=== PATIENT | female | born 1955 | race Caucasian/White ===

== ENCOUNTER → 2019-01-23 | Outpatient (CLI) | payer MEDICARE ==
--- NOTE | 2019-01-24 07:09 | US ---
EXAMINATION TYPE: US venous doppler duplex LE LT DATE OF EXAM: 01/23/2019 6:09 PM COMPARISON: NONE CLINICAL HISTORY: R60.0 Left leg edema. Localized edema x 1 week. No hx of DVT. Patient does not victor m e blood thinners. SIDE PERFORMED: Left TECHNIQUE: The lower extremity deep venous system is examined utilizing real time linear array sonog nyla with graded compression, doppler sonography and color-flow sonography. VESSELS IMAGED: Common Femoral Vein Deep Femoral Vein Greater Saphenous Vein * Femoral Vein Popliteal Vein Small Saphenous Vein * Proximal Calf Veins (* superficial vessels) Left Leg: Cannot visualize EIV due to body habitus. No evidence of DVT in veins imaged from prox tra f veins to CFV. Limited evaluation of distal femoral vein due to limited visibility and patient's leeanna bility to tolerate compression. IMPRESSION: No sonographic evidence of deep venous thrombosis from the common femoral vein to proxim al calf veins. Nonvisualization of the external iliac vein due to patient body habitus. Limited evalu ation of the distal femoral vein.
== END | disposition home or self-care (01) ==
LOC: RADUSMAIN 17:37
PROVIDERS: ATTEND Family Medicine
DX: R60.0 Localized edema (principal)

== ENCOUNTER 2019-12-11 18:35 | Emergency (ER) | payer OTHER, MEDICARE ==
[2019-12-11 18:50] VITALS: RESP 18; TEMP 98.2
[2019-12-11] MEDS ORDERED: ACETAMINOPHEN TAB 500 MG TAB PO STA (19:39)
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
--- NOTE | 2019-12-11 20:21 | XR ---
EXAMINATION TYPE: XR ankle complete RT DATE OF EXAM: 12/11/2019 COMPARISON: NONE HISTORY: Pain TECHNIQUE: 3 views FINDINGS: There is soft tissue swelling around the ankle joint. Ankle mortise is anatomic. There is n ondisplaced transverse fracture across the base of the fifth metatarsal. I see no focal bone destruct ion. IMPRESSION: Soft tissue swelling. Nondisplaced fifth metatarsal fracture.
--- NOTE | 2019-12-11 20:22 | XR ---
EXAMINATION TYPE: XR foot complete RT DATE OF EXAM: 12/11/2019 COMPARISON: NONE HISTORY: Pain TECHNIQUE: 3 views FINDINGS: There is soft tissue swelling around the foot. There is a comminuted nondisplaced fracture of the base of the fifth metatarsal. There is no dislocation. The toes appear intact. IMPRESSION: Acute fifth metatarsal fracture. Soft tissue swelling.
--- NOTE | 2019-12-11 20:23 | XR ---
EXAMINATION TYPE: XR chest 2V DATE OF EXAM: 12/11/2019 COMPARISON: NONE HISTORY: Pain TECHNIQUE: 2 views FINDINGS: Heart appears enlarged. There is no heart failure. Costophrenic angles are clear. Lungs are clear of infiltrate. IMPRESSION: Cardiomegaly. No active cardiopulmonary disease.
[2019-12-11] MEDS ORDERED: MORPHINE SULFATE 4 MG/ML SYRINGE IM STA (21:24)
[2019-12-11 22:18] VITALS: PULSE 78
[2019-12-11] MEDS ORDERED: lisinopriL 20 MG TAB PO STA (22:46)
[2019-12-12 01:58] VITALS: BP 201/84
== END 2019-12-11 23:59 | disposition home or self-care (01) ==
LOC: EC 18:35
DX: S92.354A Nondisplaced fracture of fifth metatarsal bone, right foot, initial encounter for closed fracture (principal); R07.89 Other chest pain; V44.5XXA Car driver injured in collision with heavy transport vehicle or bus in traffic accident, initial encounter; Y92.410 Unspecified street and highway as the place of occurrence of the external cause; Z87.891 Personal history of nicotine dependence
CPT/HCPCS: 73610; 73630; 71046; 99284; 29515; 96372; J2270

== ENCOUNTER 2022-08-11 08:33 | Day surgery (SDC) | payer MEDICARE ==
[2022-08-09 11:04] VITALS: BMI 55.5
[~2022-08-11 08:33] MED LIST: DEXAMETHASONE SOD PHOSPHATE 4 MG/ML 1 ML VIAL IV ONE; HYDROmorphone 0.5 MG/0.5 ML SYRINGE IVP PRN; LACTATED RINGERS 1,000 ML IV SCH; MIDAZOLAM 2 MG/2 ML VIAL IV PRN; ONDANSETRON 4 MG/2 ML VIAL IVP ONE; ceFAZolin 3 GM in SODIUM CHLORIDE 0.9% 100 ML IVPB PRN
[2022-08-11] MEDS ORDERED: SODIUM CHLORIDE 0.9% 500 ML 500 ML IV ONE (09:31)
[2022-08-11] MEDS ORDERED: MIDAZOLAM 2 MG/2 ML VIAL IVP ONE ×2 (09:32)
--- NOTE | 2022-08-11 09:35 | P.GSHP ---
History of Present Illness H&P Date: 08/11/22 Chief Complaint: chronic kidney disease 67 year old female with history of chronic kidney disease in need of access for possible future dialysis presents to the hospital for elective left radial cephalic fistula creation. She underwent ultrasound which demonstrated good siz e cephalic vein at the wrist up to the elbow. She denies any fevers, chills, chest pain or shortness of breath. - Review of Systems All systems: negative (what is mentioned in the PMH or HPI) Past Medical History Past Medical History: Diabetes Mellitus, Eye Disorder, Hyperlipidemia, Hypertension, Renal Disease, Skin Disorder, Thyroid Disorder Additional Past Medical History / Comment(s): Left shoulder and right hip pain. Kidney Disease - Stage 4. Unknown name of skin disorder. Cataract in one eye. History of Any Multi-Drug Resistant Organisms: None Reported Past Surgical History: Section, Tonsillectomy Additional Past Surgical History / Comment(s): "Female surgery, can't remember name of surgery." Past Anesthesia/Blood Transfusion Reactions: Previous Problems w/ Anesthesia Additional Past Anesthesia/Blood Transfusion Reaction / Comment(s): Difficulty urinating after one surgery. Past Psychological History: No Psychological Hx Reported Smoking Status: Former smoker Past Alcohol Use History: None Reported Additional Past Alcohol Use History / Comment(s): Quit smoking 3 yrs ago, smoked for 20 yrs. Past Drug Use History: None Reported - Past Family History Mother Family Medical History: No Reported History Medications and Allergies Home Medications Medication Instructions Recorded Confirmed Type Benazepril HCl 20 mg PO QAM 08/09/22 08/11/22 History Cephalexin [Keflex] 250 mg PO 08/09/22 08/11/22 History Dialyvite 1 tab PO DAILY 08/09/22 08/11/22 History Ergocalciferol [Vitamin D2 (1250 1,250 mcg PO TUFR 08/09/22 08/11/22 History Mcg = 30783 Iu)] Ferrous Sulfate [Iron] 650 mg PO DAILY 08/09/22 08/11/22 History Glimepiride [Amaryl] 1 mg PO DAILY 08/09/22 08/11/22 History Levothyroxine Sodium [Synthroid] 150 mcg PO QAM 08/09/22 08/11/22 History Rosuvastatin Calcium 5 mg PO 05/17/23 05/19/23 History calcitrioL [Calcitriol] 0.5 mcg PO DAILY 08/09/22 08/11/22 History Allergies Allergy/AdvReac Type Severity Reaction Status Date / Time No Known Allergies Allergy Verified 08/11/22 09:03 Surgical - Exam Vital Signs Temp Pulse Resp BP Pulse Ox 98.6 F 65 14 171/74 94 L 08/11/22 09:20 08/11/22 09:20 08/11/22 09:20 08/11/22 09:20 08/11/22 09:20 - General well developed, well nourished, no distress - Eyes PERRL, normal ocular movement - ENT normal pinna, normal nares - Neck no masses - Respiratory normal expansion, normal respiratory effort - Cardiovascular Rhythm: regular - Abdomen Abdomen: soft, non tender - Neurologic normal sensation - Musculoskeletal normal gait - Psychiatric oriented to time, oriented to person, oriented to place, speech is normal palpable radial arteries bilateral Assessment and Plan Assessment: Chronic kidney disease stage 5 Plan: To OR for left arteriovenous fistula creation. Consent signed. Questions answered.
[2022-08-11 09:37] LABS: Glucose,Whole Blood 113 mg/dL (70-110)
[2022-08-11 09:42] LABS: Calcium 8.6 mg/dL (8.4-10.2)
[2022-08-11 09:44] LABS: Potassium 5.6 mmol/L (3.5-5.1)
[2022-08-11] MEDS ORDERED: LIDOCAINE 2% INJ 20 MG/ML (2 ML VIAL) ONE (09:48)
[2022-08-11] MEDS ORDERED: fentaNYL (PF) 50 MCG/ML 2 ML AMP ONE (09:48)
[2022-08-11] MEDS ORDERED: LIDOCAINE 2%-EPI 1:100,000 20 ML VIAL ONE (09:48)
[2022-08-11] MEDS ORDERED: MIDAZOLAM 2 MG/2 ML VIAL ONE (09:48)
[2022-08-11] MEDS ORDERED: ROPIVACAINE 5 MG/ML 30 ML VIAL ONE (09:48)
[2022-08-11] MEDS ORDERED: BUPIVACAINE (PF) 0.25% 30 ML VIAL SQ ONE ×2 (10:18→11:05)
[2022-08-11] MEDS ORDERED: LIDOCAINE 1% INJ 10MG/ML (20 ML MDV) SQ ONE ×2 (10:21→11:05)
--- NOTE | 2022-08-11 10:21 | P.ANPRN ---
Procedure Note - Anesthesia - Nerve Block Performed Left Supraclavicular Single Time Out Performed: Yes (0936) Date of Procedure: 08/11/22 Procedure Start Time: :37 Procedure Stop Time: :44 Location of Patient: PreOp Indication: Acute Post-Operative Pain, Requested by Surgeon Specifically requested for management of pain by DrFred: Juan Bryant Sedation Type: Sedate with meaningful contact maintained Preparation: Sterile Prep Position: Supine Catheter: None Needle Types: Pajunk Needle Gauge: 21 Ultrasound used to visualize needle placement: Yes Ultrasound used to observe medication spread: Yes Injectate: Other (see comment) (Ropi 0.5% 20cc and Lido 2% with epi 20cc) Blood Aspirated: No Pain Paresthesia on Injection Noted: No Resistance on Injection: Normal Image Stored and Saved: Yes Events: Uneventful and Well Tolerated
[2022-08-11 11:35] VITALS: TEMP 97.4
[2022-08-11 11:40] LABS: Glucose,Whole Blood 164 mg/dL (70-110)
--- NOTE | 2022-08-11 12:03 | P.OP ---
Date of Procedure: 08/11/22 Preoperative Diagnosis: Chronic renal failure Postoperative Diagnosis: Same Procedure(s) Performed: Left upper extremity radial-cephalic fistula creation Anesthesia: MAC Surgeon: Tapan Marin Estimated Blood Loss (ml): 30 Pathology: none sent Condition: stable Disposition: PACU Indications for Procedure: 67 year old female with history of chronic renal failure presents to the hospital for elective left upper extremity fistula creation. Ultrasound was completed prior and was found to have appropriate size cephalic vein on the left and presents today for radial-cephalic fistula creation. Operative Findings: Diminutive cephalic vein at the wrist. Description of Procedure: After written and informed consent was obtained from the patient the patient was brought to the operative suite and laid in a supine position. The left arm was prepped and draped in the usual sterile fashion after appropriate anesthesia was performed per the anesthesiologist. Utilizing ultrasound the cephalic vein was visualized and marked and shown to be good size. A small vertical incision was then created with a 15 blade scalpel just proximal to the wrist and dissection was carried down to the radial artery which was dissected free in a circumferential manner. Proximal distal control was then obtained with vessel loops. Attention was then placed back to the cephalic vein which was located and dissected free in a circumferential manner distally to the wrist. At the wrist it was ligated with silk suture. Further dissection was carried around the vein and the vein was brought over to the radial artery. Serial dilation was then performed on the vein and good backbleeding was noted. Vein was diminutive roughly measuring 2.5 mm. Patient was administered 3000 units of heparin and the radial artery was clamped at the proximal and distal aspect. Utilizing 11 blade scalpel and arteriotomy was created and extended with Pott Tobias scissors. There was good brisk backbleeding noted from the radial artery and pulsatile blood flow visualized from the proximal aspect. The vein was then spatulated and an end-to-side anastomosis was created with a 7-0 Prolene suture. Prior to last sutures being placed the control was released from the vein revealing good backbleeding and distal control on the radial artery was released revealing good back flow. The proximal control was then released and good pulsatile blood flow was visualized in the fistula and final sutures were secured. The area was copiously irrigated with antibiotic solution. Hemostasis was assured. The vessels were then interrogated with Doppler which demonstrated good multiphasic signal distal to the anastomosis as well as positive pulse within the vein consistent with good fistula creation. Under ultrasound there was pulsatile flow noted in the cephalic vein. The incision was then closed in a multilayer fashion. The skin was cleansed and dressings were placed. Patient does procedure well and was sent to PACU for recovery.
[2022-08-11 14:17] VITALS: BP 155/67; PULSE 64; RESP 18
== END 2022-08-11 14:42 | disposition home or self-care (01) ==
LOC: OR 08:33
PROVIDERS: ATTEND Surgery
DX: I12.9 Hypertensive chronic kidney disease with stage 1 through stage 4 chronic kidney disease, or unspecified chronic kidney disease (principal); N18.4 Chronic kidney disease, stage 4 (severe); E11.22 Type 2 diabetes mellitus with diabetic chronic kidney disease; E78.5 Hyperlipidemia, unspecified; E03.9 Hypothyroidism, unspecified; Z87.891 Personal history of nicotine dependence; Z79.890 Hormone replacement therapy; Z79.899 Other long term (current) drug therapy; Z79.84 Long term (current) use of oral hypoglycemic drugs; G89.18 Other acute postprocedural pain
CPT/HCPCS: 64415; 80048; 36821; J2250; J1100; J0690; J2405; J2001 ×2; J3010; J2795

== ENCOUNTER → 2022-10-09 | Day surgery (SDC) | payer MEDICARE ==
[2022-10-04 10:39] VITALS: BMI 56.0
[~2022-10-09] MED LIST changes: +DEXAMETHASONE SOD PHOSPHATE 4 MG/ML 1 ML VIAL ONE; +HEPARIN SODIUM,PORCINE 2,000 UNIT in SODIUM CHLORIDE 0.9% 500 ML 500 ML IRRIGATION ONE; +HEPARIN SODIUM,PORCINE 5,000 UNIT/ML 1 ML VIAL ONE; +IV FLUID CONTINUATION 200 ML IV ONE; +KETAMINE 10 MG/ML 20 ML VIAL ONE; +LIDOCAINE 1% (10MG/ML) FOR IV START INTRADERMA PRN; -MIDAZOLAM 2 MG/2 ML VIAL IV PRN; +MIDAZOLAM 2 MG/2 ML VIAL IVP ONE; +MIDAZOLAM 2 MG/2 ML VIAL ONE; +PROPOFOL 10 MG/ML 20 ML VIAL IV ONE; +Pre Op ABX Message 1 EACH MISC MISCELLANE ONE; +ROPIVACAINE 5 MG/ML 30 ML VIAL ONE; +SODIUM CHLORIDE 0.9% (PF) 10 ML VIAL ONE; +SODIUM CHLORIDE 0.9% 100 ML with ceFAZolin 2,000 MG IV ONE; +ceFAZolin 2 GM in SODIUM CHLORIDE 0.9% 500 ML 500 ML IRRIGATION ONE; -ceFAZolin 3 GM in SODIUM CHLORIDE 0.9% 100 ML IVPB PRN; +droPERidol 5 MG/2 ML VIAL IVP PRN; +fentaNYL (PF) 50 MCG/ML 2 ML AMP IVP ONE; +fentaNYL (PF) 50 MCG/ML 2 ML AMP ONE
[2022-10-09 12:29] LABS: HCT 33.8 % (34.0-46.0); HGB 10.5 gm/dL (11.4-16.0); Hypochromasia Slight; MCH 30.8 pg (25.0-35.0); MCHC 31.1 g/dL (31.0-37.0); MCV 98.9 fL (80.0-100.0); Mean Platelet Volume 7.6; Platelet Count 278 k/uL (150-450); RBC 3.41 m/uL (3.80-5.40)
[2022-10-09 12:48] LABS: Glucose 128 mg/dL (74-99); Sodium 138 mmol/L (137-145)
[2022-10-09 12:49] LABS: African American GFR (CKD) 22 (>60 ml/min/1.73 sqM); Anion Gap 8 mmol/L; Blood Urea Nitrogen 52 mg/dL (7-17); Calcium 8.5 mg/dL (8.4-10.2); Carbon Dioxide 24 mmol/L (22-30); Chloride 106 mmol/L (98-107); Non-African American GFR(CKD) 19 (>60 ml/min/1.73 sqM)
[2022-10-09 13:00] LABS: Potassium 5.1 mmol/L (3.5-5.1)
--- NOTE | 2022-10-09 13:32 | P.ANPRN ---
Procedure Note - Anesthesia - Nerve Block Performed Left Supraclavicular Single Time Out Performed: Yes Date of Procedure: 10/09/22 Procedure Start Time: 13:10 Procedure Stop Time: 13:16 Location of Patient: PreOp Indication: Acute Post-Operative Pain, Requested by Surgeon Specifically requested for management of pain by DrFred: Tapan Marin Sedation Type: Sedate with meaningful contact maintained Preparation: Sterile Prep Position: Supine Needle Types: Pajunk Needle Gauge: 21 Ultrasound used to visualize needle placement: Yes Ultrasound used to observe medication spread: Yes Injectate: 0.5% Ropivacaine (see comment for volume) (20 ml + 10 ml NS + 4 mg dexamethason) Blood Aspirated: No Pain Paresthesia on Injection Noted: No Resistance on Injection: Normal Image Stored and Saved: Yes Events: Uneventful and Well Tolerated
[2022-10-09 15:57] VITALS: TEMP 96.9
--- NOTE | 2022-10-09 16:01 | P.OP ---
Date of Procedure: 10/09/22 Preoperative Diagnosis: Chronic kidney disease Postoperative Diagnosis: Same Procedure(s) Performed: Left upper extremity radiocephalic fistula creation Anesthesia: regional Surgeon: Tapan Marin Estimated Blood Loss (ml): 10 Pathology: none sent Condition: stable Disposition: PACU Indications for Procedure: 67-year-old female with history of chronic kidney disease and previous radiocephalic fistula that failed presented to the office and discussion was had due to her large cephalic vein that split and traveled across the dorsal aspect of her forearm to her hand the large aspect of the vein was not utilized but a branch and therefore we discussed revision with possible utilization of this larger cephalic vein. She presents today for redo radiocephalic fistula. Description of Procedure: After written and informed consent was obtained from the patient the patient was brought to the operative suite and laid in a supine position. The left arm was prepped and draped in the usual sterile fashion after appropriate anesthesia was performed per the anesthesiologist. Utilizing ultrasound the cephalic vein was visualized and marked and shown to be good size. A small vertical incision was then created with a 15 blade scalpel just proximal to the wrist and dissection was carried down to the radial artery which was dissected free in a circumferential manner. Proximal distal control was then obtained with vessel loops. Attention was then placed back to the cephalic vein which was located and shown to be overlying the middle portion of her forearm therefore a small incision was created at the dorsal aspect of the lower arm and the cephalic vein was dissected free in a circumferential manner distally to the wrist. At the wrist it was ligated with silk suture. Further dissection was carried around the vein and the vein was brought over to the radial artery by tunneling from the venous incision to the arterial incision. Serial dilation was then performed on the vein and good backbleeding was noted. Patient was administered 3000 units of heparin and the radial artery was clamped at the proximal and distal aspect. Utilizing 11 blade scalpel and arteriotomy was created and extended with Pott Tobias scissors. There was good brisk backbleeding noted from the radial artery and pulsatile blood flow visualized from the proximal aspect. The vein was then spatulated and an end-to-side anastomosis was created with a 7-0 Prolene suture. Prior to last sutures being placed the control was released from the vein revealing good backbleeding and distal control on the radial artery was released revealing good back flow. The proximal control was then released and good pulsatile blood flow was visualized in the fistula and final sutures were secured. The area was copiously irrigated with antibiotic solution. Hemostasis was assured. The vessels were then interrogated with Doppler which demonstrated good multiphasic signal distal to the anastomosis as well as positive bruit within the vein consistent with good fistula creation. Under ultrasound there was pulsatile flow noted in the cephalic vein. The incision was then closed in a multilayer fashion. The skin was cleansed and dressings were placed. Patient does procedure well and was sent to PACU for recovery. Plan - Discharge Summary Discharge Rx Participant: No New Discharge Prescriptions: No Action Ergocalciferol [Vitamin D2 (1250 Mcg = 05142 Iu)] 1,250 mcg PO TUFR calcitrioL [Calcitriol] 0.5 mcg PO DAILY Levothyroxine Sodium [Synthroid] 150 mcg PO QAM Ferrous Sulfate [Iron] 650 mg PO DAILY Dialyvite 1 tab PO DAILY Cephalexin [Keflex] 250 mg PO HS Glimepiride [Amaryl] 1 mg PO DAILY Rosuvastatin Calcium 5 mg PO HS Benazepril HCl 20 mg PO QAM Discharge Medication List Benazepril HCl 20 mg PO QAM 08/09/22 [History] Cephalexin [Keflex] 250 mg PO HS 08/09/22 [History] Dialyvite 1 tab PO DAILY 08/09/22 [History] Ergocalciferol [Vitamin D2 (1250 Mcg = 42181 Iu)] 1,250 mcg PO TUFR 08/09/22 [History] Ferrous Sulfate [Iron] 650 mg PO DAILY 08/09/22 [History] Glimepiride [Amaryl] 1 mg PO DAILY 08/09/22 [History] Levothyroxine Sodium [Synthroid] 150 mcg PO QAM 08/09/22 [History] Rosuvastatin Calcium 5 mg PO HS 08/09/22 [History] calcitrioL [Calcitriol] 0.5 mcg PO DAILY 08/09/22 [History] Follow up Appointment(s)/Referral(s): Tapan Marin DO [STAFF PHYSICIAN] - 2 Weeks Activity/Diet/Wound Care/Special Instructions: ok to shower in 48 hours no heavy lifting greater than 15 lbs x 2 weeks Discharge Disposition: HOME SELF-CARE
[2022-10-09 16:04] LABS: Glucose,Whole Blood 136 mg/dL (70-110)
[2022-10-09 16:49] VITALS: PULSE 66; RESP 18
[2022-10-09 17:33] VITALS: BP 152/67
== END | disposition home or self-care (01) ==
LOC: OR 11:07
PROVIDERS: ATTEND Surgery
DX: N18.9 Chronic kidney disease, unspecified (principal); I12.9 Hypertensive chronic kidney disease with stage 1 through stage 4 chronic kidney disease, or unspecified chronic kidney disease; E78.5 Hyperlipidemia, unspecified; E03.9 Hypothyroidism, unspecified; G89.18 Other acute postprocedural pain; Z79.899 Other long term (current) drug therapy; Z90.710 Acquired absence of both cervix and uterus; Z90.89 Acquired absence of other organs; Z98.891 History of uterine scar from previous surgery
CPT/HCPCS: 64415; 80048; 85027; 36821; J2250; J1644; J1100; J0690 ×2; J2405; J3010; J2795; J2704

== ENCOUNTER 2023-09-09 22:16 | Emergency (ER) | payer MEDICARE ==
[2023-09-09 22:30] VITALS: TEMP 97.6
--- NOTE | 2023-09-09 22:51 | ED ---
Fall HPI - General Chief Complaint: Fall Stated Complaint: Fall-on thinners Time Seen by Provider: 09/09/23 22:22 Source: patient Mode of arrival: EMS Limitations: no limitations - History of Present Illness Initial Comments: Patient is a 68-year-old woman who is sent here from [facility] to have evaluation for head injury. Patient reportedly had stood up from commode, lost balance fell backwards striking head. Patient unsure whether there was loss of consciousness. The fall was not witnessed. The patient complains of right posterior headache and swelling. She did not note any bleeding. Patient denies neck pain. Denies other injury. Complaint: fall Onset/Timin -: hour(s) Fall From: standing Fall Witnessed: no Place Fall Occurred: [facility] Loss of Consciousness: unsure Prolonged Down Time?: no Symptoms Prior to Fall: dizziness Location: head Severity: moderate Quality: dull Context: tripped/slipped Associated Symptoms: headache - Related Data Home Medications Medication Instructions Recorded Confirmed Benazepril HCl 20 mg PO QAM 08/09/22 10/09/22 Cephalexin [Keflex] 250 mg PO 08/09/22 10/09/22 Dialyvite 1 tab PO DAILY 08/09/22 10/09/22 Ergocalciferol [Vitamin D2 (1250 1,250 mcg PO TUFR 08/09/22 10/09/22 Mcg = 05979 Iu)] Ferrous Sulfate [Iron] 650 mg PO DAILY 08/09/22 10/09/22 Glimepiride [Amaryl] 1 mg PO DAILY 08/09/22 10/09/22 Levothyroxine Sodium [Synthroid] 150 mcg PO QAM 08/09/22 10/09/22 Rosuvastatin Calcium 5 mg PO 08/09/22 10/09/22 calcitrioL 0.5 mcg PO DAILY 08/09/22 10/09/22 Allergies Allergy/AdvReac Type Severity Reaction Status Date / Time No Known Allergies Allergy Verified 10/09/22 12:08 Review of Systems ROS Statement: Those systems with pertinent positive or pertinent negative responses have been documented in the HPI. ROS Other: All systems not noted in ROS Statement are negative. Constitutional: Denies: fever Eyes: Denies: vision change ENT: Denies: hearing loss, epistaxis Respiratory: Denies: cough, dyspnea Cardiovascular: Denies: chest pain, palpitations Gastrointestinal: Denies: abdominal pain, nausea, vomiting Genitourinary: Denies: dysuria, hematuria Musculoskeletal: Denies: back pain Skin: Denies: rash Neurological: Reports: headache. Denies: weakness, numbness, confusion Hematological/Lymphatic: Denies: easy bleeding Past Medical History Past Medical History: Diabetes Mellitus, Eye Disorder, Hyperlipidemia, Hypertension, Renal Disease, Skin Disorder, Thyroid Disorder Additional Past Medical History / Comment(s): Left shoulder and right hip pain. Kidney Disease - Stage 4-no dialysis,has good urine production.scattered raised lumps-Unknown name of skin disorder. left eye cataract, possible Covid infection Resp 2020-was in respiratory distress in ICU for 1 week History of Any Multi-Drug Resistant Organisms: None Reported Past Surgical History: Section, Tonsillectomy Additional Past Surgical History / Comment(s): "Female surgery, can't remember name of surgery.",left cataract removed,rt eye procedure,failed fistula creation left upper arm procedure 08-11-22 Past Anesthesia/Blood Transfusion Reactions: Previous Problems w/ Anesthesia Additional Past Anesthesia/Blood Transfusion Reaction / Comment(s): Difficulty urinating after one surgery. no hx blood transfusion Past Psychological History: Depression Smoking Status: Former smoker - Past Family History Mother Family Medical History: No Reported History Sister(s) Family Medical History: Cancer Additional Family Medical History / Comment(s): uterine CA General Exam Limitations: no limitations General appearance: alert, in no apparent distress Head exam: Present: normocephalic, other (Patient posterior scalp contusion. There is moderate local tenderness, no definite deformity.) Eye exam: Present: normal appearance, PERRL, EOMI. Absent: scleral icterus, conjunctival injection, nystagmus ENT exam: Present: normal oropharynx Neck exam: Present: normal inspection, full ROM. Absent: tenderness, meningismus Respiratory exam: Present: normal lung sounds bilaterally. Absent: respiratory distress, wheezes, rales, rhonchi, stridor, chest wall tenderness, accessory muscle use Cardiovascular Exam: Present: regular rate, normal rhythm, normal heart sounds. Absent: systolic murmur, diastolic murmur, rubs, gallop GI/Abdominal exam: Present: soft. Absent: distended, tenderness, guarding, rebound, rigid Extremities exam: Present: normal inspection, normal capillary refill. Absent: pedal edema, calf tenderness Back exam: Present: normal inspection. Absent: vertebral tenderness Neurological exam: Present: alert, oriented X3, CN II-XII intact. Absent: motor sensory deficit Skin exam: Present: warm, dry, intact, normal color. Absent: rash Course Vital Signs 09/09/23 09/10/23 22:20 00:36 Temperature 97.6 F Pulse Rate 73 72 Respiratory 16 18 Rate Blood Pressure 122/95 129/76 O2 Sat by Pulse 96 98 Oximetry Medical Decision Making - Medical Decision Making Patient had CT of the brain which I interpreted as negative for acute intracranial hemorrhage or acute bony injury. Was pt. sent in by a medical professional or institution (, PA, WALL STEAMER, urgent care, hospital, or [facility] [facility]...) When possible be specific @ -[No] Did you speak to anyone other than the patient for history (EMS, parent, family, police, friend...)? What history was obtained from this source @ -[No] Did you review nursing and triage notes (agree or disagree)? Why? @ -[I reviewed and agree with nursing and triage notes] Were old charts reviewed (outside hosp., previous admission, EMS record, old EKG, old radiological studies, urgent care reports/EKG's, [facility] [facility] records)? Report findings @ -[No old charts were reviewed] Differential Diagnosis (chest pain, altered mental status, abdominal pain women, abdominal pain men, vaginal bleeding, weakness, fever, dyspnea, syncope, headache, dizziness, GI bleed, back pain, seizure, CVA, palpatations, mental health, musculoskeletal)? @ -[Differential Musculoskeletal Muscular strain, contusion, ligament sprain, fracture, muscle spasm, nerve compression, intracranial hemorrhage. This is not meant to be in all inclusive list EKG interpreted by me (3pts min.). @ -[As above] X-rays interpreted by me (1pt min.). @ -[None done] CT interpreted by me (1pt min.). @ -[I interpreted as above U/S interpreted by me (1pt. min.). @ -[None done] What testing was considered but not performed or refused? (CT, X-rays, U/S, labs)? Why? @ -[None] What meds were considered but not given or refused? Why? @ -[None] Did you discuss the management of the patient with other professionals (professionals i.e. , PA, WALL STEAMER, lab, RT, psych nurse, social service technician, intellectual property lawyer, teacher, weapons electrical engineering officer, rn case manager)? Give summary @ -[No] Was smoking cessation discussed for >3mins.? @ -[No] Was critical care preformed (if so, how long)? @ -[No] Were there social determinants of health that impacted care today? How? (Homelessness, low income, unemployed, alcoholism, drug addiction, transportation, low edu. Level, literacy, decrease access to med. care, fdc, rehab)? @ -[No] Was there de-escalation of care discussed even if they declined (Discuss DNR or withdrawal of care, Hospice)? DNR status @ -[No] What co-morbidities impacted this encounter? (DM, HTN, Smoking, COPD, CAD, Cancer, CVA, ARF, Chemo, Hep., AIDS, mental health diagnosis, sleep apnea, morbid obesity)? @ -[None] Was patient admitted / discharged? Hospital course, mention meds given and route, prescriptions, significant lab abnormalities, going to OR and other pertinent info. @ -[Patient is a 68-year-old woman here to have evaluation after fall. CT is ordered as the patient does have larger than expected scalp hematoma, to rule out cranial fracture. Undiagnosed new problem with uncertain prognosis? @ -[No] Drug Therapy requiring intensive monitoring for toxicity (Heparin, Nitro, Insulin, Cardizem)? @ -[No] Were any procedures done? @ -[No] Diagnosis/symptom? @ -[Closed head injury Scalp hematoma Acute, or Chronic, or Acute on Chronic? @ -[Acute Uncomplicated (without systemic symptoms) or Complicated (systemic symptoms)? @ -[Uncomplicated Side effects of treatment? @ -[No] Exacerbation, Progression, or Severe Exacerbation? @ -[No] Poses a threat to life or bodily function? How? (Chest pain, [place], [place], pneumonia, PE, COPD, DKA, ARF, appy, cholecystitis, CVA, Diverticulitis, Homicidal, Suicidal, threat to staff... and all critical care pts) @ -[No] Disposition Clinical Impression: Fall, Head injury Disposition: HOME SELF-CARE Condition: Good Instructions (If sedation given, give patient instructions): Fall Prevention for Older Adults (ED), Head Injury (ED) Is patient prescribed a controlled substance at d/c from ED?: No Referrals: Marcy Adams MD [Primary Care Provider] - 1-2 days
--- NOTE | 2023-09-09 23:50 | CT ---
EXAM: CT Head Without Intravenous Contrast CLINICAL HISTORY: ITS.REASON CT Reason: fall injury TECHNIQUE: Axial computed tomography images of the head/brain without intravenous contrast. CTDI is 49.1 mGy and DLP is 1227.4 mGy-cm. This CT exam was performed using one or more of the following dose reduction techniques: automated exposure control, adjustment of the mA and/or kV according to patient size, and/or use of iterative reconstruction technique. COMPARISON: No relevant prior studies available. FINDINGS: No acute intracranial hemorrhage. No midline shift or mass effect. The territorial friend-white matter differentiation is maintained throughout. RIGHT parietal scalp soft tissue swelling. Age-related cerebral volume loss. Periventricular and subcortical white matter hypoattenuation, consistent with chronic microangiopathy. The visualized orbits appear grossly unremarkable. The calvarium is intact. The visualized paranasal sinuses and mastoid air cells are grossly clear. IMPRESSION: No acute intracranial hemorrhage, midline shift, or mass effect. RIGHT parietal scalp soft tissue swelling.
[2023-09-10 00:38] VITALS: BP 129/76; PULSE 72; RESP 18
== END 2023-09-10 01:20 | disposition home or self-care (01) ==
LOC: EC 22:16
DX: S00.03XA Contusion of scalp, initial encounter (principal); Z87.891 Personal history of nicotine dependence; W17.89XA Other fall from one level to another, initial encounter
CPT/HCPCS: 70450; 99284

== ENCOUNTER 2023-10-27 13:15 | Inpatient (IN) | payer MEDICARE ==
--- NOTE | 2023-10-27 13:34 | ED ---
General Adult HPI - General Chief complaint: Altered Mental Status Stated complaint: hypotension, syncope Time Seen by Provider: 10/27/23 13:18 Source: patient, EMS, RN notes reviewed, old records reviewed Mode of arrival: EMS Limitations: no limitations - History of Present Illness Initial comments: Patient is a 68-year-old female presenting to the emergency department with syncopal episodes. Episode started within the last hour. Patient comes from [facility]term and had a syncopal episode there. There is questionable hypotension. Patient did have 1 syncopal episode by EMS and was drowsy several times however blood pressure they obtained was not hypotensive. Patient admits to feeling drowsy and fatigued at this time however has no other complaints. No chest pain. No dyspnea. Patient denies confusion. - Related Data Home Medications Medication Instructions Recorded Confirmed Dialyvite 1 tab PO DAILY 08/09/22 10/27/23 Ergocalciferol [Vitamin D2 (1250 1,250 mcg PO WE 08/09/22 10/27/23 Mcg = 47443 Iu)] Ferrous Sulfate [Iron] 325 mg PO BID 08/09/22 10/27/23 Acetaminophen Tab [Tylenol] 650 mg PO Q6H PRN 10/27/23 10/27/23 Apixaban [Eliquis] 5 mg PO BID 10/27/23 10/27/23 Atorvastatin [Lipitor] 10 mg PO DAILY 10/27/23 10/27/23 Atorvastatin [Lipitor] 20 mg PO HS 10/27/23 10/27/23 Budesonide [Pulmicort] 0.5 mg INHALATION RT-BID 10/27/23 10/27/23 Bumetanide [Bumex] 1 mg PO DAILY 10/27/23 10/27/23 Bumetanide [Bumex] 1 mg PO Q48H 10/27/23 10/27/23 Dulaglutide [Trulicity] 0.75 mg SQ FR 10/27/23 10/27/23 Famotidine [Pepcid] 10 mg PO DAILY 10/27/23 10/27/23 Insulin Glargine [Lantus Vial] 10 unit SQ DAILY 10/27/23 10/27/23 Insulin Lispro [Admelog Solostar] 2 units SQ DAILY@1100 10/27/23 10/27/23 Insulin Lispro [Admelog Solostar] See Protocol SQ ACHS 10/27/23 10/27/23 Ipratropium-Albuterol Nebulize 3 ml INHALATION RT-BID 10/27/23 10/27/23 [Duoneb 0.5 mg-3 mg/3 ml Soln] L.acidoph,Paracasei, B.lactis 1 cap PO DAILY 10/27/23 10/27/23 [Probiotic] Levothyroxine Sodium [Synthroid] 175 mcg PO DAILY 10/27/23 10/27/23 Metoprolol Tartrate [Lopressor] 25 mg PO DAILY 10/27/23 10/27/23 Potassium Chloride ER [K-Dur 20] 20 meq PO Q48H 10/27/23 10/27/23 Thiamine [Vitamin B-1] 100 mg PO DAILY 10/27/23 10/27/23 amLODIPine [Norvasc] 10 mg PO DAILY 10/27/23 10/27/23 sitaGLIPtin [Januvia] 50 mg PO DAILY 10/27/23 10/27/23 Allergies Allergy/AdvReac Type Severity Reaction Status Date / Time No Known Allergies Allergy Verified 10/27/23 13:37 Review of Systems ROS Statement: Those systems with pertinent positive or pertinent negative responses have been documented in the HPI. ROS Other: All systems not noted in ROS Statement are negative. Constitutional: Denies: fever Eyes: Denies: eye pain ENT: Denies: ear pain Respiratory: Denies: dyspnea Cardiovascular: Denies: chest pain Gastrointestinal: Denies: abdominal pain Musculoskeletal: Denies: back pain Past Medical History Past Medical History: Diabetes Mellitus, Eye Disorder, Hyperlipidemia, Hypertension, Renal Disease, Skin Disorder, Thyroid Disorder Additional Past Medical History / Comment(s): Left shoulder and right hip pain. Kidney Disease - Stage 4-no dialysis,has good urine production.scattered raised lumps-Unknown name of skin disorder. left eye cataract, possible Covid infection Resp 2020-was in respiratory distress in ICU for 1 week History of Any Multi-Drug Resistant Organisms: None Reported Past Surgical History: Section, Tonsillectomy Additional Past Surgical History / Comment(s): "Female surgery, can't remember name of surgery.",left cataract removed,rt eye procedure,failed fistula creation left upper arm procedure 08-11-22 Past Anesthesia/Blood Transfusion Reactions: Previous Problems w/ Anesthesia Additional Past Anesthesia/Blood Transfusion Reaction / Comment(s): Difficulty urinating after one surgery. no hx blood transfusion Past Psychological History: Depression Smoking Status: Former smoker Past Alcohol Use History: Unable to Obtain Past Drug Use History: Unable to Obtain - Past Family History Mother Family Medical History: No Reported History Sister(s) Family Medical History: Cancer Additional Family Medical History / Comment(s): uterine CA General Exam Limitations: no limitations General appearance: alert Head exam: Present: atraumatic Eye exam: Present: normal appearance, PERRL, EOMI Respiratory exam: Present: normal lung sounds bilaterally Cardiovascular Exam: Present: bradycardia Expanded Peripheral pulses: 1+: Carotid (R), Carotid (L), Radial (R), Radial (L) GI/Abdominal exam: Present: soft. Absent: tenderness Extremities exam: Present: pedal edema Neurological exam: Present: alert, altered. Absent: motor sensory deficit Psychiatric exam: Present: flat affect Skin exam: Present: other (Ulcer right lower leg) Course Vital Signs 10/27/23 10/27/23 10/27/23 13:18 13:45 14:31 Pulse Rate 53 L 20 L 71 Respiratory 16 20 22 Rate Blood Pressure 116/95 88/51 O2 Sat by Pulse 99 96 Oximetry 10/27/23 10/27/23 14:58 15:30 Pulse Rate 63 64 Respiratory 20 20 Rate Blood Pressure 78/39 79/39 O2 Sat by Pulse 94 L 92 L Oximetry EKG Findings - EKG Results: EKG: interpreted by ERMD ([place] left. First-degree AV block with a ND of 216. Nonspecific intraventricular conduction delay.), sinus rhythm, normal ST/T EKG shows: bradycardia Procedures - Central Line Placement Right Femoral Consent Obtained: verbal consent, emergent situation Patient Placed on Monitor/Pulse Ox: Yes MD Prep: mask, gown, gloves Central Line Prep: Chlorhexidine scrub Local Anesthesia Used: Lidocaine 1% Amount of Anesthesia Used (mls): 1 Ultrasound Used for Placement: Yes Patient Tolerated Procedure: no complications Additional Comments: Unable to pass guidewire. Unable to place central line. No complications otherwise. Right IJ Consent Obtained: verbal consent, emergent situation Patient Placed on Monitor/Pulse Ox: Yes MD Prep: mask, gown, gloves Central Line Prep: Chlorhexidine scrub, sterile drapes applied Local Anesthesia Used: Lidocaine 1% Amount of Anesthesia Used (mls): 2 Ultrasound Used for Placement: Yes Central Line Lumen Inserted: triple Central Line Position: good blood return, all ports aspirated, flushed, capped, sutured in place with 3-0 nylon Dressing Applied: Tegaderm Post Procedure X-Ray: tip of catheter in good position Patient Tolerated Procedure: well, no complications Medical Decision Making - Medical Decision Making Patient presents with syncopal episodes. Patient becomes drowsy and near syn copal several times in the emergency department. Patient appears to had some episodes of asystole. Was pt. sent in by a medical professional or institution (, PA, SIZING MACHINE TENDER, urgent care, hospital, or longterm...) When possible be specific @ -Patient sent in by longterm Did you speak to anyone other than the patient for history (EMS, parent, family, police, friend...)? What history was obtained from this source @ -EMS provides history as patient is a poor historian as well as history of syncopal events and blood pressure monitor Did you review nursing and triage notes (agree or disagree)? Why? @ -I reviewed and agree with nursing and triage notes Were old charts reviewed (outside hosp., previous admission, EMS record, old EKG, old radiological studies, urgent care reports/EKG's, longterm records)? Report findings @ -No old charts were reviewed Differential Diagnosis (chest pain, altered mental status, abdominal pain women, abdominal pain men, vaginal bleeding, weakness, fever, dyspnea, syncope, headache, dizziness, GI bleed, back pain, seizure, CVA, palpatations, mental health, musculoskeletal)? @ -Differential Syncope: Valvular disease, hypertrophic cardiomyopathy, pulmonary embolism, tamponade, tachycardia, bradycardia, [place], hypovolemia, hemorrhage, dissection, anemia, intracranial hemorrhage, seizure, hypoglycemia, carbon monoxide poisoning, this is not meant to be an all-inclusive list. EKG interpreted by me (3pts min.). @ -As above X-rays interpreted by me (1pt min.). @ -Chest x-ray shows cardiomegaly and CHF CT interpreted by me (1pt min.). @ -None done U/S interpreted by me (1pt. min.). @ -None done What testing was considered but not performed or refused? (CT, X-rays, U/S, labs)? Why? @ -None What meds were considered but not given or refused? Why? @ -None Did you discuss the management of the patient with other professionals ([place] i.e. , PA, SIZING MACHINE TENDER, lab, RT, psych nurse, social sciences instructor, promotor group ticket sales, teacher, chief scientific officer, therapeutic case manager)? Give summary @ -Case discussed twice with Dr. Steward who did evaluate patient in the emergency department and did request central line and will take patient for pacemaker. Case also discussed with Dr. Simmons who will consult for critical care. Case also discussed with Dr. Amber irvin who will admit covering Marcy Paul Was smoking cessation discussed for >3mins.? @ -No Was critical care preformed (if so, how long)? @ -70 minutes critical care Were there social determinants of health that impacted care today? How? (Homelessness, low income, unemployed, alcoholism, drug addiction, tra nsportation, low edu. Level, literacy, decrease access to med. care, care home, rehab)? @ -No Was there de-escalation of care discussed even if they declined (Discuss DNR or withdrawal of care, Hospice)? DNR status @ -No What co-morbidities impacted this encounter? (DM, HTN, Smoking, COPD, CAD, Cancer, CVA, ARF, Chemo, Hep., AIDS, mental health diagnosis, sleep apnea, morbid obesity)? @ -Multiple comorbidities including body habitus making central line placement more difficult Was patient admitted / discharged? Hospital course, mention meds given and route, prescriptions, significant lab abnormalities, going to OR and other pertinent info. @ -Patient presents with syncopal episodes. Patient has cardiac pauses, asystole on the monitor. Patient given atropine followed by pacemaker and dopam ine. Dopamine was increased. Patient remains hypotensive. Central line placed and Levophed started. Cardiology to take for pacemaker. Admission orders written. Patient to go to ICU following. Undiagnosed new problem with uncertain prognosis? @ -No Drug Therapy requiring intensive monitoring for toxicity (Heparin, Nitro, Insulin, Cardizem)? @ -No Were any procedures done? @ -Underlying, see above Diagnosis/symptom? @ -React pauses, asystole, syncope Acute, or Chronic, or Acute on Chronic? @ -Acute, acute Uncomplicated (without systemic symptoms) or Complicated (systemic symptoms)? @ -Complicated with hypotension Side effects of treatment? @ -No Exacerbation, Progression, or Severe Exacerbation? @ -No Poses a threat to life or bodily function? How? (Chest pain, [place], [place], pneumonia, PE, COPD, DKA, ARF, appy, cholecystitis, CVA, Diverticulitis, Homicidal, Suicidal, threat to staff... and all critical care pts) @ -High risk of threat to cardiac - Lab Data Result diagrams: 10/27/23 13:59 10/27/23 13:59 Lab Results 10/27/23 10/27/23 10/27/23 Range/Units 13:59 13:59 13:59 WBC 5.4 (3.8-10.6) k/uL RBC 3.78 L (3.80-5.40) m/uL Hgb 11.2 L (11.4-16.0) gm/dL Hct 34.3 (34.0-46.0) % MCV 90.5 (80.0-100.0) fL MCH 29.5 (25.0-35.0) pg MCHC 32.6 (31.0-37.0) g/dL RDW 16.8 H (11.5-15.5) % Plt Count 167 (150-450) k/uL MPV 7.5 Neutrophils % 79 % Lymphocytes % 11 % Monocytes % 5 % Eosinophils % 3 % Basophils % 0 % Neutrophils # 4.2 (1.3-7.7) k/uL Lymphocytes # 0.6 L (1.0-4.8) k/uL Monocytes # 0.3 (0-1.0) k/uL Eosinophils # 0.2 (0-0.7) k/uL Basophils # 0.0 (0-0.2) k/uL Hypochromasia Moderate Anisocytosis Slight PT 11.0 (10.0-12.5) sec INR 1.0 (<1.2) APTT 35.2 H (22.0-30.0) sec Sodium 132 L (137-145) mmol/L Potassium 5.4 H (3.5-5.1) mmol/L Chloride 105 (98-107) mmol/L Carbon Dioxide 20 L (22-30) mmol/L Anion Gap 7 mmol/L BUN 46 H (7-17) mg/dL Creatinine 2.40 H (0.52-1.04) mg/dL Est GFR (CKD-EPI)AfAm 24 (>60 ml/min/1.73 sqM) Est GFR (CKD-EPI)NonAf 20 (>60 ml/min/1.73 sqM) Glucose 88 (74-99) mg/dL Calcium 9.4 (8.4-10.2) mg/dL Magnesium 2.4 H (1.6-2.3) mg/dL Total Bilirubin 0.6 (0.2-1.3) mg/dL AST 30 (14-36) U/L ALT 22 (4-34) U/L Alkaline Phosphatase 128 H (38-126) U/L Troponin I (0.000-0.034) ng/mL NT-Pro-B Natriuret Pep pg/mL Total Protein 6.6 (6.3-8.2) g/dL Albumin 3.3 L (3.5-5.0) g/dL TSH 0.585 (0.465-4.680) mIU/L Free T4 2.76 H (0.78-2.19) ng/dL 10/27/23 10/27/23 Range/Units 13:59 13:59 WBC (3.8-10.6) k/uL RBC (3.80-5.40) m/uL Hgb (11.4-16.0) gm/dL Hct (34.0-46.0) % MCV (80.0-100.0) fL MCH (25.0-35.0) pg MCHC (31.0-37.0) g/dL RDW (11.5-15.5) % Plt Count (150-450) k/uL MPV Neutrophils % % Lymphocytes % % Monocytes % % Eosinophils % % Basophils % % Neutrophils # (1.3-7.7) k/uL Lymphocytes # (1.0-4.8) k/uL Monocytes # (0-1.0) k/uL Eosinophils # (0-0.7) k/uL Basophils # (0-0.2) k/uL Hypochromasia Anisocytosis PT (10.0-12.5) sec INR (<1.2) APTT (22.0-30.0) sec Sodium (137-145) mmol/L Potassium (3.5-5.1) mmol/L Chloride (98-107) mmol/L Carbon Dioxide (22-30) mmol/L Anion Gap mmol/L BUN (7-17) mg/dL Creatinine (0.52-1.04) mg/dL Est GFR (CKD-EPI)AfAm (>60 ml/min/1.73 sqM) Est GFR (CKD-EPI)NonAf (>60 ml/min/1.73 sqM) Glucose (74-99) mg/dL Calcium (8.4-10.2) mg/dL Magnesium (1.6-2.3) mg/dL Total Bilirubin (0.2-1.3) mg/dL AST (14-36) U/L ALT (4-34) U/L Alkaline Phosphatase (38-126) U/L Troponin I <0.012 (0.000-0.034) ng/mL NT-Pro-B Natriuret Pep 2830 pg/mL Total Protein (6.3-8.2) g/dL Albumin (3.5-5.0) g/dL TSH (0.465-4.680) mIU/L Free T4 (0.78-2.19) ng/dL Critical Care Time Critical Care Time: Yes Disposition Clinical Impression: Cardiac asystole, Syncope Disposition: ADMITTED IP TO THIS [facility] Condition: Critical Is patient prescribed a controlled substance at d/c from ED?: No Referrals: Marcy Adams MD [Primary Care Provider] - 1-2 days Time of Disposition: 16:05
[2023-10-27 14:02] LABS: Anisocytosis Slight; Basophils % (A) 0 %; Eosinophils # (A) 0.2 k/uL (0-0.7); Eosinophils % (A) 3 %; HCT 34.3 % (34.0-46.0); HGB 11.2 gm/dL (11.4-16.0); Hypochromasia Moderate; Lymphocytes # (A) 0.6 k/uL (1.0-4.8); Lymphocytes % (A) 11 %; MCH 29.5 pg (25.0-35.0); MCHC 32.6 g/dL (31.0-37.0); MCV 90.5 fL (80.0-100.0); Mean Platelet Volume 7.5; Monocytes # (A) 0.3 k/uL (0-1.0); Monocytes % (A) 5 %; Neutrophils # (A) 4.2 k/uL (1.3-7.7); Neutrophils % (A) 79 %; Platelet Count 167 k/uL (150-450); RBC 3.78 m/uL (3.80-5.40); RDW 16.8 % (11.5-15.5); WBC 5.4 k/uL (3.8-10.6)
[2023-10-27] MEDS: DOPamine DRIP 800 MG in DEXTROSE/WATER 1 250ML.BAG IV SCH (14:06)
[2023-10-27 14:13] LABS: Partial Thromboplastin Time 35.2 sec (22.0-30.0)
[2023-10-27 14:25] LABS: ALT 22 U/L (4-34); AST 30 U/L (14-36); African American GFR (CKD) 24 (>60 ml/min/1.73 sqM); Albumin 3.3 g/dL (3.5-5.0); Alkaline Phosphatase 128 U/L (38-126); Anion Gap 7 mmol/L; Blood Urea Nitrogen 46 mg/dL (7-17); Calcium 9.4 mg/dL (8.4-10.2); Carbon Dioxide 20 mmol/L (22-30); Chloride 105 mmol/L (98-107); Glucose 88 mg/dL (74-99); Magnesium 2.4 mg/dL (1.6-2.3); Non-African American GFR(CKD) 20 (>60 ml/min/1.73 sqM); Potassium 5.4 mmol/L (3.5-5.1); Sodium 132 mmol/L (137-145); Total Bilirubin 0.6 mg/dL (0.2-1.3); Total Protein 6.6 g/dL (6.3-8.2)
[2023-10-27 14:42] LABS: T4, Free (Free Thyroxine) 2.76 ng/dL (0.78-2.19)
--- NOTE | 2023-10-27 14:46 | XR ---
EXAMINATION TYPE: XR chest 1V portable DATE OF EXAM: 10/27/2023 Comparison: 12/11/2019 Clinical History: 68-year-old female syncope Findings: Heart moderately enlarged. Diffuse interstitial density and patchy lower lung densities. No sizable p leural effusion. Impression: Moderate cardiomegaly and diffuse interstitial opacity. Consider CHF with early interstitial edema.
[2023-10-27] MEDS: NOREPINEPHRINE 32 MG in SODIUM CHLORIDE 0.9% 218 ML IV ONE (15:56)
[2023-10-27] MEDS ORDERED: NALOXONE 0.4 MG/ML 1 ML VIAL IV PRN (16:10)
[2023-10-27] MEDS ORDERED: ACETAMINOPHEN TAB 325 MG TAB PO PRN (16:12)
[2023-10-27] MEDS ORDERED: LIDOCAINE 1% INJ 10MG/ML (20 ML MDV) ONE ×2 (16:16→17:40)
[2023-10-27] MEDS: IV FLUID CONTINUATION 1,000 ML IV ONE (16:23)
--- NOTE | 2023-10-27 16:36 | XR ---
EXAMINATION TYPE: XR chest 1V confirm line [facility] DATE OF EXAM: 10/27/2023 COMPARISON: 10/27/2023 HISTORY: 68-year-old female central line placement TECHNIQUE: Single frontal view of the chest is obtained. FINDINGS: Right IJ CVC tip within the right atrium. Moderate cardiomegaly. Diffuse interstitial and patchy opacities are increasing. IMPRESSION: Right IJ CVC tip within the right atrium. There is moderate cardiomegaly and worsening p ulmonary edema.
[2023-10-27] MEDS: PHENYLEPHRINE-0.9% NACL SYG 1,000 MCG/10 ML SYRINGE IVP ONE (16:59)
--- NOTE | 2023-10-27 18:05 | P.CARDCATH ---
Date of Procedure: 10/27/23 Description of Procedure: 1. Attempted left IJ transvenous pacemaker and left IJ right heart catheterization but failed. 2. Temporary transvenous pacemaker, femoral approach Indication: Sick sinus syndrome with severe bradycardia with heart rate in 20s to 30s with 5 to 6 second pauses. Gardner Protocol: Time-out was performed and the correct patient and site were verified. Patient was prepped and draped in sterile fashion. Consent: Risk factors of the procedure including vascular complications, p ericardial effusion and possible were explained to the patient and family. Patient's family was explained an overall poor prognosis of the patient considering multiple comorbidities. Patient's family understands a very poor prognosis and multiple comorbidities of the patient's. They still want patient to be full code and would like me to proceed with temporary pacemaker placement. Moderate conscious sedation: Patient was not given any sedation because of borderline low blood pressure requiring pressors with norepinephrine and dopamine maxed out. She is also mildly delirious. Procedure: Due to morbid obesity and large pannus it was decided to first attempt the internal jugular route further transvenous pacemaker placement. Ultrasound was utilized to identify the internal jugular vein. 10 mL 2% lidocaine was infiltrated over the common femoral vein. Under ultrasound guidance and using a micropuncture needle, right common femoral access was obtained. Once the access was obtained, the needle was exchanged for a micro sheath over the wire using modified Seldinger technique. The micro sheath was exchanged for a 6 Filipino slender glide sheath. A 5 Filipino balloontipped tra nsvenous pacemaker catheter was advanced to the venous sheath under fluoroscopy guidance. The catheter was advancing smoothly to reach the heart. It was not clear if the transvenous pacemaker was entering in the right atrium as it was not capturing. Due to this we remove this catheter and attempted to perform a right heart catheterization. Used a 6 Filipino Lansing-Aditi catheter and advanced with a 6 Filipino sheath and nephroscopy guidance to release the right atrium. right atrial pressures were obtained. After obtaining right atrial pressures the catheter was advanced and it appeared to have looped to enter into wedge position. Wedge pressures were obtained but it was noted that it was similar as right atrial pressures. Therefore the conclusion was made that the catheter was looping in the right atrium. At this time we terminated the procedure and removed the Lansing-Aditi catheter. Using ultrasound right common femoral vein was identified. 10 mL 2% lidocaine was infiltrated over the common femoral vein. Under ultrasound guidance and using a micropuncture needle, right common femoral access was obtained. Once the access was obtained, the needle was exchanged for a micro sheath over the wire using modified Seldinger technique. The micro sheath was exchanged for a 6 Filipino slender glide sheath. A 5 Filipino balloontipped transvenous pacemaker catheter was advanced through the venous sheath under fluoroscopy guidance. Once the catheter tip was in IVC, the tip balloon was inflated. The catheter was advanced under fluoroscopy guidance to cross the tricuspid valve and was positioned at the right ventricular apex. Once securing the catheter tip in the apex, the repeat catheter was connected to the external pacemaker and we confirmed the RV pacer capturing. The pacemaker was set at 50 bpm and pacing amplitude 8 mA The venous sheath was secured via suture. The length of the pacemaker wire was marked with a Steri-Strip. Patient did not encounter any complications. Estimated blood loss: Less than 10 mL Assessment Sick sinus syndrome with severe bradycardia with leading to hemodynamic compromise Sinus pauses of 5 to 6 seconds. Slow junctional escape rhythm Altered mental status Plan I feel that patient is a poor candidate for a permanent pacemaker eventually because of her multiple comorbidities, frequent hospitalizations, sepsis and pneumonia. At this time we will continue the hemodynamic support with temporary pacemaker set at 10 mAmp, pacing rate of 40 bpm Recommend ICU support Patient was hypotensive throughout the procedure requiring maxed norepinephrine and dopamine drip. MAP of 60 mmHg was maintained. Patient received 300 mcg of Ronnell-Synephrine. Patient has also been hypoxic with SpO2 of 80s. Patient is encephalopathy. Dr. Nix was updated about the patient. Transferred to ICU, plan for intubation once the patient is reached ICU. Obtain ABGs Dr Pedrito Steward MD, [facility], [place] Thank you for allowing [facility] team to participate in this patient's care. Please feel free to contact me in case of any follow-up questions.
--- NOTE | 2023-10-27 18:22 | P.CRDCN ---
History of Present Illness Consult date: 10/27/23 History of present illness: HISTORY OF PRESENTING ILLNESS Patient is a 68-year-old female with multiple comorbidities. She has history of CKD stage IV, type 2 diabetes, morbid obesity, paroxysmal atrial fibrillation. She is known to Dr. Milligan. in July 2023 patient was at [facility] where she had a complicated and long hospital stay. She had acute hypoxic respiratory failure with pneumonia requiring intubation and mechanical ventilatory support. During her hospital stay she also had an episode of atrial flutter. This time she was presented to the hospital from the [facility] because she was found to be confused, had mottled bilateral lower extremity, difficulty in breathing. On admission she was noticed to be in significant b radycardia. Admission ECG showed sinus bradycardia with prolonged AK interval. Rhythm strips showed 6-second pauses which were repetitive. REVIEW OF SYSTEMS 14 point review of system is negative except what is mentioned above in HPI. PHYSICAL EXAMINATION Morbidly obese Lungs: Poor inspiratory effort, diminished breath sounds, diffuse crackles and rhonchi audible Heart: Regular pulses, bradycardia, no significant murmurs appreciated Abdomen: Morbidly obese, abdomen is distended, hyperactive bowel sounds Extremities: 1-2+ pitting edema bilateral lower extremity, mottled extremities. Neuro: Patient is awake but confused. Oriented x 0 ASSESSMENT Severe bradycardia with sick sinus syndrome and 6-second pauses, with slow junctional escape beats Acute metabolic encephalopathy Acute hypoxic respiratory failure Shock state requiring pressor support. Rule out sepsis. Paroxysmal atrial fibrillation Morbid obesity Type 2 diabetes Hypertension Dyslipidemia Cardiac testing Echo shows EF 55%, no obvious wall motion abnormality, moderate RV dilatation, TSH is 2.7, troponin negative, BNP 2800 PLAN Patient does have prior AV nuris disease because of longer interval. But I feel patient's sick sinus syndrome and sinus bradycardia could be related to uncontrolled and untreated sleep apnea. She was having bradycardic episodes when she was sleeping but would get out of bradycardia when awake. Patient was encephalopathic and drowsy during evaluation which kind of worsened her bradycardia. Her potassium was borderline low. Plan for TVP Transfer to ICU Continue supportive care Continue norepinephrine. Use vasopressin if needed. Plan for intubation of the patient due to metabolic encephalopathy, acute hypoxia Consider ruling out possibility of CVA Obtain limited echocardiogram Keep potassium at 4, magnesium at 2. Monitor renal function, monitor urine output. Order lactate, blood cultures, Holding anticoagulation until rule out any concerns of stroke. Reason for anticoagulation is atrial fibrillation. Continue VTE prophylaxis Overall patient has poor prognosis. I explained this in detail to the patient's sister who was present at the bedside. She would like to continue with maximum care at this time until patient's daughter is back to visit her from [place]. I explained to her that she will be a poor candidate for a permanent pacemaker eventually because of her multiple comorbidities at least at this time. Pedrito Steward MD, FACC, RPVI Thank you for allowing [facility] to participate in this patient's care. Feel free to reach out in case of any followup questions. Past Medical History Past Medical History: Diabetes Mellitus, Eye Disorder, Hyperlipidemia, Hypertension, Renal Disease, Skin Disorder, Thyroid Disorder Additional Past Medical History / Comment(s): Left shoulder and right hip pain. Kidney Disease - Stage 4-no dialysis,has good urine production.scattered raised lumps-Unknown name of skin disorder. left eye cataract, possible Covid infection Resp 2020-was in respiratory distress in ICU for 1 week History of Any Multi-Drug Resistant Organisms: None Reported Past Surgical History: Section, Tonsillectomy Additional Past Surgical History / Comment(s): "Female surgery, can't remember name of surgery.",left cataract removed,rt eye procedure,failed fistula creation left upper arm procedure 08-11-22 Past Anesthesia/Blood Transfusion Reactions: Previous Problems w/ Anesthesia Additional Past Anesthesia/Blood Transfusion Reaction / Comment(s): Difficulty urinating after one surgery. no hx blood transfusion Past Psychological History: Depression Smoking Status: Former smoker Past Alcohol Use History: Unable to Obtain Past Drug Use History: Unable to Obtain - Past Family History Mother Family Medical History: No Reported History Sister(s) Family Medical History: Cancer Additional Family Medical History / Comment(s): uterine CA Medications and Allergies Home Medications Medication Instructions Recorded Confirmed Type Dialyvite 1 tab PO DAILY 08/09/22 10/27/23 History Ergocalciferol [Vitamin D2 (1250 1,250 mcg PO WE 08/09/22 10/27/23 History Mcg = 84645 Iu)] Ferrous Sulfate [Iron] 325 mg PO BID 08/09/22 10/27/23 History Acetaminophen Tab [Tylenol] 650 mg PO Q6H PRN 10/27/23 10/27/23 History Apixaban [Eliquis] 5 mg PO BID 10/27/23 10/27/23 History Atorvastatin [Lipitor] 10 mg PO DAILY 10/27/23 10/27/23 History Atorvastatin [Lipitor] 20 mg PO HS 10/27/23 10/27/23 History Budesonide [Pulmicort] 0.5 mg INHALATION RT-BID 10/27/23 10/27/23 History Bumetanide [Bumex] 1 mg PO DAILY 10/27/23 10/27/23 History Bumetanide [Bumex] 1 mg PO Q48H 10/27/23 10/27/23 History Dulaglutide [Trulicity] 0.75 mg SQ FR 10/27/23 10/27/23 History Famotidine [Pepcid] 10 mg PO DAILY 10/27/23 10/27/23 History Insulin Glargine [Lantus Vial] 10 unit SQ DAILY 10/27/23 10/27/23 History Insulin Lispro [Admelog Solostar] 2 units SQ DAILY@1100 10/27/23 10/27/23 History Insulin Lispro [Admelog Solostar] See Protocol SQ ACHS 10/27/23 10/27/23 History Ipratropium-Albuterol Nebulize 3 ml INHALATION RT-BID 10/27/23 10/27/23 History [Duoneb 0.5 mg-3 mg/3 ml Soln] L.acidoph,Paracasei, B.lactis 1 cap PO DAILY 10/27/23 10/27/23 History [Probiotic] Levothyroxine Sodium [Synthroid] 175 mcg PO DAILY 10/27/23 10/27/23 History Metoprolol Tartrate [Lopressor] 25 mg PO DAILY 10/27/23 10/27/23 History Potassium Chloride ER [K-Dur 20] 20 meq PO Q48H 10/27/23 10/27/23 History Thiamine [Vitamin B-1] 100 mg PO DAILY 10/27/23 10/27/23 History amLODIPine [Norvasc] 10 mg PO DAILY 10/27/23 10/27/23 History sitaGLIPtin [Januvia] 50 mg PO DAILY 10/27/23 10/27/23 History Allergies Allergy/AdvReac Type Severity Reaction Status Date / Time No Known Allergies Allergy Verified 10/27/23 13:37 Physical Exam Vitals: Vital Signs Temp Pulse Resp BP Pulse Ox FiO2 10/27/23 18:02 100 10/27/23 16:35 61 20 94/54 92 L 10/27/23 16:00 67 20 74/33 91 L 10/27/23 15:30 64 20 79/39 92 L 10/27/23 14:58 63 20 78/39 94 L 10/27/23 14:31 71 22 88/51 96 10/27/23 13:45 20 L 20 10/27/23 13:18 53 L 16 116/95 99 10/27/23 13:15 97.1 F L Intake and Output 10/27/23 10/27/23 10/27/23 06:59 14:59 22:59 Intake Total 14.033 0.660 Balance 14.033 0.660 Intake: Intake, IV Titration 14.033 0.660 Amount DOPamine DRIP 800 mg In 14.033 Dextrose/Water 1 250ml. bag @ 5 MCG/KG/MIN 12.757 mls/hr IV .[id number] [facility] Rx#:[id number] Norepinephrine 32 mg In 0.660 Sodium Chloride 0.9% 218 ml @ 0.03 MCG/KG/MIN 1. 914 mls/hr IV .Q24H ONE Rx#:[id number] Other: Weight 136.078 kg Results 10/27/23 13:59 10/27/23 13:59 Cardiac Enzymes 10/27/23 10/27/23 Range/Units 13:59 13:59 AST 30 (14-36) U/L Troponin I <0.012 (0.000-0.034) ng/mL Coagulation 10/27/23 Range/Units 13:59 PT 11.0 (10.0-12.5) sec APTT 35.2 H (22.0-30.0) sec CBC 10/27/23 Range/Units 13:59 WBC 5.4 (3.8-10.6) k/uL RBC 3.78 L (3.80-5.40) m/uL Hgb 11.2 L (11.4-16.0) gm/dL Hct 34.3 (34.0-46.0) % Plt Count 167 (150-450) k/uL Comprehensive Metabolic Panel 10/27/23 Range/Units 13:59 Sodium 132 L (137-145) mmol/L Potassium 5.4 H (3.5-5.1) mmol/L Chloride 105 (98-107) mmol/L Carbon Dioxide 20 L (22-30) mmol/L BUN 46 H (7-17) mg/dL Creatinine 2.40 H (0.52-1.04) mg/dL Glucose 88 (74-99) mg/dL Calcium 9.4 (8.4-10.2) mg/dL AST 30 (14-36) U/L ALT 22 (4-34) U/L Alkaline Phosphatase 128 H (38-126) U/L Total Protein 6.6 (6.3-8.2) g/dL Albumin 3.3 L (3.5-5.0) g/dL Current Medications Generic Name Dose Route Start Last Admin Trade Name Freq PRN Reason Stop Dose Admin Acetaminophen 650 mg 10/27/23 16:12 Acetaminophen Tab 325 Mg Tab PO Q6H PRN Pain Albuterol/Ipratropium 3 ml 10/27/23 20:00 Ipratropium-Albuterol 3 Ml Neb INHALATION RT-BID [facility] Atorvastatin Calcium 10 mg 10/28/23 09:00 Atorvastatin 10 Mg Tab PO DAILY MERRY Atorvastatin Calcium 20 mg 10/27/23 21:00 Atorvastatin 20 Mg Tab PO HS [facility] Budesonide 0.5 mg 10/27/23 20:00 Budesonide 0.5 Mg/2 Ml Nebu INHALATION RT-BID [facility] Chlorhexidine Gluconate 15 ml 10/27/23 21:00 Chlorhexidine Gluconate 15 Ml Cup MUCOUS MEM BID MERRY Ergocalciferol 1,250 mcg 10/31/23 16:12 Ergocalciferol 1,250 Mcg (50,000 Iu) Capsule PO WE MERRY Ferrous Sulfate 325 mg 10/27/23 21:00 Ferrous Sulfate 325 Mg Tab PO BID MERRY Dopamine HCl/Dextrose 800 mg/ 250 mls @ 12.757 mls/hr 10/27/23 14:00 10/27/23 14:35 IV Solution IV 20 mcg/kg/min .[id number] MERRY 51.029 mls/hr Infusion 5 MCG/KG/MIN Norepinephrine Bitartrate 32 250 mls @ 1.914 mls/hr 10/27/23 15:19 10/27/23 16:05 mg/ Sodium Chloride IV 10/28/23 15:18 0.2 mcg/kg/min .Q24H ONE 12.757 mls/hr Titration Protocol 0.03 MCG/KG/MIN Sodium Chloride 1,000 mls @ 20 mls/hr 10/27/23 16:15 Saline 0.9% IV .Q24H MERRY Vasopressin 60 unit/ Sodium 153 mls @ 4.59 mls/hr 10/27/23 18:00 Chloride IV .Q24H [facility]Y Protocol 0.03 UNITS/MIN Propofol 1,000 mg/ IV Solution 100 mls @ 12.247 mls/hr 10/27/23 18:15 IV .[id number] MERRY Protocol 15 MCG/KG/MIN Levothyroxine Sodium 176 mcg 10/28/23 09:00 Levothyroxine 88 Mcg Tab PO DAILY M[facility]Y Naloxone HCl 0.2 mg 10/27/23 16:10 Naloxone 0.4 Mg/Ml 1 Ml Vial IV Q2M PRN Opioid Reversal Pantoprazole Sodium 40 mg 10/28/23 09:00 Pantoprazole 40 Mg/10 Ml Vial IV DAILY MERRY Thiamine HCl 100 mg 10/28/23 09:00 Thiamine 100 Mg Tab PO DAILY MERRY Intake and Output 10/27/23 10/27/23 10/27/23 06:59 14:59 22:59 Intake Total 14.033 0.660 Balance 14.033 0.660 Intake: Intake, IV Titration 14.033 0.660 Amount DOPamine DRIP 800 mg In 14.033 Dextrose/Water 1 250ml. bag @ 5 MCG/KG/MIN 12.757 mls/hr IV .[id number] [facility] Rx#:[id number] Norepinephrine 32 mg In 0.660 Sodium Chloride 0.9% 218 ml @ 0.03 MCG/KG/MIN 1. 914 mls/hr IV .Q24H [facility] Rx#:[id number] Other: Weight 136.078 kg Patient Weight 10/28/23 06:59 Weight 136.078 kg 10/27/23 13:59 10/27/23 13:59
[2023-10-27 18:25] LABS: Glucose,Whole Blood 168 mg/dL (70-110)
[2023-10-27] MEDS: VASOPRESSIN 60 UNIT in SODIUM CHLORIDE 0.9% 150 ML IV SCH (18:25)
[2023-10-27] MEDS: propofoL 100 ML IV ONE (18:27)
[2023-10-27] MEDS: SODIUM CHLORIDE 0.9% 1,000 ML IV SCH (18:29)
[2023-10-27 19:15] LABS: Anisocytosis Slight; Basophils % (A) 0 %; Eosinophils # (A) 0.1 k/uL (0-0.7); Eosinophils % (A) 0 %; HCT 38.6 % (34.0-46.0); HGB 12.1 gm/dL (11.4-16.0); Hypochromasia Marked; Lymphocytes # (A) 0.5 k/uL (1.0-4.8); Lymphocytes % (A) 4 %; MCH 29.1 pg (25.0-35.0); MCHC 31.4 g/dL (31.0-37.0); MCV 92.8 fL (80.0-100.0); Mean Platelet Volume 7.9; Monocytes # (A) 0.5 k/uL (0-1.0); Monocytes % (A) 4 %; Neutrophils # (A) 12.8 k/uL (1.3-7.7); Neutrophils % (A) 92 %; Platelet Count 166 k/uL (150-450); RBC 4.16 m/uL (3.80-5.40); RDW 16.7 % (11.5-15.5)
--- NOTE | 2023-10-27 19:17 | XR ---
EXAMINATION TYPE: XR chest 1V portable DATE OF EXAM: 10/27/2023 Comparison: 10/27/2023 Clinical History: 68-year-old female Tube placement Findings: ET tube tip 3.2 cm from the milad. NG tube courses below the diaphragm. There may be a right ventric ular pacer lead coming up from the IVC. Right IJ CVC tip at the lower SVC. There is patchy right basi lar opacity. Overall interstitial is improving from prior. Heart remains moderately enlarged. Impression: Persistent but improving pulmonary edema. Satisfactory ET and NG tubes.
[2023-10-27 19:25] LABS: ABG Base Excess -7.3 mmol/L; ABG HCO3 20 mmol/L (21-25); ABG Oxygen Saturation 100.1 % (94-97); ABG PCO2 48 mmHg (35-45); ABG PH 7.23 (7.35-7.45); ABG PO2 262 mmHg (83-108); ABG TCO2 22 mmol/L (19-24); Allen Test Performed? Yes
[2023-10-27] MEDS: BUDESONIDE 0.5 MG/2 ML NEBU INHALATION SCH (19:37)
[2023-10-27] MEDS: IPRATROPIUM-ALBUTEROL 3 ML NEB INHALATION SCH (19:37)
[2023-10-27 19:38] LABS: ALT 27 U/L (4-34); AST 36 U/L (14-36); African American GFR (CKD) 24 (>60 ml/min/1.73 sqM); Albumin 3.7 g/dL (3.5-5.0); Alkaline Phosphatase 159 U/L (38-126); Anion Gap 10 mmol/L; Blood Urea Nitrogen 45 mg/dL (7-17); Calcium 9.1 mg/dL (8.4-10.2); Carbon Dioxide 18 mmol/L (22-30); Chloride 102 mmol/L (98-107); Glucose 276 mg/dL (74-99); Magnesium 2.4 mg/dL (1.6-2.3); Non-African American GFR(CKD) 21 (>60 ml/min/1.73 sqM); Potassium 4.9 mmol/L (3.5-5.1); Sodium 130 mmol/L (137-145); Total Protein 7.4 g/dL (6.3-8.2)
[2023-10-27] MEDS: FERROUS SULFATE 325 MG TAB PO SCH (21:14)
[2023-10-27] MEDS: ATORVASTATIN 20 MG TAB PO SCH (21:16)
[2023-10-27] MEDS: CHLORHEXIDINE GLUCONATE 15 ML CUP MUCOUS MEM SCH (21:16)
[2023-10-27] MEDS ORDERED: VANCOMYCIN IV PER PHARMACY 1 EACH MISC MISCELLANE PRN (23:11)
[2023-10-27] MEDS: PIPERACILLIN-TAZOBACTAM 3.375 GM in SODIUM CHLORIDE 0.9% 100 ML IVPB SCH (23:51)
[2023-10-28 00:40] LABS: Glucose,Whole Blood 361 mg/dL (70-110)
[2023-10-28 00:40] LABS: Glucose,Whole Blood 331 mg/dL (70-110)
[2023-10-28 01:01] LABS: Magnesium 2.2 mg/dL (1.6-2.3); Potassium 4.7 mmol/L (3.5-5.1)
[2023-10-28] MEDS: VANCOMYCIN 2,000 MG in SODIUM CHLORIDE 0.9% 500 ML 500 ML IVPB ONE ×2 (01:45→21:22)
[2023-10-28 05:09] LABS: Glucose,Whole Blood 254 mg/dL (70-110)
[2023-10-28 05:42] LABS: ALT 20 U/L (4-34); AST 29 U/L (14-36); African American GFR (CKD) 22 (>60 ml/min/1.73 sqM); Alkaline Phosphatase 131 U/L (38-126); Anion Gap 10 mmol/L; Blood Urea Nitrogen 47 mg/dL (7-17); Calcium 8.5 mg/dL (8.4-10.2); Carbon Dioxide 15 mmol/L (22-30); Chloride 105 mmol/L (98-107); Glucose 246 mg/dL (74-99); Non-African American GFR(CKD) 19 (>60 ml/min/1.73 sqM); Potassium 4.9 mmol/L (3.5-5.1); Sodium 130 mmol/L (137-145); Total Bilirubin 0.6 mg/dL (0.2-1.3)
[2023-10-28 05:44] LABS: ABG Base Excess -8.8 mmol/L; ABG HCO3 18 mmol/L (21-25); ABG Oxygen Saturation 89.8 % (94-97); ABG PCO2 41 mmHg (35-45); ABG PH 7.25 (7.35-7.45); ABG TCO2 19 mmol/L (19-24); Allen Test Performed? Yes
[2023-10-28 05:47] LABS: ABG PO2 59 mmHg (83-108)
[2023-10-28 05:57] LABS: Anisocytosis Slight; Basophils % (A) 0 %; Eosinophils % (A) 0 %; HCT 35.1 % (34.0-46.0); Hypochromasia Marked; Lymphocytes # (A) 0.2 k/uL (1.0-4.8); Lymphocytes % (A) 1 %; MCH 29.4 pg (25.0-35.0); MCHC 31.5 g/dL (31.0-37.0); MCV 93.5 fL (80.0-100.0); Mean Platelet Volume 7.7; Monocytes # (A) 0.8 k/uL (0-1.0); Monocytes % (A) 5 %; Neutrophils # (A) 15.1 k/uL (1.3-7.7); Neutrophils % (A) 93 %; Platelet Count 162 k/uL (150-450); RBC 3.75 m/uL (3.80-5.40); RDW 16.5 % (11.5-15.5); WBC 16.2 k/uL (3.8-10.6)
[2023-10-28] MEDS ORDERED: DEXTROSE 50% SYRINGE 50 ML IVP PRN ×2 (07:07)
[2023-10-28] MEDS: SODIUM BICARB 8.4% 50 ML SYR (1 MEQ/ML) IV STA (08:14)
[2023-10-28] MEDS: ATORVASTATIN 10 MG TAB PO SCH (08:15)
[2023-10-28] MEDS: THIAMINE 100 MG TAB PO SCH (08:15)
[2023-10-28] MEDS: PANTOPRAZOLE 40 MG/10 ML VIAL IV SCH (08:15)
[2023-10-28] MEDS: LEVOTHYROXINE 88 MCG TAB PO SCH (08:26)
[2023-10-28] MEDS: FERROUS SULFATE ORAL ELIXIR 300 MG/5 ML CUP OG-TUBE SCH (08:26)
[2023-10-28 08:35] LABS: Glucose,Whole Blood 168 mg/dL (70-110)
[2023-10-28] MEDS: INSULIN ASPART (NovoLOG) 100 UNIT/ML VIAL SQ SCH (08:36)
--- NOTE | 2023-10-28 09:47 | P.CNPUL ---
History of Present Illness Consult date: 10/28/23 Requesting physician: Danny Green Reason for consult: other (ICU management) Chief complaint: Altered mental status and shortness of breath History of present illness: This is a 68-year-old female with history of chronic kidney disease stage IV, morbid obesity, paroxysmal atrial fibrillation, type 2 diabetes, patient was admitted last to [facility] in July of 2023 with acute hypoxic respiratory failure secondary to pneumonia requiring intubation mechanical ventilation. [facility], and today the patient was noted to be confused by nursing staff. Also noted to have mottled bilateral lower extremities and was noted to be short of breath. Patient was brought into the ER, and she was noted to have bradycardia with prolonged RI interval she was also noted to have 6-second pauses intermittently. Seen by cardiology for what seems to be a sick sinus syndrome according to the note from the early childhood coordinator, patient had severe bradycardia with heart rate in the 20s and 30s and intermittent episodes of pauses. The patient was taken to the cardiac Electrical High Tension Tester, underwent temporary transvenous pacemaker placement using left femoral approach. Apparently she had attempted to have left IJ transvenous pacemaker, and that failed. In the cardiac catheterization lab having a pacemaker implantation, patient was noted to have significant hypotension requiring maximal therapy with norepinephrine and dopamine at 25 mcg/kg/min. Patient also received Ronnell-Synephrine, continues to have significant episodes of hypotension and worsening mental status/encephalopathy type picture. I was made aware of this patient while in the cardiac catheterization lab, discussed her condition with Dr. Steward, and recommended immediate intubation. Patient was sent to the ICU, and she was intubated in the intensive care unit. Patient has been intubated since yesterday, and she is presently on assist-control mode of mechanical ventilation, rate of 20, tidal volume was 400, FiO2 was 80% and PEEP of 5 ABG was reviewed, patient received bicarb IV push, I changed her tidal volume to 500 rate down to 16 increased her PEEP to 10 and decreased FiO2 to 70% ABG ending. Chest x-ray showed evidence of pulmonary edema and left lower lobe consolidation/atelectasis. Patient is on multiple drips including propofol at 45 mcg/kg/min she is on dopamine at 5 mcg/kg/min vasopressin at 0.03 units/min she is also on norepinephrine at 0.6 mcg/kg/min. Patient had no urine output since last night, nephrology has been consulted. Labs today showed bicarb 15 normal electrolytes BUN up to 47 creatinine 2.54 WBC count is 16.2 hemoglobin is 11 ABG showed a pO2 of 59 pCO2 [address] of the brain is pending, apparently the patient was not stable enough last night to go down for CT of the brain although was ordered and recommended Review of Systems ROS unobtainable: due to endotracheal tube Past Medical History Past Medical History: Diabetes Mellitus, Eye Disorder, Hyperlipidemia, Hypertension, Renal Disease, Skin Disorder, Thyroid Disorder Additional Past Medical History / Comment(s): Left shoulder and right hip pain. Kidney Disease - Stage 4-no dialysis,has good urine production.scattered raised lumps-Unknown name of skin disorder. bilateral eye cataract, possible Covid infection Resp 2020-was in respiratory distress in ICU for 1 week History of Any Multi-Drug Resistant Organisms: None Reported Past Surgical History: Section, Hysterectomy, Tonsillectomy Additional Past Surgical History / Comment(s): "Female surgery, can't remember name of surgery.",left cataract removed,rt eye procedure,failed fistula creation left upper arm procedure 08-11-22 Past Anesthesia/Blood Transfusion Reactions: Previous Problems w/ Anesthesia Additional Past Anesthesia/Blood Transfusion Reaction / Comment(s): Difficulty urinating after one surgery. no hx blood transfusion Past Psychological History: Depression Additional Psychological History / Comment(s): Per sister Shweta pt. stopped taking care of her self, started isolating herself, and stated "she is going to soon". Smoking Status: Former smoker Past Alcohol Use History: Unable to Obtain Additional Past Alcohol Use History / Comment(s): Quit smoking 2019 smoked for 50 yrs. Past Drug Use History: Unable to Obtain - Past Family History Mother Family Medical History: Cancer Additional Family Medical History / Comment(s): Breast CA Sister(s) Family Medical History: Asthma, Cancer Additional Family Medical History / Comment(s): uterine CA, from asthma attack. Father Family Medical History: Liver Disease Additional Family Medical History / Comment(s): Alcoholism Medications and Allergies Home Medications Medication Instructions Recorded Confirmed Type Dialyvite 1 tab PO DAILY 08/09/22 10/27/23 History Ergocalciferol [Vitamin D2 (1250 1,250 mcg PO WE 08/09/22 10/27/23 History Mcg = 23180 Iu)] Ferrous Sulfate [Iron] 325 mg PO BID 08/09/22 10/27/23 History Acetaminophen Tab [Tylenol] 650 mg PO Q6H PRN 10/27/23 10/27/23 History Apixaban [Eliquis] 5 mg PO BID 10/27/23 10/27/23 History Atorvastatin [Lipitor] 10 mg PO DAILY 10/27/23 10/27/23 History Atorvastatin [Lipitor] 20 mg PO HS 10/27/23 10/27/23 History Budesonide [Pulmicort] 0.5 mg INHALATION RT-BID 10/27/23 10/27/23 History Bumetanide [Bumex] 1 mg PO DAILY 10/27/23 10/27/23 History Bumetanide [Bumex] 1 mg PO Q48H 10/27/23 10/27/23 History Dulaglutide [Trulicity] 0.75 mg SQ FR 10/27/23 10/27/23 History Famotidine [Pepcid] 10 mg PO DAILY 10/27/23 10/27/23 History Insulin Glargine [Lantus Vial] 10 unit SQ DAILY 10/27/23 10/27/23 History Insulin Lispro [Admelog Solostar] 2 units SQ DAILY@1100 10/27/23 10/27/23 History Insulin Lispro [Admelog Solostar] See Protocol SQ ACHS 10/27/23 10/27/23 History Ipratropium-Albuterol Nebulize 3 ml INHALATION RT-BID 10/27/23 10/27/23 History [Duoneb 0.5 mg-3 mg/3 ml Soln] L.acidoph,Paracasei, B.lactis 1 cap PO DAILY 10/27/23 10/27/23 History [Probiotic] Levothyroxine Sodium [Synthroid] 175 mcg PO DAILY 10/27/23 10/27/23 History Metoprolol Tartrate [Lopressor] 25 mg PO DAILY 10/27/23 10/27/23 History Potassium Chloride ER [K-Dur 20] 20 meq PO Q48H 10/27/23 10/27/23 History Thiamine [Vitamin B-1] 100 mg PO DAILY 10/27/23 10/27/23 History amLODIPine [Norvasc] 10 mg PO DAILY 10/27/23 10/27/23 History sitaGLIPtin [Januvia] 50 mg PO DAILY 10/27/23 10/27/23 History Allergies Allergy/AdvReac Type Severity Reaction Status Date / Time No Known Allergies Allergy Verified 10/27/23 13:37 Physical Exam Vitals: Vital Signs Temp Pulse Resp BP Pulse Ox FiO2 10/28/23 09:00 80 23 98 10/28/23 08:45 80 18 98 10/28/23 08:30 81 22 98 10/28/23 08:15 80 22 96 10/28/23 08:00 98.4 F 65 18 96 70 10/28/23 07:52 95 70 10/28/23 07:51 65 10/28/23 07:47 70 10/28/23 07:46 70 10/28/23 07:45 64 33 H 95 10/28/23 07:39 64 10/28/23 07:30 64 17 95 10/28/23 07:15 65 16 95 10/28/23 07:00 66 21 95 10/28/23 06:45 67 18 94 L 10/28/23 06:30 70 24 94 L 10/28/23 06:15 65 18 94 L 10/28/23 06:07 80 10/28/23 06:00 98.6 F 76 20 95 80 10/28/23 05:45 80 20 91 L 10/28/23 05:30 85 20 92 L 10/28/23 05:15 87 20 98 10/28/23 05:00 87 20 94 L 10/28/23 04:45 88 21 95 10/28/23 04:30 96 23 95 10/28/23 04:15 89 24 95 10/28/23 04:01 50 10/28/23 04:00 97.5 F L 88 20 94 L 50 10/28/23 03:45 87 21 94 L 10/28/23 03:30 92 20 95 10/28/23 03:15 89 21 95 10/28/23 03:00 90 20 95 10/28/23 02:45 86 21 95 10/28/23 02:30 86 23 96 10/28/23 02:15 86 24 96 10/28/23 02:00 93 20 96 08/04/24 01:45 92 20 97 10/28/23 01:30 91 24 97 10/28/23 01:15 90 21 97 10/28/23 01:00 93 21 97 10/28/23 00:45 85 21 96 10/28/23 00:30 84 20 96 10/28/23 00:15 84 20 96 10/28/23 00:00 93.2 F L 85 20 97 50 10/27/23 23:45 84 20 97 10/27/23 23:41 82 20 97 10/27/23 23:30 81 20 98 10/27/23 23:15 85 21 98 10/27/23 23:00 90.4 F L 80 24 118/44 98 10/27/23 22:45 82 20 98 10/27/23 22:30 88 24 97 10/27/23 22:15 84 16 99 10/27/23 22:00 85 16 99 10/27/23 21:45 83 16 99 10/27/23 21:30 81 16 99 10/27/23 21:15 84 18 99 10/27/23 21:00 82 21 99 50 10/27/23 20:45 81 16 10/27/23 20:30 82 16 118/44 10/27/23 20:15 80 17 50 10/27/23 20:00 80 16 100 10/27/23 19:47 80 16 10/27/23 19:45 81 16 10/27/23 19:43 50 10/27/23 19:38 81 16 10/27/23 19:30 82 17 95/59 10/27/23 19:15 6 L 95/59 10/27/23 19:05 83 16 10/27/23 19:00 84 16 95/59 10/27/23 18:55 84 16 10/27/23 18:50 84 16 10/27/23 18:45 84 16 10/27/23 18:40 82 16 102/43 100 10/27/23 18:35 81 16 76/47 10/27/23 18:34 100 10/27/23 18:31 100 10/27/23 18:30 91.0 F L 79 13 72/46 10/27/23 16:35 61 20 94/54 92 L 10/27/23 16:00 67 20 74/33 91 L 10/27/23 15:30 64 20 79/39 92 L 10/27/23 14:58 63 20 78/39 94 L 10/27/23 14:31 71 22 88/51 96 10/27/23 13:45 20 L 20 10/27/23 13:18 53 L 16 116/95 99 10/27/23 13:15 97.1 F L Intake and Output 10/27/23 10/28/23 10/28/23 22:59 06:59 14:59 Intake Total 943.964 6287.404 384.929 Output Total 215 62 35 Balance 801.978 2890.404 349.929 Intake: IV 179 944 129 0.9 ART Line 9 24 9 0.9 Sheath 60 160 60 Piperacillin-Tazobactam 3 100 .375 gm In Sodium Chloride 0.9% 100 ml @ 25 mls/hr IVPB Q12H [facility] Rx# :[id number] Sodium Chloride 0.9% 1, 60 160 60 000 ml @ 20 mls/hr IV . Q24H [facility] Rx#:[id number] Vancomycin 2,000 mg In 500 Sodium Chloride 0.9% 500 ml 500 ml @ 167 mls/hr IVPB [facility] Rx#: [id number] Intake, IV Titration 650.981 914.404 255.929 Amount DOPamine DRIP 800 mg In 419.141 391.074 Dextrose/Water 1 250ml. bag @ 5 MCG/KG/MIN 12.757 mls/hr IV .[id number] [facility] Rx#:[id number] Norepinephrine 32 mg In 155.023 197.101 210.496 Sodium Chloride 0.9% 218 ml @ 0.03 MCG/KG/MIN 1. 914 mls/hr IV .Q24H [facility] Rx#:[id number] propofoL 1,000 mg In 76.817 326.229 45.433 Empty Bag 1 bag @ 15 MCG/ KG/MIN 12.247 mls/hr IV . Q8H10M [facility] Rx#:[id number] Output: Urine 215 62 35 Other: Voiding Method Indwelling Catheter Indwelling Catheter Indwelling Catheter Weight 136.078 kg 126.8 kg ABP, PAP, CO, CI - Last 8 Hours Arterial Blood Pressure 115/43 Arterial Blood Pressure 119/44 Arterial Blood Pressure 114/43 Arterial Blood Pressure 106/39 Arterial Blood Pressure 110/40 Arterial Blood Pressure 112/41 Arterial Blood Pressure 108/41 Arterial Blood Pressure 111/42 Arterial Blood Pressure 113/42 Arterial Blood Pressure 114/48 Arterial Blood Pressure 112/50 Arterial Blood Pressure 109/47 Arterial Blood Pressure 114/50 Arterial Blood Pressure 115/50 Arterial Blood Pressure 115/52 Arterial Blood Pressure 115/51 Arterial Blood Pressure 116/51 Arterial Blood Pressure 118/52 Arterial Blood Pressure 120/54 Arterial Blood Pressure 120/53 Arterial Blood Pressure 131/64 Arterial Blood Pressure 123/56 Arterial Blood Pressure 123/57 Arterial Blood Pressure 126/57 Arterial Blood Pressure 125/57 Arterial Blood Pressure 124/57 Arterial Blood Pressure 125/57 Arterial Blood Pressure 126/58 Arterial Blood Pressure 128/58 Arterial Blood Pressure 125/59 Arterial Blood Pressure 128/60 General: Revealed a 68-year-old female morbidly obese intubated, mechanically ventilated, on propofol, unresponsive to any stimuli including deep painful stimuli, pupils are reactive. Head:Atraumatic, normocephalic HEENT: PERRLA, nonicteric, no neck masses, patient has a short obese neck, right IJ central line is noted, left IJ Cordis is also noted. Endotracheal tube and orogastric tube are intact. Chest: Diminished breath sound bilaterally no crackles rhonchi or wheezes Cardiac: Distant S1-S2, no S3 gallop. No murmur. Abdomen: Obese soft nontender no megaly no rebound no guarding Extremities: Right lower extremity is wrapped with a sterile dressing however she has chronic nonhealing ulcer on the dorsal aspect of the right lower extremity above the ankle apparently had significant purulent drainage noted yesterday, I was able to review the pictures of the ulcer. In addition the patient has diminished distal pulses with some bluish discoloration of the tips of her toes bilaterally both feet are warm, not cold to touch Neurologic:: Could not assess. Patient is sedated, presently on responsive to any stimuli including the painful stimuli. However according to the nurse off propofol the patient was noted to be restless and agitated and not synchronous with the ventilator Psychiatric: Could not assess. Skin: Nonhealing ulcer right lower extremity as noted above. And bluish discoloration of the tips of the toes bilaterally but warm feet noted. And diminished distal pulses Results - Laboratory Findings CBC and BMP: 10/28/23 05:10 10/28/23 05:10 ABG ABG pH 7.25 (7.35-7.45) L 10/28/23 05:42 ABG pCO2 41 mmHg (35-45) 10/28/23 05:42 ABG pO2 59 mmHg (83-108) L* 10/28/23 05:42 ABG O2 Saturation 89.8 % (94-97) L 10/28/23 05:42 PT/INR, D-dimer PT 11.0 sec (10.0-12.5) 10/27/23 13:59 INR 1.0 (<1.2) 10/27/23 13:59 Abnormal lab findings: Abnormal Labs 10/27/23 10/27/23 10/27/23 13:59 13:59 13:59 WBC RBC 3.78 L Hgb 11.2 L RDW 16.8 H Neutrophils # Lymphocytes # 0.6 L APTT 35.2 H ABG pH ABG pCO2 ABG pO2 ABG HCO3 ABG O2 Saturation Sodium 132 L Potassium 5.4 H Carbon Dioxide 20 L BUN 46 H Creatinine 2.40 H Glucose POC Glucose (mg/dL) Phosphorus Magnesium 2.4 H Alkaline Phosphatase 128 H Total Protein Albumin 3.3 L Free T4 2.76 H Free T3 pg/mL 1.50 L 10/27/23 10/27/23 10/27/23 18:23 19:03 19:03 WBC 14.0 H RBC Hgb RDW 16.7 H Neutrophils # 12.8 H Lymphocytes # 0.5 L APTT ABG pH ABG pCO2 ABG pO2 ABG HCO3 ABG O2 Saturation Sodium 130 L Potassium Carbon Dioxide 18 L BUN 45 H Creatinine 2.37 H Glucose 276 H POC Glucose (mg/dL) 168 H Phosphorus 5.0 H Magnesium 2.4 H Alkaline Phosphatase 159 H Total Protein Albumin Free T4 Free T3 pg/mL 10/27/23 10/28/23 10/28/23 19:28 00:38 00:39 WBC RBC Hgb RDW Neutrophils # Lymphocytes # APTT ABG pH 7.23 L ABG pCO2 48 H ABG pO2 262 H ABG HCO3 20 L ABG O2 Saturation 100.1 H Sodium Potassium Carbon Dioxide BUN Creatinine Glucose POC Glucose (mg/dL) 331 H 361 H Phosphorus Magnesium Alkaline Phosphatase Total Protein Albumin Free T4 Free T3 pg/mL 10/28/23 10/28/23 10/28/23 05:08 05:10 05:10 WBC 16.2 H RBC 3.75 L Hgb 11.0 L RDW 16.5 H Neutrophils # 15.1 H Lymphocytes # 0.2 L APTT ABG pH ABG pCO2 ABG pO2 ABG HCO3 ABG O2 Saturation Sodium 130 L Potassium Carbon Dioxide 15 L BUN 47 H Creatinine 2.54 H Glucose 246 H POC Glucose (mg/dL) 254 H Phosphorus Magnesium Alkaline Phosphatase 131 H Total Protein 6.0 L Albumin 3.0 L Free T4 Free T3 pg/mL 10/28/23 10/28/23 05:42 08:34 WBC RBC Hgb RDW Neutrophils # Lymphocytes # APTT ABG pH 7.25 L ABG pCO2 ABG pO2 59 L* ABG HCO3 18 L ABG O2 Saturation 89.8 L Sodium Potassium Carbon Dioxide BUN Creatinine Glucose POC Glucose (mg/dL) 168 H Phosphorus Magnesium Alkaline Phosphatase Total Protein Albumin Free T4 Free T3 pg/mL - Diagnostic Findings Chest x-ray: image reviewed (As noted in HPI) Additional studies: CT of the brain is pending Assessment and Plan Assessment: Impression: Sick sinus syndrome requiring temporary transvenous pacemaker placement Cardiogenic shock with profound hypotension, sepsis and septic shock is not e ntirely ruled out, felt to be less likely nonetheless the patient will be covered empirically with antibiotics including vancomycin and Zosyn. Acute on chronic kidney injury/acute tubular necrosis secondary to profound hypotension while in the cardiac catheterization lab. Severe metabolic encephalopathy, possible anoxic brain injury, CT of the brain is pending neurologic consultation is pending. Possible CVA. Morbid obesity., BMI is 46.5 Type 2 diabetes Dyslipidemia Benign essential hypertension History of hypothyroidism Recent history of pneumonia back in July requiring intubation mechanical ventilation at [facility]. Right lower extremity cellulitis with possible sepsis and septic shock. Acute pulmonary edema and left lower lobe consolidation/atelectasis. Recommendation: Continue ventilatory support, patient is now on assist-control rate of 16 tidal volume 500 FiO2 70% and PEEP of 10 Continue hemodynamic support patient is requiring norepinephrine 0.6 mcg/kg/min vasopressin at 0.03 units/min and dopamine at 5 mcg/kg/min Continue GI and DVT prophylaxis patient may need to be on IV heparin however awaiting CT of the brain before heparin started. Continue antibiotics empirically, cultures are pending including blood cultures and right lower extremity wound culture. Patient is now on vancomycin and Zosyn Continue bronchodilators Nutritional support to be addressed later today and the patient will likely be placed on enteral feeding via orogastric tube. Arrange for CT of the brain today Consult neurology as the patient may have anoxic brain injury or could have CVA, rule out intracerebral bleed. Consult nephrology, patient developed acute tubular necrosis and acute kidney injury with oliguria, had less than 5 cc of urine overnight. Continue to monitor cardiac rhythm, patient has temporary transvenous pacemaker placed yesterday. Close monitoring of blood sugars and address accordingly with sliding scale coverage Close monitoring of daily labs and renal profile Daily x-rays of the chest Based on the echocardiogram and based on CT of the brain, further recommendations will follow. Patient is critically ill. Overall prognosis is extremely poor Critical care time is over 50 minutes Time with Patient: Greater than 30
--- NOTE | 2023-10-28 10:03 | P.CNNES ---
History of Present Illness Consult date: 10/28/23 Requesting physician: Parvez Nix Reason for Consult: fixed and dilated pupils History of Present Illness: This is a 68 year-old presented emergency department because of syncopal episode. History is obtained from medical record as well as the patient ICU nurse. It seems that the patient resides in a nursing facility and she had a syncopal episode there. There is questionable hypotension and patient did have 1 syncopal episode by EMS and was drowsy several times however blood pressure was obtained and was not hypotensive. On presentation patient heart rate was as low as 20. As a result the patient had a temporary venous pacemaker. And then after the procedure when she came to the ICU per the nurse her pupils were dilated fixed and nonreactive and she was not responding. Per the nurse overnight she was agitated and she was localizing pulling on the tubes and she was started on IV propofol. Patient is on 3 pressors because of hypotensive. Per the nurse neurologically the pupils is dilated today compared to yesterday. Seems that she is having nasal discharge. Able to obtain CT of the head since the patient is not stable per the ICU nurse Cardiology feels her overall prognosis is poor. Some of the workup during his hospital visit consisted of: ABG the pO2 yesterday was 262 and today is 59. CO2 is 4 8 and 3041. Patient has worsening of her baseline kidney insufficiency and her sugar is in t he 300s. Sodium is 130 Reviewed the rest of the lab work Review of Systems Limited but the positive and negative as per HPI. Past Medical History Past Medical History: Diabetes Mellitus, Eye Disorder, Hyperlipidemia, Hypertension, Renal Disease, Skin Disorder, Thyroid Disorder Additional Past Medical History / Comment(s): Left shoulder and right hip pain. Kidney Disease - Stage 4-no dialysis,has good urine production.scattered raised lumps-Unknown name of skin disorder. bilateral eye cataract, possible Covid infection Resp 2020-was in respiratory distress in ICU for 1 week History of Any Multi-Drug Resistant Organisms: None Reported Past Surgical History: Section, Hysterectomy, Tonsillectomy Additional Past Surgical History / Comment(s): "Female surgery, can't remember name of surgery.",left cataract removed,rt eye procedure,failed fistula creation left upper arm procedure 08-11-22 Past Anesthesia/Blood Transfusion Reactions: Previous Problems w/ Anesthesia Additional Past Anesthesia/Blood Transfusion Reaction / Comment(s): Difficulty urinating after one surgery. no hx blood transfusion Past Psychological History: Depression Additional Psychological History / Comment(s): Per sister Shweta pt. stopped taki ng care of her self, started isolating herself, and stated "she is going to soon". Smoking Status: Former smoker Past Alcohol Use History: Unable to Obtain Additional Past Alcohol Use History / Comment(s): Quit smoking 2020 smoked for 50 yrs. Past Drug Use History: Unable to Obtain - Past Family History Mother Family Medical History: Cancer Additional Family Medical History / Comment(s): Breast CA Sister(s) Family Medical History: Asthma, Cancer Additional Family Medical History / Comment(s): uterine CA, from asthma attack. Father Family Medical History: Liver Disease Additional Family Medical History / Comment(s): Alcoholism Medications and Allergies Home Medications Medication Instructions Recorded Confirmed Type Dialyvite 1 tab PO DAILY 08/09/22 10/27/23 History Ergocalciferol [Vitamin D2 (1250 1,250 mcg PO WE 08/09/22 10/27/23 History Mcg = 80642 Iu)] Ferrous Sulfate [Iron] 325 mg PO BID 08/09/22 10/27/23 History Acetaminophen Tab [Tylenol] 650 mg PO Q6H PRN 10/27/23 10/27/23 History Apixaban [Eliquis] 5 mg PO BID 10/27/23 10/27/23 History Atorvastatin [Lipitor] 10 mg PO DAILY 10/27/23 10/27/23 History Atorvastatin [Lipitor] 20 mg PO HS 10/27/23 10/27/23 History Budesonide [Pulmicort] 0.5 mg INHALATION RT-BID 10/27/23 10/27/23 History Bumetanide [Bumex] 1 mg PO DAILY 10/27/23 10/27/23 History Bumetanide [Bumex] 1 mg PO Q48H 10/27/23 10/27/23 History Dulaglutide [Trulicity] 0.75 mg SQ FR 10/27/23 10/27/23 History Famotidine [Pepcid] 10 mg PO DAILY 10/27/23 10/27/23 History Insulin Glargine [Lantus Vial] 10 unit SQ DAILY 10/27/23 10/27/23 History Insulin Lispro [Admelog Solostar] 2 units SQ DAILY@1100 10/27/23 10/27/23 History Insulin Lispro [Admelog Solostar] See Protocol SQ ACHS 10/27/23 10/27/23 History Ipratropium-Albuterol Nebulize 3 ml INHALATION RT-BID 10/27/23 10/27/23 History [Duoneb 0.5 mg-3 mg/3 ml Soln] L.acidoph,Paracasei, B.lactis 1 cap PO DAILY 10/27/23 10/27/23 History [Probiotic] Levothyroxine Sodium [Synthroid] 175 mcg PO DAILY 10/27/23 10/27/23 History Metoprolol Tartrate [Lopressor] 25 mg PO DAILY 10/27/23 10/27/23 History Potassium Chloride ER [K-Dur 20] 20 meq PO Q48H 10/27/23 10/27/23 History Thiamine [Vitamin B-1] 100 mg PO DAILY 10/27/23 10/27/23 History amLODIPine [Norvasc] 10 mg PO DAILY 10/27/23 10/27/23 History sitaGLIPtin [Januvia] 50 mg PO DAILY 10/27/23 10/27/23 History Allergies Allergy/AdvReac Type Severity Reaction Status Date / Time No Known Allergies Allergy Verified 10/27/23 13:37 Physical Examination - Vital Signs Vital Signs: Vital Signs Temp Pulse Resp BP Pulse Ox FiO2 10/28/23 09:00 80 23 98 10/28/23 08:45 80 18 98 10/28/23 08:30 81 22 98 10/28/23 08:15 80 22 96 10/28/23 08:00 98.4 F 65 18 96 70 10/28/23 07:52 95 70 10/28/23 07:51 65 10/28/23 07:47 70 10/28/23 07:46 70 10/28/23 07:45 64 33 H 95 10/28/23 07:39 64 10/28/23 07:30 64 17 95 10/28/23 07:15 65 16 95 10/28/23 07:00 66 21 95 10/28/23 06:45 67 18 94 L 10/28/23 06:30 70 24 94 L 10/28/23 06:15 65 18 94 L 10/28/23 06:07 80 10/28/23 06:00 98.6 F 76 20 95 80 10/28/23 05:45 80 20 91 L 10/28/23 05:30 85 20 92 L 10/28/23 05:15 87 20 98 10/28/23 05:00 87 20 94 L 10/28/23 04:45 88 21 95 10/28/23 04:30 96 23 95 10/28/23 04:15 89 24 95 10/28/23 04:01 50 10/28/23 04:00 97.5 F L 88 20 94 L 50 10/28/23 03:45 87 21 94 L 10/28/23 03:30 92 20 95 10/28/23 03:15 89 21 95 10/28/23 03:00 90 20 95 10/28/23 02:45 86 21 95 10/28/23 02:30 86 23 96 10/28/23 02:15 86 24 96 10/28/23 02:00 93 20 96 10/28/23 01:45 92 20 97 10/28/23 01:30 91 24 97 10/28/23 01:15 90 21 97 10/28/23 01:00 93 21 97 10/28/23 00:45 85 21 96 10/28/23 00:30 84 20 96 10/28/23 00:15 84 20 96 10/28/23 00:00 93.2 F L 85 20 97 50 10/27/23 23:45 84 20 97 10/27/23 23:41 82 20 97 10/27/23 23:30 81 20 98 10/27/23 23:15 85 21 98 10/27/23 23:00 90.4 F L 80 24 118/44 98 10/27/23 22:45 82 20 98 10/27/23 22:30 88 24 97 10/27/23 22:15 84 16 99 10/27/23 22:00 85 16 99 10/27/23 21:45 83 16 99 10/27/23 21:30 81 16 99 10/27/23 21:15 84 18 99 10/27/23 21:00 82 21 99 50 10/27/23 20:45 81 16 10/27/23 20:30 82 16 118/44 10/27/23 20:15 80 17 50 10/27/23 20:00 80 16 100 10/27/23 19:47 80 16 10/27/23 19:45 81 16 10/27/23 19:43 50 10/27/23 19:38 81 16 10/27/23 19:30 82 17 95/59 10/27/23 19:15 6 L 95/59 10/27/23 19:05 83 16 10/27/23 19:00 84 16 95/59 10/27/23 18:55 84 16 10/27/23 18:50 84 16 10/27/23 18:45 84 16 10/27/23 18:40 82 16 102/43 100 10/27/23 18:35 81 16 76/47 10/27/23 18:34 100 10/27/23 18:31 100 10/27/23 18:30 91.0 F L 79 13 72/46 10/27/23 16:35 61 20 94/54 92 L 10/27/23 16:00 67 20 74/33 91 L 10/27/23 15:30 64 20 79/39 92 L 10/27/23 14:58 63 20 78/39 94 L 10/27/23 14:31 71 22 88/51 96 10/27/23 13:45 20 L 20 10/27/23 13:18 53 L 16 116/95 99 10/27/23 13:15 97.1 F L Intake and Output 10/27/23 10/28/23 10/28/23 22:59 06:59 14:59 Intake Total 181.642 3930.404 440.041 Output Total 215 62 35 Balance 810.243 5492.404 405.041 Intake: IV 179 944 129 0.9 ART Line 9 24 9 0.9 Sheath 60 160 60 Piperacillin-Tazobactam 3 100 .375 gm In Sodium Chloride 0.9% 100 ml @ 25 mls/hr IVPB Q12H [facility] Rx# :[id number] Sodium Chloride 0.9% 1, 60 160 60 000 ml @ 20 mls/hr IV . Q24H [facility] Rx#:[id number] Vancomycin 2,000 mg In 500 Sodium Chloride 0.9% 500 ml 500 ml @ 167 mls/hr IVPB ONCE ONE Rx#: [id number] Intake, IV Titration 650.981 914.404 311.041 Amount DOPamine DRIP 800 mg In 419.141 391.074 Dextrose/Water 1 250ml. bag @ 5 MCG/KG/MIN 12.757 mls/hr IV .[id number] [facility] Rx#:[id number] Norepinephrine 32 mg In 155.023 197.101 210.496 Sodium Chloride 0.9% 218 ml @ 0.03 MCG/KG/MIN 1. 914 mls/hr IV .Q24H [facility] Rx#:[id number] propofoL 1,000 mg In 76.817 326.229 100.545 Empty Bag 1 bag @ 15 MCG/ KG/MIN 12.247 mls/hr IV . Q8H10M [facility] Rx#:[id number] Output: Urine 215 62 35 Other: Voiding Method Indwelling Catheter Indwelling Catheter Indwelling Catheter Weight 136.078 kg 126.8 kg ABP, PAP, CO, CI - Last 8 Hours Arterial Blood Pressure 115/43 Arterial Blood Pressure 119/44 Arterial Blood Pressure 114/43 Arterial Blood Pressure 106/39 Arterial Blood Pressure 110/40 Arterial Blood Pressure 112/41 Arterial Blood Pressure 108/41 Arterial Blood Pressure 111/42 Arterial Blood Pressure 113/42 Arterial Blood Pressure 114/48 Arterial Blood Pressure 112/50 Arterial Blood Pressure 109/47 Arterial Blood Pressure 114/50 Arterial Blood Pressure 115/50 Arterial Blood Pressure 115/52 Arterial Blood Pressure 115/51 Arterial Blood Pressure 116/51 Arterial Blood Pressure 118/52 Arterial Blood Pressure 120/54 Arterial Blood Pressure 120/53 Arterial Blood Pressure 131/64 Arterial Blood Pressure 123/56 Arterial Blood Pressure 123/57 Arterial Blood Pressure 126/57 Arterial Blood Pressure 125/57 Arterial Blood Pressure 124/57 Arterial Blood Pressure 125/57 Arterial Blood Pressure 126/58 Arterial Blood Pressure 128/58 GENERAL: The patient is lying in bed and is not in acute distress. HENT: Supple neck. No further nasal discharge noted. LUNG: Intubated on ventilator. NEUROLOGICAL: Limited. Patient is on IV Propofol 45mcg/kg/min. Is comatose. I had to manually open the eyes and the pupils are pinpoint bilaterally. Patient has positive corneal reflex bilaterally. Is breathing over the vent. Has intact gag reflex. She frowns face to painful stimuli. Is localizing to pain over the left upper extremity and right lower extremity. Results - Laboratory Findings CBC and BMP: 10/28/23 05:10 10/28/23 05:10 Abnormal Lab Findings: Abnormal Labs 10/27/23 10/27/23 10/27/23 13:59 13:59 13:59 WBC RBC 3.78 L Hgb 11.2 L RDW 16.8 H Neutrophils # Lymphocytes # 0.6 L APTT 35.2 H ABG pH ABG pCO2 ABG pO2 ABG HCO3 ABG O2 Saturation Sodium 132 L Potassium 5.4 H Carbon Dioxide 20 L BUN 46 H Creatinine 2.40 H Glucose POC Glucose (mg/dL) Phosphorus Magnesium 2.4 H Alkaline Phosphatase 128 H Total Protein Albumin 3.3 L Free T4 2.76 H Free T3 pg/mL 1.50 L 10/27/23 10/27/23 10/27/23 18:23 19:03 19:03 WBC 14.0 H RBC Hgb RDW 16.7 H Neutrophils # 12.8 H Lymphocytes # 0.5 L APTT ABG pH ABG pCO2 ABG pO2 ABG HCO3 ABG O2 Saturation Sodium 130 L Potassium Carbon Dioxide 18 L BUN 45 H Creatinine 2.37 H Glucose 276 H POC Glucose (mg/dL) 168 H Phosphorus 5.0 H Magnesium 2.4 H Alkaline Phosphatase 159 H Total Protein Albumin Free T4 Free T3 pg/mL 10/27/23 10/28/23 10/28/23 19:28 00:38 00:39 WBC RBC Hgb RDW Neutrophils # Lymphocytes # APTT ABG pH 7.23 L ABG pCO2 48 H ABG pO2 262 H ABG HCO3 20 L ABG O2 Saturation 100.1 H Sodium Potassium Carbon Dioxide BUN Creatinine Glucose POC Glucose (mg/dL) 331 H 361 H Phosphorus Magnesium Alkaline Phosphatase Total Protein Albumin Free T4 Free T3 pg/mL 10/28/23 10/28/23 10/28/23 05:08 05:10 05:10 WBC 16.2 H RBC 3.75 L Hgb 11.0 L RDW 16.5 H Neutrophils # 15.1 H Lymphocytes # 0.2 L APTT ABG pH ABG pCO2 ABG pO2 ABG HCO3 ABG O2 Saturation Sodium 130 L Potassium Carbon Dioxide 15 L BUN 47 H Creatinine 2.54 H Glucose 246 H POC Glucose (mg/dL) 254 H Phosphorus Magnesium Alkaline Phosphatase 131 H Total Protein 6.0 L Albumin 3.0 L Free T4 Free T3 pg/mL 10/28/23 10/28/23 05:42 08:34 WBC RBC Hgb RDW Neutrophils # Lymphocytes # APTT ABG pH 7.25 L ABG pCO2 ABG pO2 59 L* ABG HCO3 18 L ABG O2 Saturation 89.8 L Sodium Potassium Carbon Dioxide BUN Creatinine Glucose POC Glucose (mg/dL) 168 H Phosphorus Magnesium Alkaline Phosphatase Total Protein Albumin Free T4 Free T3 pg/mL Assessment and Plan Assessment: Is a 68-year-old woman who lives in the nursing facility who presents emergency department because of syncopal episode. She was found to have heart rate of 20. Yesterday after the temporary venous pacemaker placement when she was brought back to the ICU she had fixed dilated pupil and was not responding. She is on 3 pressors. Was also noted that she has clear nasal discharge. Today she has intact brainstem reflexes and she is breathing over the vent, localizing to pain pupils are pinpoint and has corneal reflex. syncopal episode due to symptomatic bradycardia as low as 20 requiring temporary venous pacemaker. Altered mental status due to above as well as metabolic encephalopathy. Possible anoxic encephalopathy Acute on chronic kidney insufficiency Cardiogenic shock with profound hypotensive requiring 3 pressors Hyponatremia 2 diabetes and during this hospital visit sugars in the 300 Benign essential hypertension History of hypothyroidism Right lower extremity cellulitis with possible sepsis and shock Plan: I ordered an urgent EEG CT of the head stat is ordered and is pending. Per the nurse patient is unstable to have the CT currently but once stable they will pursue with CT The echo was ordered by the cardiology team Will defer the rest of the medical management the primary and other specialist From neurological perspective her condition is very guarded. She has intact brainstem reflexes at this time. The plan discussed with patient ICU team Thank for the consultation Dr. Small will resume neurology service tomorrow A.M. Time with Patient: Greater than 30
--- NOTE | 2023-10-28 11:05 | P.HPIM ---
History of Present Illness H&P Date: 10/27/23 Chief Complaint: Altered mental status/syncope 68-year-old female presenting to the emergency department with syncopal episodes. Episode started within the last hour. Patient comes from [facility] and had a syncopal episode there. There is questionable hypotension. Christa gilbret did have 1 syncopal episode by EMS and was drowsy several times however blood pressure they obtained was not hypotensive. Patient admits to feeling drowsy and fatigued at this time however has no other complaints. No chest pain. No dyspnea. Patient denies confusion. According to the chart patient was transferred from the [facility] facility because of mottling of bilateral lower extremity difficulty breathing and confusion; in the ED patient was found to be bradycardic with rhythm strip showing 6-second pauses; EKG revealed sinus bradycardia with prolonged UT interval --Patient was evaluated by cardiology in ED and deemed to have severe bradycardia with sick sinus syndrome and 6-second pauses with slow junctional escape beats; patient was also found to be hypotensive and was placed on norepinephrine for blood pressure support and bradycardia; patient was taken to the [facility] for TV[facility]; patient is on anticoagulation therapy which was placed on hold given concern for stroke with patient with mental status change The patient was taken to the cardiac [facility], underwent temporary transvenous pacemaker placement using left femoral approach. In the cardiac catheterization lab having a pacemaker implantation, patient was noted to have significant hypotension requiring maximal therapy with norepinephrine and dopamine at 25 mcg/kg/min. Patient also received Ronnell-Synephrine, continues to have significant episodes of hypotension and worsening mental status/encephalopathy. Patient was sent to the ICU, and she was intubated in the intensive care unit. Review of Systems Constitutional: Denies: fever Eyes: Denies: eye pain ENT: Denies: ear pain Respiratory: Denies: dyspnea Cardiovascular: Denies: chest pain Gastrointestinal: Denies: abdominal pain Musculoskeletal: Denies: back pain Past Medical History Past Medical History: Diabetes Mellitus, Eye Disorder, Hyperlipidemia, Hypertension, Renal Disease, Skin Disorder, Thyroid Disorder Additional Past Medical History / Comment(s): Left shoulder and right hip pain. Kidney Disease - Stage 4-no dialysis,has good urine production.scattered raised lumps-Unknown name of skin disorder. left eye cataract, possible Covid infection Resp 2020-was in respiratory distress in ICU for 1 week History of Any Multi-Drug Resistant Organisms: None Reported Past Surgical History: Section, Tonsillectomy Additional Past Surgical History / Comment(s): "Female surgery, can't remember name of surgery.",left cataract removed,rt eye procedure,failed fistula creation left upper arm procedure 08-11-22 Past Anesthesia/Blood Transfusion Reactions: Previous Problems w/ Anesthesia Additional Past Anesthesia/Blood Transfusion Reaction / Comment(s): Difficulty urinating after one surgery. no hx blood transfusion Past Psychological History: Depression Smoking Status: Former smoker Past Alcohol Use History: Unable to Obtain Past Drug Use History: Unable to Obtain - Past Family History Mother Family Medical History: No Reported History Sister(s) Family Medical History: Cancer Additional Family Medical History / Comment(s): uterine CA Father Family Medical History: Liver Disease Additional Family Medical History / Comment(s): Alcoholism Medications and Allergies Home Medications Medication Instructions Recorded Confirmed Type Dialyvite 1 tab PO DAILY 08/09/22 10/27/23 History Ergocalciferol [Vitamin D2 (1250 1,250 mcg PO WE 08/09/22 10/27/23 History Mcg = 45795 Iu)] Ferrous Sulfate [Iron] 325 mg PO BID 08/09/22 10/27/23 History Acetaminophen Tab [Tylenol] 650 mg PO Q6H PRN 10/27/23 10/27/23 History Apixaban [Eliquis] 5 mg PO BID 10/27/23 10/27/23 History Atorvastatin [Lipitor] 10 mg PO DAILY 10/27/23 10/27/23 History Atorvastatin [Lipitor] 20 mg PO HS 10/27/23 10/27/23 History Budesonide [Pulmicort] 0.5 mg INHALATION RT-BID 10/27/23 10/27/23 History Bumetanide [Bumex] 1 mg PO DAILY 10/27/23 10/27/23 History Bumetanide [Bumex] 1 mg PO Q48H 10/27/23 10/27/23 History Dulaglutide [Trulicity] 0.75 mg SQ FR 10/27/23 10/27/23 History Famotidine [Pepcid] 10 mg PO DAILY 10/27/23 10/27/23 History Insulin Glargine [Lantus Vial] 10 unit SQ DAILY 10/27/23 10/27/23 History Insulin Lispro [Admelog Solostar] 2 units SQ DAILY@1100 10/27/23 10/27/23 History Insulin Lispro [Admelog Solostar] See Protocol SQ ACHS 10/27/23 10/27/23 History Ipratropium-Albuterol Nebulize 3 ml INHALATION RT-BID 10/27/23 10/27/23 History [Duoneb 0.5 mg-3 mg/3 ml Soln] L.acidoph,Paracasei, B.lactis 1 cap PO DAILY 10/27/23 10/27/23 History [Probiotic] Levothyroxine Sodium [Synthroid] 175 mcg PO DAILY 10/27/23 10/27/23 History Metoprolol Tartrate [Lopressor] 25 mg PO DAILY 10/27/23 10/27/23 History Potassium Chloride ER [K-Dur 20] 20 meq PO Q48H 10/27/23 10/27/23 History Thiamine [Vitamin B-1] 100 mg PO DAILY 10/27/23 10/27/23 History amLODIPine [Norvasc] 10 mg PO DAILY 10/27/23 10/27/23 History sitaGLIPtin [Januvia] 50 mg PO DAILY 10/27/23 10/27/23 History Allergies Allergy/AdvReac Type Severity Reaction Status Date / Time No Known Allergies Allergy Verified 10/27/23 13:37 Physical Exam Vitals: Vital Signs Temp Pulse Resp BP Pulse Ox FiO2 10/27/23 18:02 100 10/27/23 16:35 61 20 94/54 92 L 10/27/23 16:00 67 20 74/33 91 L 10/27/23 15:30 64 20 79/39 92 L 10/27/23 14:58 63 20 78/39 94 L 10/27/23 14:31 71 22 88/51 96 10/27/23 13:45 20 L 20 10/27/23 13:18 53 L 16 116/95 99 10/27/23 13:15 97.1 F L Intake and Output 10/27/23 10/27/23 10/27/23 06:59 14:59 22:59 Intake Total 14.033 0.660 Balance 14.033 0.660 Intake: Intake, IV Titration 14.033 0.660 Amount DOPamine DRIP 800 mg In 14.033 Dextrose/Water 1 250ml. bag @ 5 MCG/KG/MIN 12.757 mls/hr IV .[id number] [facility] Rx#:[id number] Norepinephrine 32 mg In 0.660 Sodium Chloride 0.9% 218 ml @ 0.03 MCG/KG/MIN 1. 914 mls/hr IV .Q24H [facility] Rx#:[id number] Other: Weight 136.078 kg General appearance: alert Head exam: Present: atraumatic Eye exam: Present: normal appearance, PERRL, EOMI Respiratory exam: Present: normal lung sounds bilaterally Cardiovascular Exam: Present: bradycardia Peripheral pulses: 1+: Carotid (R), Carotid (L), Radial (R), Radial (L) GI/Abdominal exam: Present: soft. Absent: tenderness Extremities exam: Present: pedal edema Neurological exam: Present: alert, altered. Absent: motor sensory deficit Psychiatric exam: Present: flat affect Skin exam: Present: other (Ulcer right lower leg) Results CBC & Chem 7: 10/28/23 05:10 10/28/23 05:10 Labs: Abnormal Lab Results - Last 24 Hours (Table) 10/27/23 10/27/23 10/27/23 Range/Units 13:59 13:59 13:59 RBC 3.78 L (3.80-5.40) m/uL Hgb 11.2 L (11.4-16.0) gm/dL RDW 16.8 H (11.5-15.5) % Lymphocytes # 0.6 L (1.0-4.8) k/uL APTT 35.2 H (22.0-30.0) sec Sodium 132 L (137-145) mmol/L Potassium 5.4 H (3.5-5.1) mmol/L Carbon Dioxide 20 L (22-30) mmol/L BUN 46 H (7-17) mg/dL Creatinine 2.40 H (0.52-1.04) mg/dL Magnesium 2.4 H (1.6-2.3) mg/dL Alkaline Phosphatase 128 H (38-126) U/L Albumin 3.3 L (3.5-5.0) g/dL Free T4 2.76 H (0.78-2.19) ng/dL Assessment and Plan Assessment: 1. Sick sinus syndrome; patient is status post temporary transvenous pacemaker placement 2. Shock/hypotension; cardiogenic versus septic shock -Cardiogenic shock with hypotension seems more likely; patient has been covered empirically with IV antibiotics in form of vancomycin and Zosyn; patient has been pancultured -Patient remains on norepinephrine and vasopressin along with dopamine 3. Acute on chronic kidney disease; likely ATN secondary to hypotension 4. Altered mental status; severe metabolic encephalopathy with possible anoxic brain injury versus possible CVA; neurology is consulted 5. Right lower extremity cellulitis with possible sepsis/septic shock -Patient has been placed on IV Zosyn and vancomycin; patient has been pancultured 6. History of diabetes mellitus type 2 7. Hyperlipidemia; Lipitor 30 mg daily 8. Hypothyroidism; levothyroxine 175 mcg daily DVT prophylaxis; SCDs for now; await CT of the head to rule out any intracranial pathology before starting systemic anticoagulation CODE STATUS; patient remains full code
[2023-10-28] MEDS: FUROSEMIDE 10 MG/ML 10 ML VIAL IV STA (11:33)
--- NOTE | 2023-10-28 11:42 | XR ---
EXAM: XR chest 1V portable CLINICAL INDICATION:Female, 68 years old with history of Tube placement; [facility] COMPARISON: 10/26/2021 and before TECHNIQUE: Chest single view. FINDINGS: Lines/tubes/devices: ET tube tip about 3.9 cm above the milad in good position. Right IJ approach ce ntral venous line over the inferior SVC. NG tube extends below the diaphragm on the left, coursing in to the left abdomen with the tip beyond the field of view. There does seem to be a right ventricular pacer lead extending up from the IVC. EKG leads and other extraneous densities over the chest. Cardiomediastinum: Cardiomediastinal silhouette is grossly stable and enlarged. Aortic atherosclerotic calcification. Vasculature: Increased pulmonary vascular congestion. Lungs/pleura: Increased fluffy bilateral perihilar infiltrates compared to prior, greatest on the right, with the a ppearance favoring pulmonary edema. Increased blunting of the costophrenic angles suggesting small to moderate enlarging pleural effusions. No visible pneumothorax. Bones/soft tissues: Bony thorax appears grossly intact as seen. Regional soft tissues appear unremarkable. IMPRESSION: 1. Increased pulmonary vascular congestion and bilateral perihilar infiltrates most suggestive of ed gris, with superimposed infection not excluded in the proper setting. Recommend clinical correlation a nd progress studies. 2. Enlarging small to moderate bilateral pleural effusions. 3. Lines and tubes in place, as above.
[2023-10-28 11:45] LABS: Glucose,Whole Blood 215 mg/dL (70-110)
--- NOTE | 2023-10-28 11:55 | P.NPCON ---
History of Present Illness - Reason for Consult acute renal failure - History of Present Illness Patient is a 68-year-old femalehistory of chronic kidney disease NKF stage IV with previous creatinine around 2.8-3 mg/dL.patient was hospitalized in July at [facility] and had acute kidney injury with serum creatinine around 3 at time of discharge. renal function had deteriorated recently in August with serum creatinine at 5.2 mg/dL on 09/11/2023 and improved to 4.2 on 09/18/2023. Patient is admitted with shortness of breath. She was noted to have bradycardia and was taken to [facility] for temporary pacemaker placement. Patient continue to be hypotensiveandwas eventually intubated and started on pressors including levo fed and vasopressin at max doses. Dopamine was around 30 mics. Patient had no urine output for a few hours and urine output has increased to about 25 mL per hour. serum potassium was 5.4 on admission. Chest x-ray shows pulmonary vascular congestion. Patient is maintained on empiric antibiotics. No evidence of acute [place]. Review of Systems as per HPI Past Medical History Past Medical History: Diabetes Mellitus, Eye Disorder, Hyperlipidemia, Hypertension, Renal Disease, Skin Disorder, Thyroid Disorder Additional Past Medical History / Comment(s): Left shoulder and right hip pain. Kidney Disease - Stage 4-no dialysis,has good urine production.scattered raised lumps-Unknown name of skin disorder. left eye cataract, possible Covid infection Resp 2020-was in respiratory distress in ICU for 1 week History of Any Multi-Drug Resistant Organisms: None Reported Past Surgical History: Section, Tonsillectomy Additional Past Surgical History / Comment(s): "Female surgery, can't remember n sebas of surgery.",left cataract removed,rt eye procedure,failed fistula creation left upper arm procedure 08-11-22 Past Anesthesia/Blood Transfusion Reactions: Previous Problems w/ Anesthesia Additional Past Anesthesia/Blood Transfusion Reaction / Comment(s): Difficulty urinating after one surgery. no hx blood transfusion Past Psychological History: Depression Smoking Status: Former smoker Past Alcohol Use History: Unable to Obtain Past Drug Use History: Unable to Obtain - Past Family History Mother Family Medical History: No Reported History Additional Family Medical History / Comment(s): Breast CA Sister(s) Family Medical History: Cancer Additional Family Medical History / Comment(s): uterine CA Father Family Medical History: Liver Disease Additional Family Medical History / Comment(s): Alcoholism Medications and Allergies Home Medications Medication Instructions Recorded Confirmed Type Dialyvite 1 tab PO DAILY 08/09/22 10/27/23 History Ergocalciferol [Vitamin D2 (1250 1,250 mcg PO WE 08/09/22 10/27/23 History Mcg = 47157 Iu)] Ferrous Sulfate [Iron] 325 mg PO BID 08/09/22 10/27/23 History Acetaminophen Tab [Tylenol] 650 mg PO Q6H PRN 10/27/23 10/27/23 History Apixaban [Eliquis] 5 mg PO BID 10/27/23 10/27/23 History Atorvastatin [Lipitor] 10 mg PO DAILY 10/27/23 10/27/23 History Atorvastatin [Lipitor] 20 mg PO HS 10/27/23 10/27/23 History Budesonide [Pulmicort] 0.5 mg INHALATION RT-BID 10/27/23 10/27/23 History Bumetanide [Bumex] 1 mg PO DAILY 10/27/23 10/27/23 History Bumetanide [Bumex] 1 mg PO Q48H 10/27/23 10/27/23 History Dulaglutide [Trulicity] 0.75 mg SQ FR 10/27/23 10/27/23 History Famotidine [Pepcid] 10 mg PO DAILY 10/27/23 10/27/23 History Insulin Glargine [Lantus Vial] 10 unit SQ DAILY 10/27/23 10/27/23 History Insulin Lispro [Admelog Solostar] 2 units SQ DAILY@1100 10/27/23 10/27/23 History Insulin Lispro [Admelog Solostar] See Protocol SQ ACHS 10/27/23 10/27/23 History Ipratropium-Albuterol Nebulize 3 ml INHALATION RT-BID 10/27/23 10/27/23 History [Duoneb 0.5 mg-3 mg/3 ml Soln] L.acidoph,Paracasei, B.lactis 1 cap PO DAILY 10/27/23 10/27/23 History [Probiotic] Levothyroxine Sodium [Synthroid] 175 mcg PO DAILY 10/27/23 10/27/23 History Metoprolol Tartrate [Lopressor] 25 mg PO DAILY 10/27/23 10/27/23 History Potassium Chloride ER [K-Dur 20] 20 meq PO Q48H 10/27/23 10/27/23 History Thiamine [Vitamin B-1] 100 mg PO DAILY 10/27/23 10/27/23 History amLODIPine [Norvasc] 10 mg PO DAILY 10/27/23 10/27/23 History sitaGLIPtin [Januvia] 50 mg PO DAILY 10/27/23 10/27/23 History Allergies Allergy/AdvReac Type Severity Reaction Status Date / Time No Known Allergies Allergy Verified 10/27/23 13:37 Physical Exam Vitals: Vital Signs Temp Pulse Resp BP Pulse Ox FiO2 10/28/23 11:15 90 26 H 96 10/28/23 11:09 70 10/28/23 11:00 88 19 97 10/28/23 10:45 87 19 97 10/28/23 10:30 86 19 97 10/28/23 10:15 91 26 H 97 10/28/23 10:00 72 18 93 L 10/28/23 09:45 82 18 96 10/28/23 09:30 83 20 98 10/28/23 09:15 81 18 98 10/28/23 09:00 80 23 98 10/28/23 08:45 80 18 98 10/28/23 08:30 81 22 98 10/28/23 08:15 80 22 96 10/28/23 08:00 98.4 F 65 18 96 70 10/28/23 07:52 95 70 10/28/23 07:51 65 10/28/23 07:47 70 10/28/23 07:46 70 10/28/23 07:45 64 33 H 95 10/28/23 07:39 64 10/28/23 07:30 64 17 95 10/28/23 07:15 65 16 95 10/28/23 07:00 66 21 95 10/28/23 06:45 67 18 94 L 10/28/23 06:30 70 24 94 L 10/28/23 06:15 65 18 94 L 10/28/23 06:07 80 10/28/23 06:00 98.6 F 76 20 95 80 10/28/23 05:45 80 20 91 L 10/28/23 05:30 85 20 92 L 10/28/23 05:15 87 20 98 10/28/23 05:00 87 20 94 L 10/28/23 04:45 88 21 95 10/28/23 04:30 96 23 95 10/28/23 04:15 89 24 95 10/28/23 04:01 50 10/28/23 04:00 97.5 F L 88 20 94 L 50 10/28/23 03:45 87 21 94 L 10/28/23 03:30 92 20 95 10/28/23 03:15 89 21 95 10/28/23 03:00 90 20 95 10/28/23 02:45 86 21 95 10/28/23 02:30 86 23 96 10/28/23 02:15 86 24 96 10/28/23 02:00 93 20 96 10/28/23 01:45 92 20 97 10/28/23 01:30 91 24 97 10/28/23 01:15 90 21 97 10/28/23 01:00 93 21 97 10/28/23 00:45 85 21 96 10/28/23 00:30 84 20 96 10/28/23 00:15 84 20 96 10/28/23 00:00 93.2 F L 85 20 97 50 10/27/23 23:45 84 20 97 10/27/23 23:41 82 20 97 10/27/23 23:30 81 20 98 10/27/23 23:15 85 21 98 10/27/23 23:00 90.4 F L 80 24 118/44 98 10/27/23 22:45 82 20 98 10/27/23 22:30 88 24 97 10/27/23 22:15 84 16 99 10/27/23 22:00 85 16 99 10/27/23 21:45 83 16 99 10/27/23 21:30 81 16 99 10/27/23 21:15 84 18 99 10/27/23 21:00 82 21 99 50 10/27/23 20:45 81 16 10/27/23 20:30 82 16 118/44 10/27/23 20:15 80 17 50 10/27/23 20:00 80 16 100 10/27/23 19:47 80 16 10/27/23 19:45 81 16 10/27/23 19:43 50 10/27/23 19:38 81 16 08/03/24 19:30 82 17 95/59 08/03/24 19:15 6 L 95/59 10/27/23 19:05 83 16 10/27/23 19:00 84 16 95/59 10/27/23 18:55 84 16 10/27/23 18:50 84 16 10/27/23 18:45 84 16 10/27/23 18:40 82 16 102/43 100 10/27/23 18:35 81 16 76/47 10/27/23 18:34 100 10/27/23 18:31 100 10/27/23 18:30 91.0 F L 79 13 72/46 10/27/23 16:35 61 20 94/54 92 L 10/27/23 16:00 67 20 74/33 91 L 10/27/23 15:30 64 20 79/39 92 L 10/27/23 14:58 63 20 78/39 94 L 10/27/23 14:31 71 22 88/51 96 10/27/23 13:45 20 L 20 10/27/23 13:18 53 L 16 116/95 99 10/27/23 13:15 97.1 F L Intake and Output 10/27/23 10/28/23 10/28/23 22:59 06:59 14:59 Intake Total 778.982 0811.404 686.041 Output Total 215 62 95 Balance 350.291 5019.404 591.041 Intake: IV 179 944 315 0.9 ART Line 9 24 15 0.9 Sheath 60 160 100 Piperacillin-Tazobactam 3 100 100 .375 gm In Sodium Chloride 0.9% 100 ml @ 25 mls/hr IVPB Q12H [facility] Rx# :[id number] Sodium Chloride 0.9% 1, 60 160 100 000 ml @ 20 mls/hr IV . Q24H [facility] Rx#:[id number] Vancomycin 2,000 mg In 500 Sodium Chloride 0.9% 500 ml 500 ml @ 167 mls/hr IVPB ONCE ONE Rx#: [id number] Intake, IV Titration 650.981 914.404 311.041 Amount DOPamine DRIP 800 mg In 419.141 391.074 Dextrose/Water 1 250ml. bag @ 5 MCG/KG/MIN 12.757 mls/hr IV .[id number] [facility] Rx#:[id number] Norepinephrine 32 mg In 155.023 197.101 210.496 Sodium Chloride 0.9% 218 ml @ 0.03 MCG/KG/MIN 1. 914 mls/hr IV .Q24H ONE Rx#:[id number] propofoL 1,000 mg In 76.817 326.229 100.545 Empty Bag 1 bag @ 15 MCG/ KG/MIN 12.247 mls/hr IV . Q8H10M [facility] Rx#:[id number] Oral 60 Output: Urine 215 62 95 Other: Voiding Method Indwelling Catheter Indwelling Catheter Indwelling Catheter Weight 136.078 kg 126.8 kg ABP, PAP, CO, CI - Last 8 Hours Arterial Blood Pressure 110/46 Arterial Blood Pressure 117/47 Arterial Blood Pressure 117/46 Arterial Blood Pressure 117/47 Arterial Blood Pressure 116/47 Arterial Blood Pressure 102/45 Arterial Blood Pressure 124/49 Arterial Blood Pressure 115/43 Arterial Blood Pressure 115/43 Arterial Blood Pressure 115/43 Arterial Blood Pressure 119/44 Arterial Blood Pressure 114/43 Arterial Blood Pressure 106/39 Arterial Blood Pressure 110/40 Arterial Blood Pressure 112/41 Arterial Blood Pressure 108/41 Arterial Blood Pressure 111/42 Arterial Blood Pressure 113/42 Arterial Blood Pressure 114/48 Arterial Blood Pressure 112/50 Arterial Blood Pressure 109/47 Arterial Blood Pressure 114/50 Arterial Blood Pressure 115/50 Arterial Blood Pressure 115/52 Arterial Blood Pressure 115/51 Arterial Blood Pressure 116/51 Arterial Blood Pressure 118/52 Arterial Blood Pressure 120/54 Arterial Blood Pressure 120/53 Arterial Blood Pressure 131/64 Arterial Blood Pressure 123/56 patient is sedated and on the vent Examination of the heart S1 and S2 Examination of the lungs bilateral breath sounds are heard Abdomen is soft obese Examination of lower extremities shows chronic skin changes right lower extremity is wrapped. No significant edema noted. Results - Lab Results Most recent lab results ABG pH 7.25 (7.35-7.45) L 10/28/23 05:42 ABG pCO2 41 mmHg (35-45) 10/28/23 05:42 ABG pO2 59 mmHg (83-108) L* 10/28/23 05:42 ABG HCO3 18 mmol/L (21-25) L 10/28/23 05:42 ABG O2 Saturation 89.8 % (94-97) L 10/28/23 05:42 Calcium 8.5 mg/dL (8.4-10.2) 10/28/23 05:10 Phosphorus 5.0 mg/dL (2.5-4.5) H 10/27/23 19:03 Magnesium 2.0 mg/dL (1.6-2.3) 10/28/23 05:10 10/28/23 05:10 10/28/23 05:10 Assessment and Plan Assessment: 1. Acute kidney injury, ATN initially oliguric currently with improving urine output. Etiology is mostly hypotension. check UA. I will check on the imaging studies done at [facility] during her last admission. 2. CK D stage IV-V secondary to diabetic kidney disease and nephrosclerosis with baseline creatinine around 3 mg/dL with recent worsening of renal function and serum creatinine 4.2 on 09/18/2023. Patient had issues regarding Follow-up with vascular surgery as outpatient due to bills not being paid. She does have a left arm AV fistula 3. Acute hypoxic respiratory failure currently on the vent 4. Bradycardia status post temporary pacemaker placement and maintained on dopamine. Potassium was was not significantly elevated. It was 5.46 5. Hypotension most likely cardiac, status post temporary pacemaker. Dopamine is being weaned down. Patient is maintained on empiric antibiotics. Check echocardiogram to rule out pericardial effusion. 6. Non-gap metabolic acidosis secondary to chronic kidney disease Plan: add IV Lasix. Consult vascular surgery as she has had a left forearm AV fistula previously Currently patient is significantly hypotensive and not stable for renal replacement therapy. We will continue to monitor and assess on daily basis. Check echocardiogram to rule out pericardial effusion. Thank you for the consultation. We will continue to follow the patient with you during her hospitalization.
[2023-10-28 13:06] LABS: Appearance,Urine Cloudy (Clear); Bacteria,Urine Few /hpf; Bilirubin,Urine Negative (Negative); Blood,Urine Trace (Negative); Color,Urine Colorless; Glucose,Urine (UA) Negative (Negative); Ketones,Urine Negative (Negative); Leukocyte Esterase,Urine Large (Negative); Mucus,Urine Rare /hpf; Nitrite,Urine Negative (Negative); Protein,Urine Trace (Negative); RBC,Urine 8 /hpf (0-5); Squamous Epithelial Cell,Urine 1 /hpf (0-4); Urobilinogen,Urine <2.0 mg/dL (<2.0); WBC,Urine 146 /hpf (0-5)
--- NOTE | 2023-10-28 13:13 | P.PN ---
Subjective Progress Note Date: 10/28/23 HISTORY OF PRESENTING ILLNESS Patient is a 68-year-old female with multiple comorbidities. She has history of CKD stage IV, type 2 diabetes, morbid obesity, paroxysmal atrial fibrillation. She is known to Dr. Milligan. in July 2023 patient was at [facility] where she had a complicated and long hospital stay. She had acute hypoxic respiratory failure with pneumonia requiring intubation and mechanical ventilatory support. During her hospital stay she also had an episode of atrial flutter. This time she was presented to the hospital from the senior care facility because she was found to be confused, had mottled bilateral lower extremity, difficulty in breathing. On admission she was noticed to be in significant bradycardia. Admission ECG showed sinus bradycardia with prolonged MD interval. Rhythm strips showed 6-second pauses which were repetitive. Progress note October 28, 2023 Patient is on vent support, hemodynamically stable, continues to be on 3 pressors norepinephrine vasopressin and dopamine. I will discontinue her dopamine and try to wean off other pressors. Patient has not had any bradycardic episodes while being on pressors but it is noted that she has a very prolonged MD interval and would have intermittent Wenckebach phenomena. PHYSICAL EXAMINATION Morbidly obese Lungs: On vent support, diminished breath sounds, diffuse crackles and rhonchi audible Heart: Regular pulses, bradycardia, no significant murmurs appreciated Abdomen: Morbidly obese, abdomen is distended, hyperactive bowel sounds Extremities: 1-2+ pitting edema bilateral lower extremity, mottled extremities. Neuro: Under sedation, detailed neuroexam was not performed ASSESSMENT Severe bradycardia with sick sinus syndrome and 6-second pauses, with slow ju nctional escape beats Acute metabolic encephalopathy Acute hypoxic respiratory failure Shock state requiring pressor support. Rule out sepsis. AV nuris disease, with prolonged MD interval and Wenckebach Paroxysmal atrial fibrillation, currently sinus Morbid obesity Type 2 diabetes Hypertension Dyslipidemia Cardiac testing Echo shows EF 55%, no obvious wall motion abnormality, moderate RV dilatation, TSH is 2.7, troponin negative, BNP 2800 PLAN Patient does have prior AV nuris disease because of longer interval. But I feel patient's sick sinus syndrome and sinus bradycardia could be related to uncontrolled and untreated sleep apnea. She was having bradycardic episodes when she was sleeping but would get out of bradycardia when awake. Patient was encephalopathic and drowsy during evaluation which kind of worsened her bradycardia. Her potassium was borderline low. Continue supportive care Continue norepinephrine. Use vasopressin if needed. Plan for intubation of the patient due to metabolic encephalopathy, acute hypoxia Consider ruling out possibility of CVA Obtain limited echocardiogram Keep potassium at 4, magnesium at 2. Monitor renal function, monitor urine output. Holding anticoagulation until rule out any concerns of stroke. Reason for anticoagulation is atrial fibrillation. Continue VTE prophylaxis Overall patient has poor prognosis. I explained this in detail to the patient's sister who was present at the bedside. She would like to continue with maximum care at this time until patient's daughter is back to visit her from [place]. I explained to her that she will be a poor candidate for a permanent pacemaker eventually because of her multiple comorbidities at least at this time. Objective - Vital Signs Vital signs: Vital Signs Temp 98.6 F 10/28/23 12:00 Pulse 72 10/28/23 13:00 Resp 20 10/28/23 13:00 BP 118/44 10/28/23 02:00 Pulse Ox 94 L 10/28/23 13:00 FiO2 70 10/28/23 12:00 Intake & Output 10/27/23 10/28/23 10/28/23 18:59 06:59 18:59 Intake Total 893.984 8566.663 772.041 Output Total 277 175 Balance 077.981 8759.663 597.041 Weight 136.078 kg 126.8 kg Intake: IV 50 1073 401 0.9 ART Line 33 21 0.9 Sheath 220 140 Piperacillin-Tazobactam 3 100 100 .375 gm In Sodium Chloride 0.9% 100 ml @ 25 mls/hr IVPB Q12H [facility] Rx# :[id number] Sodium Chloride 0.9% 1, 220 140 000 ml @ 20 mls/hr IV . Q24H [facility] Rx#:[id number] Vancomycin 2,000 mg In 500 Sodium Chloride 0.9% 500 ml 500 ml @ 167 mls/hr IVPB ONCE ONE Rx#: [id number] Intake, IV Titration 885.799 3928.663 311.041 Amount DOPamine DRIP 800 mg In 205.392 618.856 Dextrose/Water 1 250ml. bag @ 5 MCG/KG/MIN 12.757 mls/hr IV .[id number] [facility] Rx#:[id number] Norepinephrine 32 mg In 29.363 322.761 210.496 Sodium Chloride 0.9% 218 ml @ 0.03 MCG/KG/MIN 1. 914 mls/hr IV .Q24H ONE Rx#:[id number] propofoL 1,000 mg In 403.046 100.545 Empty Bag 1 bag @ 15 MCG/ KG/MIN 12.247 mls/hr IV . Q8H10M [facility] Rx#:[id number] Oral 60 Output: Urine 277 175 Other: Voiding Method Indwelling Catheter Indwelling Catheter ABP, PAP, CO, CI - Last Documented Arterial Blood Pressure 90/41 - Labs CBC & Chem 7: 10/28/23 05:10 10/28/23 05:10 Labs: Abnormal Lab Results - Last 24 Hours (Table) 10/27/23 10/27/23 10/27/23 Range/Units 13:59 13:59 13:59 WBC (3.8-10.6) k/uL RBC 3.78 L (3.80-5.40) m/uL Hgb 11.2 L (11.4-16.0) gm/dL RDW 16.8 H (11.5-15.5) % Neutrophils # (1.3-7.7) k/uL Lymphocytes # 0.6 L (1.0-4.8) k/uL APTT 35.2 H (22.0-30.0) sec ABG pH (7.35-7.45) ABG pCO2 (35-45) mmHg ABG pO2 (83-108) mmHg ABG HCO3 (21-25) mmol/L ABG O2 Saturation (94-97) % Sodium 132 L (137-145) mmol/L Potassium 5.4 H (3.5-5.1) mmol/L Carbon Dioxide 20 L (22-30) mmol/L BUN 46 H (7-17) mg/dL Creatinine 2.40 H (0.52-1.04) mg/dL Glucose (74-99) mg/dL POC Glucose (mg/dL) (70-110) mg/dL Phosphorus (2.5-4.5) mg/dL Magnesium 2.4 H (1.6-2.3) mg/dL Alkaline Phosphatase 128 H (38-126) U/L Total Protein (6.3-8.2) g/dL Albumin 3.3 L (3.5-5.0) g/dL Free T4 2.76 H (0.78-2.19) ng/dL Free T3 pg/mL 1.50 L (2.30-4.20) pg/mL Urine Appearance (Clear) Urine Protein (Negative) Urine Blood (Negative) Ur Leukocyte Esterase (Negative) Urine RBC (0-5) /hpf Urine WBC (0-5) /hpf Urine WBC Clumps (None) /hpf Urine Bacteria (None) /hpf Urine Mucus (None) /hpf 10/27/23 10/27/23 10/27/23 Range/Units 18:23 19:03 19:03 WBC 14.0 H (3.8-10.6) k/uL RBC (3.80-5.40) m/uL Hgb (11.4-16.0) gm/dL RDW 16.7 H (11.5-15.5) % Neutrophils # 12.8 H (1.3-7.7) k/uL Lymphocytes # 0.5 L (1.0-4.8) k/uL APTT (22.0-30.0) sec ABG pH (7.35-7.45) ABG pCO2 (35-45) mmHg ABG pO2 (83-108) mmHg ABG HCO3 (21-25) mmol/L ABG O2 Saturation (94-97) % Sodium 130 L (137-145) mmol/L Potassium (3.5-5.1) mmol/L Carbon Dioxide 18 L (22-30) mmol/L BUN 45 H (7-17) mg/dL Creatinine 2.37 H (0.52-1.04) mg/dL Glucose 276 H (74-99) mg/dL POC Glucose (mg/dL) 168 H (70-110) mg/dL Phosphorus 5.0 H (2.5-4.5) mg/dL Magnesium 2.4 H (1.6-2.3) mg/dL Alkaline Phosphatase 159 H (38-126) U/L Total Protein (6.3-8.2) g/dL Albumin (3.5-5.0) g/dL Free T4 (0.78-2.19) ng/dL Free T3 pg/mL (2.30-4.20) pg/mL Urine Appearance (Clear) Urine Protein (Negative) Urine Blood (Negative) Ur Leukocyte Esterase (Negative) Urine RBC (0-5) /hpf Urine WBC (0-5) /hpf Urine WBC Clumps (None) /hpf Urine Bacteria (None) /hpf Urine Mucus (None) /hpf 10/27/23 10/28/23 10/28/23 Range/Units 19:28 00:38 00:39 WBC (3.8-10.6) k/uL RBC (3.80-5.40) m/uL Hgb (11.4-16.0) gm/dL RDW (11.5-15.5) % Neutrophils # (1.3-7.7) k/uL Lymphocytes # (1.0-4.8) k/uL APTT (22.0-30.0) sec ABG pH 7.23 L (7.35-7.45) ABG pCO2 48 H (35-45) mmHg ABG pO2 262 H (83-108) mmHg ABG HCO3 20 L (21-25) mmol/L ABG O2 Saturation 100.1 H (94-97) % Sodium (137-145) mmol/L Potassium (3.5-5.1) mmol/L Carbon Dioxide (22-30) mmol/L BUN (7-17) mg/dL Creatinine (0.52-1.04) mg/dL Glucose (74-99) mg/dL POC Glucose (mg/dL) 331 H 361 H (70-110) mg/dL Phosphorus (2.5-4.5) mg/dL Magnesium (1.6-2.3) mg/dL Alkaline Phosphatase (38-126) U/L Total Protein (6.3-8.2) g/dL Albumin (3.5-5.0) g/dL Free T4 (0.78-2.19) ng/dL Free T3 pg/mL (2.30-4.20) pg/mL Urine Appearance (Clear) Urine Protein (Negative) Urine Blood (Negative) Ur Leukocyte Esterase (Negative) Urine RBC (0-5) /hpf Urine WBC (0-5) /hpf Urine WBC Clumps (None) /hpf Urine Bacteria (None) /hpf Urine Mucus (None) /hpf 10/28/23 10/28/23 10/28/23 Range/Units 05:08 05:10 05:10 WBC 16.2 H (3.8-10.6) k/uL RBC 3.75 L (3.80-5.40) m/uL Hgb 11.0 L (11.4-16.0) gm/dL RDW 16.5 H (11.5-15.5) % Neutrophils # 15.1 H (1.3-7.7) k/uL Lymphocytes # 0.2 L (1.0-4.8) k/uL APTT (22.0-30.0) sec ABG pH (7.35-7.45) ABG pCO2 (35-45) mmHg ABG pO2 (83-108) mmHg ABG HCO3 (21-25) mmol/L ABG O2 Saturation (94-97) % Sodium 130 L (137-145) mmol/L Potassium (3.5-5.1) mmol/L Carbon Dioxide 15 L (22-30) mmol/L BUN 47 H (7-17) mg/dL Creatinine 2.54 H (0.52-1.04) mg/dL Glucose 246 H (74-99) mg/dL POC Glucose (mg/dL) 254 H (70-110) mg/dL Phosphorus (2.5-4.5) mg/dL Magnesium (1.6-2.3) mg/dL Alkaline Phosphatase 131 H (38-126) U/L Total Protein 6.0 L (6.3-8.2) g/dL Albumin 3.0 L (3.5-5.0) g/dL Free T4 (0.78-2.19) ng/dL Free T3 pg/mL (2.30-4.20) pg/mL Urine Appearance (Clear) Urine Protein (Negative) Urine Blood (Negative) Ur Leukocyte Esterase (Negative) Urine RBC (0-5) /hpf Urine WBC (0-5) /hpf Urine WBC Clumps (None) /hpf Urine Bacteria (None) /hpf Urine Mucus (None) /hpf 10/28/23 10/28/23 10/28/23 Range/Units 05:42 08:34 11:44 WBC (3.8-10.6) k/uL RBC (3.80-5.40) m/uL Hgb (11.4-16.0) gm/dL RDW (11.5-15.5) % Neutrophils # (1.3-7.7) k/uL Lymphocytes # (1.0-4.8) k/uL APTT (22.0-30.0) sec ABG pH 7.25 L (7.35-7.45) ABG pCO2 (35-45) mmHg ABG pO2 59 L* (83-108) mmHg ABG HCO3 18 L (21-25) mmol/L ABG O2 Saturation 89.8 L (94-97) % Sodium (137-145) mmol/L Potassium (3.5-5.1) mmol/L Carbon Dioxide (22-30) mmol/L BUN (7-17) mg/dL Creatinine (0.52-1.04) mg/dL Glucose (74-99) mg/dL POC Glucose (mg/dL) 168 H 215 H (70-110) mg/dL Phosphorus (2.5-4.5) mg/dL Magnesium (1.6-2.3) mg/dL Alkaline Phosphatase (38-126) U/L Total Protein (6.3-8.2) g/dL Albumin (3.5-5.0) g/dL Free T4 (0.78-2.19) ng/dL Free T3 pg/mL (2.30-4.20) pg/mL Urine Appearance (Clear) Urine Protein (Negative) Urine Blood (Negative) Ur Leukocyte Esterase (Negative) Urine RBC (0-5) /hpf Urine WBC (0-5) /hpf Urine WBC Clumps (None) /hpf Urine Bacteria (None) /hpf Urine Mucus (None) /hpf 10/28/23 Range/Units 12:21 WBC (3.8-10.6) k/uL RBC (3.80-5.40) m/uL Hgb (11.4-16.0) gm/dL RDW (11.5-15.5) % Neutrophils # (1.3-7.7) k/uL Lymphocytes # (1.0-4.8) k/uL APTT (22.0-30.0) sec ABG pH (7.35-7.45) ABG pCO2 (35-45) mmHg ABG pO2 (83-108) mmHg ABG HCO3 (21-25) mmol/L ABG O2 Saturation (94-97) % Sodium (137-145) mmol/L Potassium (3.5-5.1) mmol/L Carbon Dioxide (22-30) mmol/L BUN (7-17) mg/dL Creatinine (0.52-1.04) mg/dL Glucose (74-99) mg/dL POC Glucose (mg/dL) (70-110) mg/dL Phosphorus (2.5-4.5) mg/dL Magnesium (1.6-2.3) mg/dL Alkaline Phosphatase (38-126) U/L Total Protein (6.3-8.2) g/dL Albumin (3.5-5.0) g/dL Free T4 (0.78-2.19) ng/dL Free T3 pg/mL (2.30-4.20) pg/mL Urine Appearance Cloudy H (Clear) Urine Protein Trace H (Negative) Urine Blood Trace H (Negative) Ur Leukocyte Esterase Large H (Negative) Urine RBC 8 H (0-5) /hpf Urine WBC 146 H (0-5) /hpf Urine WBC Clumps Few H (None) /hpf Urine Bacteria Few H (None) /hpf Urine Mucus Rare H (None) /hpf
--- NOTE | 2023-10-28 14:16 | CT ---
EXAMINATION TYPE: CT brain wo con CT DLP: 1301.4 mGycm, Automated exposure control for dose reduction was used. DATE OF EXAM: 10/28/2023 2:04 PM COMPARISON: CT brain 09/09/2023. CLINICAL INDICATION:Female, 68 years old with history of AMS, AMS TECHNIQUE: Brain: Axial CT images of the brain were obtained with coronal and sagittal reformats created and rev iewed. Contrast used: None. Oral contrast used: None. FINDINGS: Brain: Extra-axial spaces: No abnormal extra-axial fluid collections. Ventricular system: Within normal limits Cerebral parenchyma: No acute intraparenchymal hemorrhage or mass effect. The friend-white junction is well differentiated. Scattered hypoattenuating areas are seen within the white matter. Cerebellum: Unremarkable. Mass effect: No evidence of midline shift. Intracranial vasculature: Atherosclerotic calcifications of the intracranial vessels. Soft tissues: Interval resolution of right parietal scalp hematoma. Calvarium/osseous structures: No depressed skull fracture. Paranasal sinuses and mastoid air cells: Diffuse paranasal sinus disease with near complete opacifica tion of ethmoid air cells. Visualized orbits: Orbital contents are intact. IMPRESSION: 1. No acute intracranial process. 2. Nonspecific white matter changes, likely secondary to chronic small vessel ischemic disease. 3. Diffuse paranasal sinus disease.
[2023-10-28 18:04] LABS: Glucose,Whole Blood 152 mg/dL (70-110)
--- NOTE | 2023-10-28 18:05 | P.PN ---
Subjective Progress Note Date: 10/28/23 68-year-old female presenting to the emergency department with syncopal episodes. Episode started within the last hour. Patient comes from long term and had a syncopal episode there. There is questionable hypotension. Patient did have 1 syncopal episode by EMS and was drowsy several times however blood pressure they obtained was not hypotensive. Patient admits to feeling drowsy and fatigued at this time however has no other complaints. No chest pain. No dyspnea. Patient denies confusion. According to the chart patient was transferred from the long term facility because of mottling of bilateral lower extremity difficulty breathing and confusion; in the ED patient was found to be bradycardic with rhythm strip showing 6-second pauses; EKG revealed sinus bradycardia with prolonged ME i nterval --Patient was evaluated by cardiology in ED and deemed to have severe bradycardia with sick sinus syndrome and 6-second pauses with slow junctional escape beats; patient was also found to be hypotensive and was placed on norepinephrine for blood pressure support and bradycardia; patient was taken to the Sales Director for TVP; patient is on anticoagulation therapy which was placed on hold given concern for stroke with patient with mental status change The patient was taken to the cardiac Sales Director, underwent temporary transvenous pacemaker placement using left femoral approach. In the cardiac catheterization lab having a pacemaker implantation, patient was noted to have significant hypotension requiring maximal therapy with norepinephrine and dopamine at 25 mcg/kg/min. Patient also received Ronnell-Synephrine, continues to have significant episodes of hypotension and worsening mental status/encephalopathy. Patient was sent to the ICU, and she was intubated in the intensive care unit. Objective - Vital Signs Vital signs: Vital Signs Temp 98.4 F 10/28/23 08:00 Pulse 72 10/28/23 10:00 Resp 18 10/28/23 10:00 BP 118/44 10/28/23 02:00 Pulse Ox 93 L 10/28/23 10:00 FiO2 70 10/28/23 08:00 Intake & Output 10/27/23 10/28/23 10/28/23 18:59 06:59 18:59 Intake Total 827.478 5067.663 543.041 Output Total 277 60 Balance 743.474 4968.663 483.041 Weight 136.078 kg 126.8 kg Intake: IV 50 1073 172 0.9 ART Line 33 12 0.9 Sheath 220 80 Piperacillin-Tazobactam 3 100 .375 gm In Sodium Chloride 0.9% 100 ml @ 25 mls/hr IVPB Q12H [facility] Rx# :[id number] Sodium Chloride 0.9% 1, 220 80 000 ml @ 20 mls/hr IV . Q24H [facility] Rx#:[id number] Vancomycin 2,000 mg In 500 Sodium Chloride 0.9% 500 ml 500 ml @ 167 mls/hr IVPB [facility] Rx#: [id number] Intake, IV Titration 005.727 2714.663 311.041 Amount DOPamine DRIP 800 mg In 205.392 618.856 Dextrose/Water 1 250ml. bag @ 5 MCG/KG/MIN 12.757 mls/hr IV .[id number] [facility] Rx#:[id number] Norepinephrine 32 mg In 29.363 322.761 210.496 Sodium Chloride 0.9% 218 ml @ 0.03 MCG/KG/MIN 1. 914 mls/hr IV .Q24H [facility] Rx#:[id number] propofoL 1,000 mg In 403.046 100.545 Empty Bag 1 bag @ 15 MCG/ KG/MIN 12.247 mls/hr IV . Q8H10M [facility] Rx#:[id number] Oral 60 Output: Urine 277 60 Other: Voiding Method Indwelling Catheter Indwelling Catheter ABP, PAP, CO, CI - Last Documented Arterial Blood Pressure 102/45 - Exam 68-year-old female morbidly obese intubated, mechanically ventilated, on pro pofol, unresponsive to any stimuli including deep painful stimuli, pupils are reactive. Head:Atraumatic, normocephalic HEENT: PERRLA, nonicteric, no neck masses, patient has a short obese neck, right IJ central line is noted, left IJ Cordis is also noted. Endotracheal tube and orogastric tube are intact. Chest: Diminished breath sound bilaterally no crackles rhonchi or wheezes Cardiac: Distant S1-S2, no S3 gallop. No murmur. Abdomen: Obese soft nontender no megaly no rebound no guarding Extremities: Right lower extremity is wrapped with a sterile dressing however she has chronic nonhealing ulcer on the dorsal aspect of the right lower extremity above the ankle apparently had significant purulent drainage noted yesterday, I was able to review the pictures of the ulcer. In addition the anne marie naqvi has diminished distal pulses with some bluish discoloration of the tips of her toes bilaterally both feet are warm, not cold to touch Neurologic:: Could not assess. Patient is sedated, presently on responsive to any stimuli including the painful stimuli. However according to the nurse off propofol the patient was noted to be restless and agitated and not synchronous with the ventilator Skin: Nonhealing ulcer right lower extremity as noted above. And bluish discoloration of the tips of the toes bilaterally but warm feet noted. And diminished distal pulses - Labs CBC & Chem 7: 10/28/23 05:10 10/28/23 05:10 Labs: Abnormal Lab Results - Last 24 Hours (Table) 10/27/23 10/27/23 10/27/23 Range/Units 13:59 13:59 13:59 WBC (3.8-10.6) k/uL RBC 3.78 L (3.80-5.40) m/uL Hgb 11.2 L (11.4-16.0) gm/dL RDW 16.8 H (11.5-15.5) % Neutrophils # (1.3-7.7) k/uL Lymphocytes # 0.6 L (1.0-4.8) k/uL APTT 35.2 H (22.0-30.0) sec ABG pH (7.35-7.45) ABG pCO2 (35-45) mmHg ABG pO2 (83-108) mmHg ABG HCO3 (21-25) mmol/L ABG O2 Saturation (94-97) % Sodium 132 L (137-145) mmol/L Potassium 5.4 H (3.5-5.1) mmol/L Carbon Dioxide 20 L (22-30) mmol/L BUN 46 H (7-17) mg/dL Creatinine 2.40 H (0.52-1.04) mg/dL Glucose (74-99) mg/dL POC Glucose (mg/dL) (70-110) mg/dL Phosphorus (2.5-4.5) mg/dL Magnesium 2.4 H (1.6-2.3) mg/dL Alkaline Phosphatase 128 H (38-126) U/L Total Protein (6.3-8.2) g/dL Albumin 3.3 L (3.5-5.0) g/dL Free T4 2.76 H (0.78-2.19) ng/dL Free T3 pg/mL 1.50 L (2.30-4.20) pg/mL 10/27/23 10/27/23 10/27/23 Range/Units 18:23 19:03 19:03 WBC 14.0 H (3.8-10.6) k/uL RBC (3.80-5.40) m/uL Hgb (11.4-16.0) gm/dL RDW 16.7 H (11.5-15.5) % Neutrophils # 12.8 H (1.3-7.7) k/uL Lymphocytes # 0.5 L (1.0-4.8) k/uL APTT (22.0-30.0) sec ABG pH (7.35-7.45) ABG pCO2 (35-45) mmHg ABG pO2 (83-108) mmHg ABG HCO3 (21-25) mmol/L ABG O2 Saturation (94-97) % Sodium 130 L (137-145) mmol/L Potassium (3.5-5.1) mmol/L Carbon Dioxide 18 L (22-30) mmol/L BUN 45 H (7-17) mg/dL Creatinine 2.37 H (0.52-1.04) mg/dL Glucose 276 H (74-99) mg/dL POC Glucose (mg/dL) 168 H (70-110) mg/dL Phosphorus 5.0 H (2.5-4.5) mg/dL Magnesium 2.4 H (1.6-2.3) mg/dL Alkaline Phosphatase 159 H (38-126) U/L Total Protein (6.3-8.2) g/dL Albumin (3.5-5.0) g/dL Free T4 (0.78-2.19) ng/dL Free T3 pg/mL (2.30-4.20) pg/mL 10/27/23 10/28/23 10/28/23 Range/Units 19:28 00:38 00:39 WBC (3.8-10.6) k/uL RBC (3.80-5.40) m/uL Hgb (11.4-16.0) gm/dL RDW (11.5-15.5) % Neutrophils # (1.3-7.7) k/uL Lymphocytes # (1.0-4.8) k/uL APTT (22.0-30.0) sec ABG pH 7.23 L (7.35-7.45) ABG pCO2 48 H (35-45) mmHg ABG pO2 262 H (83-108) mmHg ABG HCO3 20 L (21-25) mmol/L ABG O2 Saturation 100.1 H (94-97) % Sodium (137-145) mmol/L Potassium (3.5-5.1) mmol/L Carbon Dioxide (22-30) mmol/L BUN (7-17) mg/dL Creatinine (0.52-1.04) mg/dL Glucose (74-99) mg/dL POC Glucose (mg/dL) 331 H 361 H (70-110) mg/dL Phosphorus (2.5-4.5) mg/dL Magnesium (1.6-2.3) mg/dL Alkaline Phosphatase (38-126) U/L Total Protein (6.3-8.2) g/dL Albumin (3.5-5.0) g/dL Free T4 (0.78-2.19) ng/dL Free T3 pg/mL (2.30-4.20) pg/mL 10/28/23 10/28/23 10/28/23 Range/Units 05:08 05:10 05:10 WBC 16.2 H (3.8-10.6) k/uL RBC 3.75 L (3.80-5.40) m/uL Hgb 11.0 L (11.4-16.0) gm/dL RDW 16.5 H (11.5-15.5) % Neutrophils # 15.1 H (1.3-7.7) k/uL Lymphocytes # 0.2 L (1.0-4.8) k/uL APTT (22.0-30.0) sec ABG pH (7.35-7.45) ABG pCO2 (35-45) mmHg ABG pO2 (83-108) mmHg ABG HCO3 (21-25) mmol/L ABG O2 Saturation (94-97) % Sodium 130 L (137-145) mmol/L Potassium (3.5-5.1) mmol/L Carbon Dioxide 15 L (22-30) mmol/L BUN 47 H (7-17) mg/dL Creatinine 2.54 H (0.52-1.04) mg/dL Glucose 246 H (74-99) mg/dL POC Glucose (mg/dL) 254 H (70-110) mg/dL Phosphorus (2.5-4.5) mg/dL Magnesium (1.6-2.3) mg/dL Alkaline Phosphatase 131 H (38-126) U/L Total Protein 6.0 L (6.3-8.2) g/dL Albumin 3.0 L (3.5-5.0) g/dL Free T4 (0.78-2.19) ng/dL Free T3 pg/mL (2.30-4.20) pg/mL 10/28/23 10/28/23 Range/Units 05:42 08:34 WBC (3.8-10.6) k/uL RBC (3.80-5.40) m/uL Hgb (11.4-16.0) gm/dL RDW (11.5-15.5) % Neutrophils # (1.3-7.7) k/uL Lymphocytes # (1.0-4.8) k/uL APTT (22.0-30.0) sec ABG pH 7.25 L (7.35-7.45) ABG pCO2 (35-45) mmHg ABG pO2 59 L* (83-108) mmHg ABG HCO3 18 L (21-25) mmol/L ABG O2 Saturation 89.8 L (94-97) % Sodium (137-145) mmol/L Potassium (3.5-5.1) mmol/L Carbon Dioxide (22-30) mmol/L BUN (7-17) mg/dL Creatinine (0.52-1.04) mg/dL Glucose (74-99) mg/dL POC Glucose (mg/dL) 168 H (70-110) mg/dL Phosphorus (2.5-4.5) mg/dL Magnesium (1.6-2.3) mg/dL Alkaline Phosphatase (38-126) U/L Total Protein (6.3-8.2) g/dL Albumin (3.5-5.0) g/dL Free T4 (0.78-2.19) ng/dL Free T3 pg/mL (2.30-4.20) pg/mL Assessment and Plan Assessment: 1. Sick sinus syndrome; patient is status post temporary transvenous pacemaker placement 2. Shock/hypotension; cardiogenic versus septic shock -Cardiogenic shock with hypotension seems more likely; patient has been covered empirically with IV antibiotics in form of vancomycin and Zosyn; patient has been pancultured -Patient remains on norepinephrine and vasopressin along with dopamine 3. Acute on chronic kidney disease; likely ATN secondary to hypotension 4. Altered mental status; severe metabolic encephalopathy with possible anoxic brain injury versus possible CVA; neurology is consulted 5. Right lower extremity cellulitis with possible sepsis/septic shock -Patient has been placed on IV Zosyn and vancomycin; patient has been panc ultured 6. History of diabetes mellitus type 2 7. Hyperlipidemia; Lipitor 30 mg daily 8. Hypothyroidism; levothyroxine 175 mcg daily DVT prophylaxis; SCDs for now; await CT of the head to rule out any intracranial pathology before starting systemic anticoagulation CODE STATUS; patient remains full code
[2023-10-28] MEDS: NOREPINEPHRINE 32 MG in SODIUM CHLORIDE 0.9% 218 ML IV SCH (18:09)
--- NOTE | 2023-10-28 22:44 | P.CONS ---
History of Present Illness - Reason for Consult Consult date: 10/28/23 Right leg wound Requesting physician: Parvez Nix - Chief Complaint Weakness and fatigue x 1 day - History of Present Illness Patient is a 68-year-old female past medical history significant for hypertension hyperlipidemia diabetes mellitus depression former smoker patient was brought into the hospital yesterday afternoon for a syncopal episode apparently the patient care home resident and did have a syncopal episode while they also noticed to be hypotensive patient was complaining of feeling drowsy and fatigue at the time of evaluation to the ER physician patient on presentation to the hospital was afebrile subsequently patient was hypothermic with a temperature of 90.4 F this morning the patient is afebrile patient was significantly bradycardia arrhythmic and the patient has been taken to the [facility] with attempted left IJ transvenous pacemaker and left IJ right heart catheterization but failed subsequently patient did have a temporary transvenous pacemaker femoral approach patient has received was hypotensive and received Levophed as well as dopamine patient got intubated and subsequently has been transferred to the ICU patient workup did include a white count of 14 with repeat is 16.2 patient did have a creatinine of 2.54 BUN is 47 liver enzymes are normal did have a positive UA patient did have a chest x-ray on admission moderate cardiomegaly diffuse reticular opacity consider CHF with interstitial edema chest x-ray this morning increased pulm vascular congestion bilateral perihilar infiltrates suggestive of edema superimposed infection cannot excluded patient has been treated with vancomycin and Zosyn infectious was consulted for further management of antibiotic therapy most information has been obtained. Review the chart talking to nursing staff with the patient currently intubated on 9 unable to provide any history patient also noticed to have a right lower extremity wound on presentation the hospital however no history available. The patient does has wound or any drainage Review of Systems Positive points has been mentioned in HPI complete review could not be obtained because patient is intubated on the line Past Medical History Past Medical History: Diabetes Mellitus, Eye Disorder, Hyperlipidemia, Hypertension, Renal Disease, Skin Disorder, Thyroid Disorder Additional Past Medical History / Comment(s): Left shoulder and right hip pain. Kidney Disease - Stage 4-no dialysis,has good urine production.scattered raised lumps-Unknown name of skin disorder. left eye cataract, possible Covid infection Resp 2020-was in respiratory distress in ICU for 1 week History of Any Multi-Drug Resistant Organisms: None Reported Past Surgical History: Section, Tonsillectomy Additional Past Surgical History / Comment(s): "Female surgery, can't remember name of surgery.",left cataract removed,rt eye procedure,failed fistula creation left upper arm procedure 08-11-22 Past Anesthesia/Blood Transfusion Reactions: Previous Problems w/ Anesthesia Additional Past Anesthesia/Blood Transfusion Reaction / Comm: Difficulty urinating after one surgery. no hx blood transfusion Past Psychological History: Depression Smoking Status: Former smoker Past Alcohol Use History: Unable to Obtain Past Drug Use History: Unable to Obtain - Past Family History Mother Family Medical History: No Reported History Additional Family Medical History / Comment(s): Breast CA Sister(s) Family Medical History: Cancer Additional Family Medical History / Comment(s): uterine CA Father Family Medical History: Liver Disease Additional Family Medical History / Comment(s): Alcoholism Medications and Allergies Home Medications Medication Instructions Recorded Confirmed Type Dialyvite 1 tab PO DAILY 08/09/22 10/27/23 History Ergocalciferol [Vitamin D2 (1250 1,250 mcg PO WE 08/09/22 10/27/23 History Mcg = 48110 Iu)] Ferrous Sulfate [Iron] 325 mg PO BID 08/09/22 10/27/23 History Acetaminophen Tab [Tylenol] 650 mg PO Q6H PRN 10/27/23 10/27/23 History Apixaban [Eliquis] 5 mg PO BID 10/27/23 10/27/23 History Atorvastatin [Lipitor] 10 mg PO DAILY 10/27/23 10/27/23 History Atorvastatin [Lipitor] 20 mg PO HS 10/27/23 10/27/23 History Budesonide [Pulmicort] 0.5 mg INHALATION RT-BID 10/27/23 10/27/23 History Bumetanide [Bumex] 1 mg PO DAILY 10/27/23 10/27/23 History Bumetanide [Bumex] 1 mg PO Q48H 10/27/23 10/27/23 History Dulaglutide [Trulicity] 0.75 mg SQ FR 10/27/23 10/27/23 History Famotidine [Pepcid] 10 mg PO DAILY 10/27/23 10/27/23 History Insulin Glargine [Lantus Vial] 10 unit SQ DAILY 10/27/23 10/27/23 History Insulin Lispro [Admelog Solostar] 2 units SQ DAILY@1100 10/27/23 10/27/23 History Insulin Lispro [Admelog Solostar] See Protocol SQ ACHS 10/27/23 10/27/23 History Ipratropium-Albuterol Nebulize 3 ml INHALATION RT-BID 10/27/23 10/27/23 History [Duoneb 0.5 mg-3 mg/3 ml Soln] L.acidoph,Paracasei, B.lactis 1 cap PO DAILY 10/27/23 10/27/23 History [Probiotic] Levothyroxine Sodium [Synthroid] 175 mcg PO DAILY 10/27/23 10/27/23 History Metoprolol Tartrate [Lopressor] 25 mg PO DAILY 10/27/23 10/27/23 History Potassium Chloride ER [K-Dur 20] 20 meq PO Q48H 10/27/23 10/27/23 History Thiamine [Vitamin B-1] 100 mg PO DAILY 10/27/23 10/27/23 History amLODIPine [Norvasc] 10 mg PO DAILY 10/27/23 10/27/23 History sitaGLIPtin [Januvia] 50 mg PO DAILY 10/27/23 10/27/23 History Allergies Allergy/AdvReac Type Severity Reaction Status Date / Time No Known Allergies Allergy Verified 10/27/23 13:37 Physical Exam Vitals: Vital Signs Temp Pulse Resp BP Pulse Ox FiO2 10/28/23 12:00 98.6 F 88 18 97 70 10/28/23 11:57 70 10/28/23 11:45 80 21 97 10/28/23 11:30 79 22 95 10/28/23 11:15 90 26 H 96 10/28/23 11:09 70 10/28/23 11:00 88 19 97 10/28/23 10:45 87 19 97 10/28/23 10:30 86 19 97 10/28/23 10:15 91 26 H 97 10/28/23 10:00 72 18 93 L 10/28/23 09:45 82 18 96 10/28/23 09:30 83 20 98 10/28/23 09:15 81 18 98 10/28/23 09:00 80 23 98 10/28/23 08:45 80 18 98 10/28/23 08:30 81 22 98 10/28/23 08:15 80 22 96 10/28/23 08:00 98.4 F 65 18 96 70 10/28/23 07:52 95 70 10/28/23 07:51 65 10/28/23 07:47 70 10/28/23 07:46 70 10/28/23 07:45 64 33 H 95 10/28/23 07:39 64 10/28/23 07:30 64 17 95 10/28/23 07:15 65 16 95 10/28/23 07:00 66 21 95 10/28/23 06:45 67 18 94 L 10/28/23 06:30 70 24 94 L 10/28/23 06:15 65 18 94 L 10/28/23 06:07 80 10/28/23 06:00 98.6 F 76 20 95 80 10/28/23 05:45 80 20 91 L 10/28/23 05:30 85 20 92 L 10/28/23 05:15 87 20 98 10/28/23 05:00 87 20 94 L 10/28/23 04:45 88 21 95 10/28/23 04:30 96 23 95 10/28/23 04:15 89 24 95 10/28/23 04:01 50 10/28/23 04:00 97.5 F L 88 20 94 L 50 10/28/23 03:45 87 21 94 L 10/28/23 03:30 92 20 95 10/28/23 03:15 89 21 95 10/28/23 03:00 90 20 95 10/28/23 02:45 86 21 95 10/28/23 02:30 86 23 96 10/28/23 02:15 86 24 96 10/28/23 02:00 93 20 96 10/28/23 01:45 92 20 97 10/28/23 01:30 91 24 97 10/28/23 01:15 90 21 97 10/28/23 01:00 93 21 97 10/28/23 00:45 85 21 96 10/28/23 00:30 84 20 96 10/28/23 00:15 84 20 96 10/28/23 00:00 93.2 F L 85 20 97 50 10/27/23 23:45 84 20 97 10/27/23 23:41 82 20 97 10/27/23 23:30 81 20 98 10/27/23 23:15 85 21 98 10/27/23 23:00 90.4 F L 80 24 118/44 98 10/27/23 22:45 82 20 98 10/27/23 22:30 88 24 97 10/27/23 22:15 84 16 99 10/27/23 22:00 85 16 99 10/27/23 21:45 83 16 99 10/27/23 21:30 81 16 99 10/27/23 21:15 84 18 99 10/27/23 21:00 82 21 99 50 10/27/23 20:45 81 16 10/27/23 20:30 82 16 118/44 10/27/23 20:15 80 17 50 10/27/23 20:00 80 16 100 10/27/23 19:47 80 16 10/27/23 19:45 81 16 10/27/23 19:43 50 10/27/23 19:38 81 16 10/27/23 19:30 82 17 95/59 10/27/23 19:15 6 L 95/59 10/27/23 19:05 83 16 10/27/23 19:00 84 16 95/59 10/27/23 18:55 84 16 10/27/23 18:50 84 16 10/27/23 18:45 84 16 10/27/23 18:40 82 16 102/43 100 10/27/23 18:35 81 16 76/47 10/27/23 18:34 100 10/27/23 18:31 100 10/27/23 18:30 91.0 F L 79 13 72/46 10/27/23 16:35 61 20 94/54 92 L 10/27/23 16:00 67 20 74/33 91 L 10/27/23 15:30 64 20 79/39 92 L 10/27/23 14:58 63 20 78/39 94 L 10/27/23 14:31 71 22 88/51 96 10/27/23 13:45 20 L 20 10/27/23 13:18 53 L 16 116/95 99 10/27/23 13:15 97.1 F L Intake and Output 10/27/23 10/28/23 10/28/23 22:59 06:59 14:59 Intake Total 117.714 8330.404 729.041 Output Total 215 62 125 Balance 034.327 3551.404 604.041 Intake: IV 179 944 358 0.9 ART Line 9 24 18 0.9 Sheath 60 160 120 Piperacillin-Tazobactam 3 100 100 .375 gm In Sodium Chloride 0.9% 100 ml @ 25 mls/hr IVPB Q12H [facility] Rx# :[id number] Sodium Chloride 0.9% 1, 60 160 120 000 ml @ 20 mls/hr IV . Q24H [facility] Rx#:[id number] Vancomycin 2,000 mg In 500 Sodium Chloride 0.9% 500 ml 500 ml @ 167 mls/hr IVPB ONCE ONE Rx#: [id number] Intake, IV Titration 650.981 914.404 311.041 Amount DOPamine DRIP 800 mg In 419.141 391.074 Dextrose/Water 1 250ml. bag @ 5 MCG/KG/MIN 12.757 mls/hr IV .Q13A60N [facility] Rx#:[id number] Norepinephrine 32 mg In 155.023 197.101 210.496 Sodium Chloride 0.9% 218 ml @ 0.03 MCG/KG/MIN 1. 914 mls/hr IV .Q24H [facility] Rx#:[id number] propofoL 1,000 mg In 76.817 326.229 100.545 Empty Bag 1 bag @ 15 MCG/ KG/MIN 12.247 mls/hr IV . Q8H10M [facility] Rx#:[id number] Oral 60 Output: Urine 215 62 125 Other: Voiding Method Indwelling Catheter Indwelling Catheter Indwelling Catheter Weight 136.078 kg 126.8 kg ABP, PAP, CO, CI - Last 8 Hours Arterial Blood Pressure 122/50 Arterial Blood Pressure 129/50 Arterial Blood Pressure 117/48 Arterial Blood Pressure 110/46 Arterial Blood Pressure 117/47 Arterial Blood Pressure 117/46 Arterial Blood Pressure 117/47 Arterial Blood Pressure 116/47 Arterial Blood Pressure 102/45 Arterial Blood Pressure 124/49 Arterial Blood Pressure 115/43 Arterial Blood Pressure 115/43 Arterial Blood Pressure 115/43 Arterial Blood Pressure 119/44 Arterial Blood Pressure 114/43 Arterial Blood Pressure 106/39 Arterial Blood Pressure 110/40 Arterial Blood Pressure 112/41 Arterial Blood Pressure 108/41 Arterial Blood Pressure 111/42 Arterial Blood Pressure 113/42 Arterial Blood Pressure 114/48 Arterial Blood Pressure 112/50 Arterial Blood Pressure 109/47 Arterial Blood Pressure 114/50 Arterial Blood Pressure 115/50 Arterial Blood Pressure 115/52 Arterial Blood Pressure 115/51 Arterial Blood Pressure 116/51 Arterial Blood Pressure 118/52 Arterial Blood Pressure 120/54 GENERAL DESCRIPTION: Elderly female intubated on the vent HEENT: Shows Pallor , no scleral icterus. Oral mucous membrane is dry. NECK: Trachea central, no thyromegaly. LUNGS: Unlabored breathing. Decreased breath sounds at the base HEART: S1, S2, regular rate and rhythm. No loud murmur ABDOMEN: Soft, no tenderness , guarding or rigidity, no organomegaly EXTREMITIES: Diffuse swelling to bilateral lower extremity and did have a wound no purulent drainage SKIN: No rash, no masses palpable. NEUROLOGICAL: The patient is sedated on the vent Results CBC & Chem 7: 10/28/23 05:10 10/28/23 05:10 Labs: Abnormal Lab Results - Last 24 Hours (Table) 10/27/23 10/27/23 10/27/23 Range/Units 13:59 13:59 13:59 WBC (3.8-10.6) k/uL RBC 3.78 L (3.80-5.40) m/uL Hgb 11.2 L (11.4-16.0) gm/dL RDW 16.8 H (11.5-15.5) % Neutrophils # (1.3-7.7) k/uL Lymphocytes # 0.6 L (1.0-4.8) k/uL APTT 35.2 H (22.0-30.0) sec ABG pH (7.35-7.45) ABG pCO2 (35-45) mmHg ABG pO2 (83-108) mmHg ABG HCO3 (21-25) mmol/L ABG O2 Saturation (94-97) % Sodium 132 L (137-145) mmol/L Potassium 5.4 H (3.5-5.1) mmol/L Carbon Dioxide 20 L (22-30) mmol/L BUN 46 H (7-17) mg/dL Creatinine 2.40 H (0.52-1.04) mg/dL Glucose (74-99) mg/dL POC Glucose (mg/dL) (70-110) mg/dL Phosphorus (2.5-4.5) mg/dL Magnesium 2.4 H (1.6-2.3) mg/dL Alkaline Phosphatase 128 H (38-126) U/L Total Protein (6.3-8.2) g/dL Albumin 3.3 L (3.5-5.0) g/dL Free T4 2.76 H (0.78-2.19) ng/dL Free T3 pg/mL 1.50 L (2.30-4.20) pg/mL 10/27/23 10/27/23 10/27/23 Range/Units 18:23 19:03 19:03 WBC 14.0 H (3.8-10.6) k/uL RBC (3.80-5.40) m/uL Hgb (11.4-16.0) gm/dL RDW 16.7 H (11.5-15.5) % Neutrophils # 12.8 H (1.3-7.7) k/uL Lymphocytes # 0.5 L (1.0-4.8) k/uL APTT (22.0-30.0) sec ABG pH (7.35-7.45) ABG pCO2 (35-45) mmHg ABG pO2 (83-108) mmHg ABG HCO3 (21-25) mmol/L ABG O2 Saturation (94-97) % Sodium 130 L (137-145) mmol/L Potassium (3.5-5.1) mmol/L Carbon Dioxide 18 L (22-30) mmol/L BUN 45 H (7-17) mg/dL Creatinine 2.37 H (0.52-1.04) mg/dL Glucose 276 H (74-99) mg/dL POC Glucose (mg/dL) 168 H (70-110) mg/dL Phosphorus 5.0 H (2.5-4.5) mg/dL Magnesium 2.4 H (1.6-2.3) mg/dL Alkaline Phosphatase 159 H (38-126) U/L Total Protein (6.3-8.2) g/dL Albumin (3.5-5.0) g/dL Free T4 (0.78-2.19) ng/dL Free T3 pg/mL (2.30-4.20) pg/mL 10/27/23 10/28/23 10/28/23 Range/Units 19:28 00:38 00:39 WBC (3.8-10.6) k/uL RBC (3.80-5.40) m/uL Hgb (11.4-16.0) gm/dL RDW (11.5-15.5) % Neutrophils # (1.3-7.7) k/uL Lymphocytes # (1.0-4.8) k/uL APTT (22.0-30.0) sec ABG pH 7.23 L (7.35-7.45) ABG pCO2 48 H (35-45) mmHg ABG pO2 262 H (83-108) mmHg ABG HCO3 20 L (21-25) mmol/L ABG O2 Saturation 100.1 H (94-97) % Sodium (137-145) mmol/L Potassium (3.5-5.1) mmol/L Carbon Dioxide (22-30) mmol/L BUN (7-17) mg/dL Creatinine (0.52-1.04) mg/dL Glucose (74-99) mg/dL POC Glucose (mg/dL) 331 H 361 H (70-110) mg/dL Phosphorus (2.5-4.5) mg/dL Magnesium (1.6-2.3) mg/dL Alkaline Phosphatase (38-126) U/L Total Protein (6.3-8.2) g/dL Albumin (3.5-5.0) g/dL Free T4 (0.78-2.19) ng/dL Free T3 pg/mL (2.30-4.20) pg/mL 10/28/23 10/28/23 10/28/23 Range/Units 05:08 05:10 05:10 WBC 16.2 H (3.8-10.6) k/uL RBC 3.75 L (3.80-5.40) m/uL Hgb 11.0 L (11.4-16.0) gm/dL RDW 16.5 H (11.5-15.5) % Neutrophils # 15.1 H (1.3-7.7) k/uL Lymphocytes # 0.2 L (1.0-4.8) k/uL APTT (22.0-30.0) sec ABG pH (7.35-7.45) ABG pCO2 (35-45) mmHg ABG pO2 (83-108) mmHg ABG HCO3 (21-25) mmol/L ABG O2 Saturation (94-97) % Sodium 130 L (137-145) mmol/L Potassium (3.5-5.1) mmol/L Carbon Dioxide 15 L (22-30) mmol/L BUN 47 H (7-17) mg/dL Creatinine 2.54 H (0.52-1.04) mg/dL Glucose 246 H (74-99) mg/dL POC Glucose (mg/dL) 254 H (70-110) mg/dL Phosphorus (2.5-4.5) mg/dL Magnesium (1.6-2.3) mg/dL Alkaline Phosphatase 131 H (38-126) U/L Total Protein 6.0 L (6.3-8.2) g/dL Albumin 3.0 L (3.5-5.0) g/dL Free T4 (0.78-2.19) ng/dL Free T3 pg/mL (2.30-4.20) pg/mL 10/28/23 10/28/23 10/28/23 Range/Units 05:42 08:34 11:44 WBC (3.8-10.6) k/uL RBC (3.80-5.40) m/uL Hgb (11.4-16.0) gm/dL RDW (11.5-15.5) % Neutrophils # (1.3-7.7) k/uL Lymphocytes # (1.0-4.8) k/uL APTT (22.0-30.0) sec ABG pH 7.25 L (7.35-7.45) ABG pCO2 (35-45) mmHg ABG pO2 59 L* (83-108) mmHg ABG HCO3 18 L (21-25) mmol/L ABG O2 Saturation 89.8 L (94-97) % Sodium (137-145) mmol/L Potassium (3.5-5.1) mmol/L Carbon Dioxide (22-30) mmol/L BUN (7-17) mg/dL Creatinine (0.52-1.04) mg/dL Glucose (74-99) mg/dL POC Glucose (mg/dL) 168 H 215 H (70-110) mg/dL Phosphorus (2.5-4.5) mg/dL Magnesium (1.6-2.3) mg/dL Alkaline Phosphatase (38-126) U/L Total Protein (6.3-8.2) g/dL Albumin (3.5-5.0) g/dL Free T4 (0.78-2.19) ng/dL Free T3 pg/mL (2.30-4.20) pg/mL Assessment and Plan (1) Sepsis Current Visit: Yes Status: Acute Code(s): A41.9 - SEPSIS, UNSPECIFIED ORGANISM SNOMED Code(s): 31918965 (2) UTI (urinary tract infection) Current Visit: Yes Status: Acute Code(s): N39.0 - URINARY TRACT INFECTION, SITE NOT SPECIFIED SNOMED Code(s): 35166698 (3) Leg wound, right Current Visit: Yes Status: Acute Code(s): S81.801A - UNSPECIFIED OPEN WOUND, RIGHT LOWER LEG, INITIAL ENCOUNTER SNOMED Code(s): 47849210321216077 Plan: 1patient presented to hospital with syncopal episode in this patient who did have a features of slow/sepsis and the patient was noted to be significantly hypothermic hypotensive requiring pressor support also have elevated white count patient did have a significantly positive UA concerning for possible component of UTI and right leg cellulitis clinically not behaving as pneumonia with the abnormality seen on chest x-ray more likely due to her kim arrhythmia 2-patient with renal insufficiency high risk of nephrotoxicity 3-we will continue patient on Zosyn however switch vancomycin to daptomycin to decrease risk for nephrotoxicity 4-local wound care to the right lower extremity wound with a dry Aquacel dressing followed by Ray wrap change every 48 hour We will follow on clinical condition and cultures to further adjust medication if needed Thank you for this consultation we will follow the patient along with you Dictation was produced using [employer] dictation software. please excuse any grammatical, word or spelling errors. Time with Patient: Greater than 30
[2023-10-29 00:13] LABS: Glucose,Whole Blood 133 mg/dL (70-110)
[2023-10-29 05:27] LABS: ABG Base Excess -5.8 mmol/L; ABG HCO3 19 mmol/L (21-25); ABG Oxygen Saturation 97.3 % (94-97); ABG PCO2 36 mmHg (35-45); ABG PH 7.34 (7.35-7.45); ABG PO2 84 mmHg (83-108); ABG TCO2 21 mmol/L (19-24)
[2023-10-29 06:57] LABS: Glucose,Whole Blood 126 mg/dL (70-110)
[2023-10-29] MEDS ORDERED: CHLORHEXIDINE GLUCONATE 15 ML CUP MUCOUS MEM ONE ×2 (08:18→21:31)
[2023-10-29] MEDS ORDERED: PANTOPRAZOLE 40 MG/10 ML VIAL ONE (08:18)
[2023-10-29] MEDS ORDERED: SODIUM CHLORIDE 0.9% 100 ML ONE ×2 (08:19→22:30)
[2023-10-29] MEDS ORDERED: PIPERACILLIN-TAZOBACTAM 3.375 GM VIAL ONE ×2 (08:19→22:30)
[2023-10-29] MEDS ORDERED: THIAMINE 100 MG TAB ONE (08:19)
[2023-10-29] MEDS ORDERED: EMPTY BAG 1 BAG ONE ×3 (08:20→21:17)
[2023-10-29] MEDS ORDERED: propofoL 100 ML IV ONE ×3 (08:20→21:17)
[2023-10-29] MEDS ORDERED: DAPTOmycin 350 MG in SODIUM CHLORIDE 0.9% 50 ML IVPB SCH (09:00)
[2023-10-29 12:04] LABS: Glucose,Whole Blood 136 mg/dL (70-110)
[2023-10-29] MEDS ORDERED: INSULIN ASPART (NovoLOG) 100 UNIT/ML VIAL SQ ONE (12:24)
[2023-10-29 13:14] LABS: Glucose,Whole Blood 116 mg/dL (70-110)
[2023-10-29 17:34] LABS: Glucose,Whole Blood 109 mg/dL (70-110)
[2023-10-29] MEDS ORDERED: BUDESONIDE 0.5 MG/2 ML NEBU ONE (19:44)
[2023-10-29] MEDS ORDERED: IPRATROPIUM-ALBUTEROL 3 ML NEB ONE (19:44)
[2023-10-29] MEDS ORDERED: ATORVASTATIN 20 MG TAB ONE (21:31)
[2023-10-29] MEDS ORDERED: VASOPRESSIN 20 UNIT/ML 1 ML VIAL ONE (23:59)
[2023-10-29] MEDS ORDERED: LEVOTHYROXINE 88 MCG TAB ONE (23:59)
[2023-10-29] MEDS ORDERED: SODIUM CHLORIDE 0.9% 50 ML BAG ONE (23:59)
[2023-10-29] MEDS ORDERED: SODIUM CHLORIDE 0.9% 100 ML BAG ONE (23:59)
[2023-10-29] MEDS ORDERED: DAPTOmycin 500 MG VIAL ONE (23:59)
[2023-10-30 00:37] LABS: Glucose,Whole Blood 106 mg/dL (70-110)
[2023-10-30] MEDS ORDERED: ZINC OXIDE PASTE (Z-GUARD) 1 APPLIC TOPICAL ONE ×2 (02:49)
[2023-10-30] MEDS ORDERED: propofoL 100 ML IV ONE ×4 (03:14→21:05)
[2023-10-30] MEDS ORDERED: EMPTY BAG 1 BAG ONE ×2 (03:14→21:05)
[2023-10-30] MEDS ORDERED: BUDESONIDE 0.5 MG/2 ML NEBU ONE ×2 (07:50→19:59)
[2023-10-30] MEDS ORDERED: IPRATROPIUM-ALBUTEROL 3 ML NEB ONE ×2 (07:50→19:59)
[2023-10-30] MEDS ORDERED: CHLORHEXIDINE GLUCONATE 15 ML CUP MUCOUS MEM ONE ×2 (09:50→21:13)
[2023-10-30] MEDS ORDERED: PANTOPRAZOLE 40 MG/10 ML VIAL ONE (09:50)
[2023-10-30] MEDS ORDERED: PIPERACILLIN-TAZOBACTAM 3.375 GM VIAL ONE ×2 (09:51→22:33)
[2023-10-30] MEDS ORDERED: SODIUM BICARB 8.4% 50 ML SYR (1 MEQ/ML) ONE ×2 (09:51)
[2023-10-30] MEDS ORDERED: THIAMINE 100 MG TAB ONE (09:51)
[2023-10-30] MEDS ORDERED: SODIUM CHLORIDE 0.9% 100 ML ONE ×2 (09:51→22:33)
[2023-10-30 12:00] LABS: Glucose,Whole Blood 142 mg/dL (70-110)
[2023-10-30 17:31] LABS: Glucose,Whole Blood 115 mg/dL (70-110)
[2023-10-30] MEDS ORDERED: ATORVASTATIN 20 MG TAB ONE (21:13)
[2023-10-30] MEDS ORDERED: SODIUM BICARBONATE TAB 650 MG TAB ONE (22:33)
[2023-10-30] MEDS ORDERED: DEXTROSE 5% IN WATER 1,000 ML BAG ONE (23:59)
[2023-10-30] MEDS ORDERED: LEVOTHYROXINE 88 MCG TAB ONE (23:59)
[2023-10-30] MEDS ORDERED: SODIUM BICARB 8.4% 50 ML VIAL (1 MEQ/ML) ONE (23:59)
[2023-10-30] MEDS ORDERED: SODIUM CHLORIDE 0.9% 1,000 ML BAG ONE (23:59)
[2023-10-30] MEDS ORDERED: SODIUM CHLORIDE 0.9% 100 ML BAG ONE (23:59)
[2023-10-31 00:11] LABS: Glucose,Whole Blood 109 mg/dL (70-110)
[2023-10-31] MEDS ORDERED: propofoL 100 ML IV ONE ×3 (02:02→17:36)
[2023-10-31] MEDS ORDERED: EMPTY BAG 1 BAG ONE ×3 (02:02→17:36)
[2023-10-31] MEDS ORDERED: IPRATROPIUM-ALBUTEROL 3 ML NEB ONE ×2 (07:40→20:10)
[2023-10-31] MEDS ORDERED: BUDESONIDE 0.5 MG/2 ML NEBU ONE ×2 (07:40→19:45)
[2023-10-31] MEDS ORDERED: PANTOPRAZOLE 40 MG/10 ML VIAL ONE (09:48)
[2023-10-31] MEDS ORDERED: CHLORHEXIDINE GLUCONATE 15 ML CUP MUCOUS MEM ONE ×2 (09:49→20:56)
[2023-10-31] MEDS ORDERED: PIPERACILLIN-TAZOBACTAM 3.375 GM VIAL ONE ×2 (09:49→22:08)
[2023-10-31] MEDS ORDERED: THIAMINE 100 MG TAB ONE (09:49)
[2023-10-31] MEDS ORDERED: SODIUM CHLORIDE 0.9% 100 ML ONE ×2 (09:49→22:08)
[2023-10-31] MEDS ORDERED: FUROSEMIDE 10 MG/ML 10 ML VIAL ONE ×4 (10:30→18:32)
[2023-10-31 11:47] LABS: Glucose,Whole Blood 115 mg/dL (70-110)
[2023-10-31 17:55] LABS: Glucose,Whole Blood 123 mg/dL (70-110)
[2023-10-31 20:30] LABS: Glucose,Whole Blood 134 mg/dL (70-110)
[2023-10-31] MEDS ORDERED: ATORVASTATIN 20 MG TAB ONE (20:56)
[2023-10-31] MEDS ORDERED: SODIUM BICARBONATE TAB 650 MG TAB ONE (20:56)
[2023-10-31] MEDS ORDERED: SODIUM CHLORIDE 0.9% 50 ML BAG ONE (23:59)
[2023-10-31] MEDS ORDERED: INSULIN ASPART (NovoLOG) 100 UNIT/ML VIAL SQ ONE (23:59)
[2023-10-31] MEDS ORDERED: DAPTOmycin 500 MG VIAL ONE (23:59)
[2023-10-31] MEDS ORDERED: SODIUM CHLORIDE 0.9% 100 ML BAG ONE (23:59)
[2023-10-31] MEDS ORDERED: DEXTROSE 5% IN WATER 1,000 ML BAG ONE (23:59)
[2023-10-31] MEDS ORDERED: LEVOTHYROXINE 88 MCG TAB ONE (23:59)
[2023-10-31] MEDS ORDERED: SODIUM BICARB 8.4% 50 ML VIAL (1 MEQ/ML) ONE (23:59)
[2023-11-01 00:47] LABS: Glucose,Whole Blood 136 mg/dL (70-110)
[2023-11-01] MEDS ORDERED: EMPTY BAG 1 BAG ONE ×2 (01:30→07:07)
[2023-11-01] MEDS ORDERED: propofoL 100 ML IV ONE ×2 (01:30→07:07)
[2023-11-01 06:31] LABS: Glucose,Whole Blood 120 mg/dL (70-110)
[2023-11-01] MEDS ORDERED: POTASSIUM BICARBONATE/CIT AC 20 MEQ TABLET.EFF ONE (06:32)
[2023-11-01] MEDS ORDERED: DOPamine DRIP 250 ML IV ONE ×2 (07:05)
[2023-11-01] MEDS ORDERED: FUROSEMIDE 10 MG/ML 10 ML VIAL ONE ×6 (08:50→21:30)
[2023-11-01] MEDS ORDERED: PANTOPRAZOLE 40 MG/10 ML VIAL ONE (09:44)
[2023-11-01] MEDS ORDERED: THIAMINE 100 MG TAB ONE (09:45)
[2023-11-01] MEDS ORDERED: CHLORHEXIDINE GLUCONATE 15 ML CUP MUCOUS MEM ONE ×2 (09:45→21:11)
[2023-11-01 11:09] LABS: Glucose,Whole Blood 132 mg/dL (70-110)
[2023-11-01] MEDS ORDERED: SODIUM CHLORIDE 0.9% 100 ML ONE ×2 (11:45→21:12)
[2023-11-01] MEDS ORDERED: PIPERACILLIN-TAZOBACTAM 3.375 GM VIAL ONE ×2 (11:45→21:12)
[2023-11-01 17:13] LABS: Glucose,Whole Blood 88 mg/dL (70-110)
[2023-11-01] MEDS ORDERED: BUDESONIDE 0.5 MG/2 ML NEBU ONE (19:45)
[2023-11-01] MEDS ORDERED: ATORVASTATIN 20 MG TAB ONE (21:12)
[2023-11-01] MEDS ORDERED: SODIUM BICARBONATE TAB 650 MG TAB ONE (21:22)
[2023-11-01] MEDS ORDERED: SODIUM CHLORIDE 0.9% 100 ML BAG IV ONE (23:59)
[2023-11-01] MEDS ORDERED: SODIUM CHLORIDE 0.9% 1,000 ML BAG ONE (23:59)
[2023-11-01] MEDS ORDERED: LEVOTHYROXINE 88 MCG TAB ONE (23:59)
[2023-11-02 00:50] LABS: Glucose,Whole Blood 83 mg/dL (70-110)
[2023-11-02] MEDS ORDERED: BUDESONIDE 0.5 MG/2 ML NEBU ONE ×2 (07:54→19:38)
[2023-11-02] MEDS ORDERED: IPRATROPIUM-ALBUTEROL 3 ML NEB ONE ×2 (07:54→19:38)
[2023-11-02] MEDS ORDERED: DAPTOmycin 500 MG VIAL ONE ×2 (08:00→23:59)
[2023-11-02] MEDS ORDERED: LEVOTHYROXINE 88 MCG TAB ONE (08:00)
[2023-11-02] MEDS ORDERED: DARBEPOETIN ALFA 40 MCG/0.4 ML SYRINGE ONE (08:00)
[2023-11-02] MEDS ORDERED: SODIUM CHLORIDE 0.9% 50 ML BAG ONE ×2 (08:00→23:59)
[2023-11-02] MEDS ORDERED: FERROUS SULFATE ORAL ELIXIR 300 MG/5 ML CUP ONE (08:00)
[2023-11-02] MEDS ORDERED: SODIUM CHLORIDE 0.9% 100 ML BAG IV ONE (08:00)
[2023-11-02] MEDS ORDERED: PANTOPRAZOLE 40 MG/10 ML VIAL ONE (09:11)
[2023-11-02] MEDS ORDERED: THIAMINE 100 MG TAB ONE (09:11)
[2023-11-02] MEDS ORDERED: SODIUM BICARBONATE TAB 650 MG TAB ONE ×2 (09:14→20:59)
[2023-11-02] MEDS ORDERED: LEVOTHYROXINE 75 MCG TAB ONE (09:15)
[2023-11-02] MEDS ORDERED: LEVOTHYROXINE 25 MCG TAB ONE (09:15)
[2023-11-02] MEDS ORDERED: FUROSEMIDE 10 MG/ML 10 ML VIAL ONE ×4 (09:19→20:59)
[2023-11-02] MEDS ORDERED: HEPARIN SOD,PORK IN 0.45% NACL 250 ML IV ONE (10:05)
[2023-11-02] MEDS ORDERED: POTASSIUM CHLORIDE 100 ML IVPB ONE (11:25)
[2023-11-02] MEDS ORDERED: PIPERACILLIN-TAZOBACTAM 3.375 GM VIAL ONE ×2 (11:30→23:30)
[2023-11-02 13:37] LABS: Glucose,Whole Blood 72 mg/dL (70-110)
[2023-11-02 17:32] LABS: Glucose,Whole Blood 81 mg/dL (70-110)
[2023-11-02] MEDS ORDERED: ATORVASTATIN 20 MG TAB ONE (20:59)
[2023-11-02] MEDS ORDERED: SODIUM CHLORIDE 0.9% 100 ML ONE (23:30)
[2023-11-02] MEDS ORDERED: SODIUM CHLORIDE 0.9% 100 ML BAG ONE (23:59)
[2023-11-03 00:24] LABS: Glucose,Whole Blood 69 mg/dL (70-110)
[2023-11-03] MEDS ORDERED: DEXTROSE 50% SYRINGE 50 ML IVP ONE ×2 (00:27→08:00)
[2023-11-03 00:57] LABS: Glucose,Whole Blood 98 mg/dL (70-110)
[2023-11-03 06:19] LABS: Glucose,Whole Blood 69 mg/dL (70-110)
[2023-11-03] MEDS ORDERED: HEPARIN SODIUM 1,000 UN/ML (10ML VL) ONE ×3 (06:36→23:29)
[2023-11-03 06:45] LABS: Glucose,Whole Blood 97 mg/dL (70-110)
[2023-11-03] MEDS ORDERED: IPRATROPIUM-ALBUTEROL 3 ML NEB ONE ×3 (07:34→20:10)
[2023-11-03] MEDS ORDERED: BUDESONIDE 0.5 MG/2 ML NEBU ONE ×2 (07:34→20:10)
[2023-11-03] MEDS ORDERED: LEVOTHYROXINE 88 MCG TAB ONE (08:00)
[2023-11-03] MEDS ORDERED: FERROUS SULFATE ORAL ELIXIR 300 MG/5 ML CUP ONE (08:00)
[2023-11-03] MEDS ORDERED: SODIUM CHLORIDE 0.9% 100 ML BAG ONE (08:00)
[2023-11-03] MEDS ORDERED: HEPARIN SOD,PORK IN 0.45% NACL 250 ML IV ONE ×2 (10:19→12:48)
[2023-11-03] MEDS ORDERED: PIPERACILLIN-TAZOBACTAM 3.375 GM VIAL ONE ×2 (10:25→23:30)
[2023-11-03] MEDS ORDERED: THIAMINE 100 MG TAB ONE (10:25)
[2023-11-03] MEDS ORDERED: SODIUM CHLORIDE 0.9% 100 ML ONE (10:25)
[2023-11-03] MEDS ORDERED: PANTOPRAZOLE 40 MG/10 ML VIAL ONE (10:25)
[2023-11-03] MEDS ORDERED: SODIUM BICARBONATE TAB 650 MG TAB ONE ×2 (10:27→21:43)
[2023-11-03] MEDS ORDERED: FUROSEMIDE 10 MG/ML 10 ML VIAL ONE ×4 (10:28→21:42)
[2023-11-03 11:49] LABS: Glucose,Whole Blood 71 mg/dL (70-110)
[2023-11-03 12:35] LABS: Glucose,Whole Blood 94 mg/dL (70-110)
[2023-11-03 17:24] LABS: Glucose,Whole Blood 85 mg/dL (70-110)
[2023-11-03] MEDS ORDERED: ATORVASTATIN 20 MG TAB ONE (21:43)
[2023-11-04 00:27] LABS: Glucose,Whole Blood 88 mg/dL (70-110)
[2023-11-04 06:12] LABS: Glucose,Whole Blood 75 mg/dL (70-110)
[2023-11-04] MEDS ORDERED: BUDESONIDE 0.5 MG/2 ML NEBU ONE ×2 (07:20→19:07)
[2023-11-04] MEDS ORDERED: IPRATROPIUM-ALBUTEROL 3 ML NEB ONE ×2 (07:20→19:07)
[2023-11-04] MEDS ORDERED: SODIUM CHLORIDE 0.9% 100 ML BAG IV ONE (08:00)
[2023-11-04] MEDS ORDERED: FERROUS SULFATE ORAL ELIXIR 300 MG/5 ML CUP ONE (08:00)
[2023-11-04] MEDS ORDERED: LEVOTHYROXINE 88 MCG TAB ONE (08:00)
[2023-11-04] MEDS ORDERED: DAPTOmycin 500 MG VIAL ONE (09:00)
[2023-11-04] MEDS ORDERED: SODIUM CHLORIDE 0.9% 50 ML BAG ONE (09:00)
[2023-11-04] MEDS ORDERED: FUROSEMIDE 10 MG/ML 10 ML VIAL ONE ×2 (10:25)
[2023-11-04] MEDS ORDERED: THIAMINE 100 MG TAB ONE (10:25)
[2023-11-04] MEDS ORDERED: PANTOPRAZOLE 40 MG/10 ML VIAL ONE (10:25)
[2023-11-04] MEDS ORDERED: PIPERACILLIN-TAZOBACTAM 3.375 GM VIAL ONE ×2 (10:25→20:53)
[2023-11-04] MEDS ORDERED: HEPARIN SOD,PORK IN 0.45% NACL 250 ML IV ONE (11:21)
[2023-11-04 11:45] LABS: Glucose,Whole Blood 79 mg/dL (70-110)
[2023-11-04 16:00] LABS: Glucose,Whole Blood 79 mg/dL (70-110)
[2023-11-04] MEDS ORDERED: ATORVASTATIN 20 MG TAB ONE (20:53)
[2023-11-05] MEDS ORDERED: ACETAMINOPHEN TAB 325 MG TAB ONE (03:59)
[2023-11-05] MEDS ORDERED: HEPARIN SOD,PORK IN 0.45% NACL 250 ML IV ONE (05:23)
[2023-11-05] MEDS ORDERED: BUDESONIDE 0.5 MG/2 ML NEBU ONE (07:26)
[2023-11-05] MEDS ORDERED: IPRATROPIUM-ALBUTEROL 3 ML NEB ONE ×2 (07:26→19:06)
[2023-11-05] MEDS ORDERED: PANTOPRAZOLE 40 MG/10 ML VIAL ONE (08:51)
[2023-11-05] MEDS ORDERED: FUROSEMIDE 10 MG/ML 10 ML VIAL ONE ×2 (08:51)
[2023-11-05] MEDS ORDERED: THIAMINE 100 MG TAB ONE (08:52)
[2023-11-05] MEDS ORDERED: SODIUM CHLORIDE 0.9% 100 ML BAG IV ONE (09:00)
[2023-11-05] MEDS ORDERED: LEVOTHYROXINE 88 MCG TAB ONE (09:00)
[2023-11-05] MEDS ORDERED: POTASSIUM CHLORIDE 100 ML IVPB ONE ×3 (11:22→14:15)
[2023-11-05] MEDS ORDERED: APIXABAN 5 MG TAB ONE ×4 (11:22→22:53)
[2023-11-05] MEDS ORDERED: FERROUS SULFATE 325 MG TAB PO ONE ×2 (11:22→18:10)
[2023-11-05 11:53] LABS: Glucose,Whole Blood 80 mg/dL (70-110)
[2023-11-05] MEDS ORDERED: PIPERACILLIN-TAZOBACTAM 3.375 GM VIAL ONE ×3 (13:34→22:40)
[2023-11-05 17:36] LABS: Glucose,Whole Blood 82 mg/dL (70-110)
[2023-11-05] MEDS ORDERED: ATORVASTATIN 20 MG TAB ONE ×2 (22:40→22:53)
[2023-11-06 00:58] LABS: Glucose,Whole Blood 86 mg/dL (70-110)
[2023-11-06] MEDS ORDERED: IPRATROPIUM-ALBUTEROL 3 ML NEB ONE (07:54)
[2023-11-06] MEDS ORDERED: SODIUM CHLORIDE 0.9% 50 ML BAG ONE (08:00)
[2023-11-06] MEDS ORDERED: SODIUM CHLORIDE 0.9% 100 ML BAG IV ONE (08:00)
[2023-11-06] MEDS ORDERED: DAPTOmycin 500 MG VIAL ONE (08:00)
[2023-11-06] MEDS ORDERED: LEVOTHYROXINE 88 MCG TAB ONE (08:00)
[2023-11-06] MEDS ORDERED: PANTOPRAZOLE 40 MG/10 ML VIAL ONE (10:18)
[2023-11-06] MEDS ORDERED: THIAMINE 100 MG TAB ONE (10:18)
[2023-11-06] MEDS ORDERED: FERROUS SULFATE 325 MG TAB PO ONE ×2 (10:19→21:06)
[2023-11-06] MEDS ORDERED: APIXABAN 5 MG TAB ONE ×2 (10:20→21:07)
[2023-11-06] MEDS ORDERED: PIPERACILLIN-TAZOBACTAM 3.375 GM VIAL ONE ×2 (13:53→21:07)
[2023-11-06] MEDS ORDERED: ATORVASTATIN 20 MG TAB ONE (21:07)
[2023-11-07] MEDS ORDERED: IPRATROPIUM-ALBUTEROL 3 ML NEB ONE ×2 (03:03→18:38)
[2023-11-07] MEDS ORDERED: PANTOPRAZOLE 40 MG/10 ML VIAL ONE (07:51)
[2023-11-07] MEDS ORDERED: FERROUS SULFATE 325 MG TAB PO ONE (07:52)
[2023-11-07] MEDS ORDERED: THIAMINE 100 MG TAB ONE (07:52)
[2023-11-07] MEDS ORDERED: APIXABAN 5 MG TAB ONE (07:52)
[2023-11-07] MEDS ORDERED: POTASSIUM CHLORIDE 100 ML ONE ×2 (10:03→12:19)
[2023-11-07] MEDS ORDERED: PIPERACILLIN-TAZOBACTAM 3.375 GM VIAL ONE (11:04)
[2023-11-07 11:33] LABS: Glucose,Whole Blood 102 mg/dL (70-110)
[2023-11-07 16:51] LABS: Glucose,Whole Blood 72 mg/dL (70-110)
[2023-11-07] MEDS ORDERED: DEXTROSE 50% SYRINGE 50 ML IVP ONE (17:28)
[2023-11-07] MEDS ORDERED: BUDESONIDE 0.5 MG/2 ML NEBU ONE (18:38)
[2023-11-08] MEDS ORDERED: FERROUS SULFATE 325 MG TAB PO ONE ×3 (00:26→20:17)
[2023-11-08] MEDS ORDERED: APIXABAN 5 MG TAB ONE ×3 (00:26→20:17)
[2023-11-08] MEDS ORDERED: PIPERACILLIN-TAZOBACTAM 3.375 GM VIAL ONE ×3 (00:28→23:15)
[2023-11-08] MEDS ORDERED: HYDROcodone/APAP 5-325MG 1 EACH TAB ONE (00:48)
[2023-11-08] MEDS ORDERED: IPRATROPIUM-ALBUTEROL 3 ML NEB ONE (04:56)
[2023-11-08] MEDS ORDERED: THIAMINE 100 MG TAB ONE (10:43)
[2023-11-08] MEDS ORDERED: PANTOPRAZOLE 40 MG/10 ML VIAL ONE (10:45)
[2023-11-08] MEDS ORDERED: ATORVASTATIN 20 MG TAB ONE (20:17)
[2023-11-08] MEDS ORDERED: SODIUM CHLORIDE 0.9% 100 ML BAG ONE (23:59)
[2023-11-08] MEDS ORDERED: INSULIN ASPART (NovoLOG) 100 UNIT/ML VIAL SQ ONE (23:59)
[2023-11-08] MEDS ORDERED: LEVOTHYROXINE 88 MCG TAB ONE (23:59)
[2023-11-09] MEDS ORDERED: THIAMINE 100 MG TAB ONE (07:40)
[2023-11-09] MEDS ORDERED: APIXABAN 5 MG TAB ONE ×2 (07:40→20:02)
[2023-11-09] MEDS ORDERED: PANTOPRAZOLE 40 MG/10 ML VIAL ONE (07:40)
[2023-11-09] MEDS ORDERED: TORSEMIDE 20 MG TAB ONE (07:41)
[2023-11-09] MEDS ORDERED: FERROUS SULFATE 325 MG TAB PO ONE ×2 (07:42→20:02)
[2023-11-09] MEDS ORDERED: PIPERACILLIN-TAZOBACTAM 3.375 GM VIAL ONE ×3 (12:39→20:02)
[2023-11-09] MEDS ORDERED: IPRATROPIUM-ALBUTEROL 3 ML NEB ONE ×2 (18:15→18:16)
[2023-11-09] MEDS ORDERED: BUDESONIDE 0.5 MG/2 ML NEBU ONE (18:15)
[2023-11-09] MEDS ORDERED: ATORVASTATIN 20 MG TAB ONE (20:02)
[2023-11-10] MEDS ORDERED: IPRATROPIUM-ALBUTEROL 3 ML NEB ONE (04:08)
[2023-11-10] MEDS ORDERED: PANTOPRAZOLE 40 MG/10 ML VIAL ONE (09:25)
[2023-11-10] MEDS ORDERED: TORSEMIDE 20 MG TAB ONE (09:25)
[2023-11-10] MEDS ORDERED: THIAMINE 100 MG TAB ONE (09:25)
[2023-11-10] MEDS ORDERED: FERROUS SULFATE 325 MG TAB PO ONE ×2 (09:25→22:53)
[2023-11-10] MEDS ORDERED: APIXABAN 5 MG TAB ONE ×2 (09:25→22:53)
[2023-11-10] MEDS ORDERED: PIPERACILLIN-TAZOBACTAM 3.375 GM VIAL ONE ×2 (14:20→22:53)
[2023-11-10] MEDS ORDERED: ATORVASTATIN 20 MG TAB ONE (22:53)
[2023-11-11] MEDS ORDERED: BUDESONIDE 0.5 MG/2 ML NEBU ONE (07:20)
[2023-11-11] MEDS ORDERED: IPRATROPIUM-ALBUTEROL 3 ML NEB ONE (07:20)
[2023-11-11] MEDS ORDERED: PANTOPRAZOLE 40 MG/10 ML VIAL ONE (09:28)
[2023-11-11] MEDS ORDERED: APIXABAN 5 MG TAB ONE ×2 (09:28→21:08)
[2023-11-11] MEDS ORDERED: THIAMINE 100 MG TAB ONE (09:28)
[2023-11-11] MEDS ORDERED: PIPERACILLIN-TAZOBACTAM 3.375 GM VIAL ONE ×2 (15:06→23:55)
[2023-11-11] MEDS ORDERED: FERROUS SULFATE 325 MG TAB PO ONE (21:08)
[2023-11-11] MEDS ORDERED: ATORVASTATIN 20 MG TAB ONE (21:08)
[2023-11-12] MEDS ORDERED: IPRATROPIUM-ALBUTEROL 3 ML NEB ONE ×2 (06:21→17:40)
[2023-11-12] MEDS ORDERED: PANTOPRAZOLE 40 MG/10 ML VIAL ONE (08:01)
[2023-11-12] MEDS ORDERED: THIAMINE 100 MG TAB ONE (08:01)
[2023-11-12] MEDS ORDERED: FERROUS SULFATE 325 MG TAB PO ONE ×2 (08:06→20:56)
[2023-11-12] MEDS ORDERED: APIXABAN 5 MG TAB ONE ×2 (08:06→20:55)
[2023-11-12] MEDS ORDERED: ACETAMINOPHEN TAB 325 MG TAB ONE (10:41)
--- NOTE | 2023-11-12 12:32 | XR ---
EXAMINATION TYPE: XR chest 1V portable DATE OF EXAM: 10/29/2023 5:10 AM CLINICAL INDICATION: Female, 68 years old with history of Tube placement; [facility] COMPARISON: Chest radiographs from 10/28/2023 TECHNIQUE: XR chest 1V portable Frontal view of the chest. FINDINGS: Lungs/Pleura: There is no evidence of pleural effusion, focal consolidation, or pneumothorax. Pulmonary vascularity: Unremarkable. Heart/mediastinum: Cardiomediastinal silhouette is unremarkable. Musculoskeletal: No acute osseous pathology. Other findings: None Lines/Tubes: Endotracheal tube with distal tip 5.9 cm above the milad. Nasogastric tube with its distal tip and side-port projecting under the diaphragm. IMPRESSION: 1. Endotracheal nasogastric tubes in appropriate position. 2. Cardiomegaly and mild pulmonary vascular congestion. Correlate with BNP for congestive heart fail ure.
[2023-11-12] MEDS ORDERED: ATORVASTATIN 20 MG TAB ONE (20:55)
[2023-11-12] MEDS ORDERED: TORSEMIDE 20 MG TAB ONE (23:59)
[2023-11-12] MEDS ORDERED: LEVOTHYROXINE 88 MCG TAB ONE (23:59)
[2023-11-13] MEDS ORDERED: IPRATROPIUM-ALBUTEROL 3 ML NEB ONE (05:28)
[2023-11-13] MEDS ORDERED: APIXABAN 5 MG TAB ONE ×2 (09:38→22:24)
[2023-11-13] MEDS ORDERED: FERROUS SULFATE 325 MG TAB PO ONE ×2 (09:38→22:24)
[2023-11-13] MEDS ORDERED: THIAMINE 100 MG TAB ONE (09:38)
[2023-11-13] MEDS ORDERED: PANTOPRAZOLE 40 MG/10 ML VIAL ONE (09:39)
[2023-11-13] MEDS ORDERED: ATORVASTATIN 20 MG TAB ONE (22:24)
[2023-11-14] MEDS ORDERED: IPRATROPIUM-ALBUTEROL 3 ML NEB ONE (05:39)
[2023-11-14] MEDS ORDERED: FERROUS SULFATE 325 MG TAB PO ONE ×2 (08:10→19:59)
[2023-11-14] MEDS ORDERED: PANTOPRAZOLE 40 MG/10 ML VIAL ONE (08:10)
[2023-11-14] MEDS ORDERED: APIXABAN 5 MG TAB ONE ×2 (08:10→19:59)
[2023-11-14] MEDS ORDERED: THIAMINE 100 MG TAB ONE (08:10)
[2023-11-14] MEDS ORDERED: ATORVASTATIN 20 MG TAB ONE (19:59)
[2023-11-15] MEDS ORDERED: APIXABAN 5 MG TAB ONE ×2 (10:55→21:09)
[2023-11-15] MEDS ORDERED: THIAMINE 100 MG TAB ONE (10:55)
[2023-11-15] MEDS ORDERED: PANTOPRAZOLE 40 MG/10 ML VIAL ONE (10:55)
[2023-11-15] MEDS ORDERED: FERROUS SULFATE 325 MG TAB PO ONE ×2 (10:56→21:10)
[2023-11-15] MEDS ORDERED: IPRATROPIUM-ALBUTEROL 3 ML NEB ONE (19:39)
[2023-11-15] MEDS ORDERED: BUDESONIDE 0.5 MG/2 ML NEBU ONE (19:39)
[2023-11-15] MEDS ORDERED: ATORVASTATIN 20 MG TAB ONE (21:09)
[2023-11-15] MEDS ORDERED: TORSEMIDE 20 MG TAB ONE (23:59)
[2023-11-16] MEDS ORDERED: APIXABAN 5 MG TAB ONE ×2 (10:32→20:55)
[2023-11-16] MEDS ORDERED: PANTOPRAZOLE 40 MG/10 ML VIAL ONE (10:32)
[2023-11-16] MEDS ORDERED: THIAMINE 100 MG TAB ONE (10:33)
[2023-11-16] MEDS ORDERED: FERROUS SULFATE 325 MG TAB PO ONE ×2 (10:33→20:56)
--- NOTE | 2023-11-16 15:52 | PN ---
PROGRESS NOTE DATE OF SERVICE: 11/04/2023 LOCATION: 253 in the ICU. REASON FOR FOLLOWUP: Sepsis, UTI, right lower extremity cellulitis. INTERVAL HISTORY: The patient is afebrile. The patient is hemodynamically stable. She is breathing comfortably on nasal cannula oxygen. Slightly sleepy, but arousable. Denies any chest pain or cough. No abdominal pain or any worsening pain to the right leg. PHYSICAL EXAMINATION: VITAL SIGNS: Her blood pressure 125/45 with a pulse of 78, temperature 97, she is 94% on 4 L nasal cannula. GENERAL DESCRIPTION: This is an elderly female, lying in bed, in no distress. RESPIRATORY SYSTEM: Unlabored breathing. Clear to auscultation anteriorly. HEART: S1 and S2. Regular rate and rhythm. ABDOMEN: Soft. No tenderness. EXTREMITIES: Right leg is currently dressed. No drainage on the dressing. LABORATORY DATA: Her creatinine is 2.78. White count is 7.28. Cultures currently pending. DIAGNOSTIC IMPRESSION AND PLAN: The patient admitted to hospital with sepsis, concerning for possible aspiration pneumonia, urinary tract infection , and there was concern for right lower extremity wound and cellulitis. The patient is broadly covered with Zosyn, daptomycin, to try to obtain culture results and monitor clinical course closely. MMODL / IJN: [id number] /
--- NOTE | 2023-11-16 15:52 | PN ---
Date of service is 11/05/2023. PROGRESS NOTE LOCATION: [facility], ICU. REASON FOR FOLLOWUP: Sepsis, UTI, and right lower extremity wound and cellulitis. INTERVAL HISTORY: Patient is afebrile. Patient is currently breathing comfortably. Patient is hemodynamically stable, not requiring any pressor support. No chest pain, shortness of breath or cough. No abdominal pain. Did have one loose stool today. PHYSICAL EXAMINATION: VITAL SIGNS: Blood pressure 135/60 with a pulse of 90, temperature 98. GENERAL DESCRIPTION: This is an elderly female lying in bed, in no distress. RESPIRATORY SYSTEM: Unlabored breathing, decreased breath sounds. No wheeze. HEART: S1, S2. Regular rate and rhythm. ABDOMEN: Soft. No tenderness. EXTREMITIES: Right leg wound is currently dressed. LABORATORY DATA: Reviewed. DIAGNOSTIC IMPRESSION AND PLAN: Patient admitted to the hospital with sepsis, concern for possible urinary tract infection with concern for pneumonia and right leg wound and cellulitis. The patient has shown clinical improvement. Cultures so far negative for any resistant pathogen. The patient is on Zosyn, which can be discontinued and monitor clinical course closely. MMODL / IJN: [id number] / MTDD
--- NOTE | 2023-11-16 15:53 | PN ---
PROGRESS NOTE DATE OF SERVICE: 11/07/2023 LOCATION: 253. REASON FOR FOLLOWUP: UTI, pneumonia, right leg wound and cellulitis. INTERVAL HISTORY: The patient is afebrile. The patient is currently breathing comfortably on 2 L cannula oxygen. The patient denies having any chest pain, shortness of breath, or any worsening cough. No abdominal pain. No diarrhea or pain to the right leg wound. PHYSICAL EXAMINATION: VITAL SIGNS: Blood pressure 123/97, pulse of 87, temperature 98. She is 95% on 2 L nasal cannula. GENERAL DESCRIPTION: This is an elderly female, lying in bed, in no distress. RESPIRATORY SYSTEM: Unlabored breathing, decreased breath sounds on the bases. No wheeze. HEART: S1, S2. Regular rate and rhythm. ABDOMEN: Soft, no tenderness. EXTREMITIES: Right leg wound is currently dressed. No drainage on the dressing. DIAGNOSTIC IMPRESSION AND PLAN: The patient was admitted to hospital with initial concern for sepsis, possibly related to the pneumonia, urinary tract infection as well as right leg wound with concern for secondary cellulitis. The patient is currently on Zosyn, some clinical improvement, to continue and monitor clinical course closely. MMODL / IJN: [id number] /
--- NOTE | 2023-11-16 15:53 | PN ---
Date of service is 11/06/2023 PROGRESS NOTE REASON FOR FOLLOWUP: Pneumonia, UTI, and right leg wound. INTERVAL HISTORY: The patient is afebrile. The patient is breathing comfortably on nasal cannula oxygen. Denies any chest pain or shortness of breath. She did have congested cough, not bringing up any sputum. No abdominal pain or pain to right lower extremity. PHYSICAL EXAMINATION: VITAL SIGNS: Blood pressure 136/59, pulse of 64, temperature is 97.8. GENERAL DESCRIPTION: This is an elderly female up in the bed, in no distress. RESPIRATORY SYSTEM: Unlabored breathing, decreased breath sounds in the bases. No wheeze. HEART: S1, S2, regular rate and rhythm. ABDOMEN: Soft, no tenderness. EXTREMITIES: Right leg wound is currently dressed. No drainage on dressing. LABS: Culture negative so far. DIAGNOSTIC IMPRESSION AND PLAN: The patient admitted to hospital with sepsis, concerning for UTI, pneumonia, and also right lower extremity wound with cellulitis. At this time, will continue the patient on Zosyn, discontinue daptomycin and monitor clinical course closely. MMODL / IJN: [id number] / MTDD
--- NOTE | 2023-11-16 15:54 | PN ---
Date of service is 11/08/2023 PROGRESS NOTE LOCATION: [facility]. REASON FOR FOLLOWUP: Pneumonia, UTI, and right leg wound and cellulitis. INTERVAL HISTORY: The patient is afebrile. The patient has been moved out of the ICU. The patient is currently breathing comfortably. Denies any chest pain or shortness of breath. Occasional cough. No abdominal pain. No diarrhea or pain to the right lower extremity. PHYSICAL EXAMINATION: VITAL SIGNS: Blood pressure 150/72 with a pulse of 66, temperature is 97.5, she is 96% on room air. GENERAL DESCRIPTION: This is an elderly female, lying in bed, in no distress. RESPIRATORY SYSTEM: Unlabored breathing, decreased breath sounds on the bases. No wheeze. HEART: S1, S2. Regular rate and rhythm. ABDOMEN: Soft, no tenderness. DIAGNOSTIC IMPRESSION AND PLAN: The patient initially admitted to hospital with sepsis, multifactorial, possible component of pneumonia, urinary tract infection and right leg wound cellulitis. The patient is covered with Zosyn, to continue and continue local wound care as ordered, monitor clinical course closely. MMODL / IJN: [id number] / MTDD
--- NOTE | 2023-11-16 15:55 | PN ---
PROGRESS NOTE DATE OF SERVICE: 11/09/2023 LOCATION: 418. REASON FOR FOLLOWUP: Pneumonia, right lower extremity wound and cellulitis. INTERVAL HISTORY: The patient is afebrile. The patient is currently breathing comfortably on nasal cannula oxygen. The patient denies having any chest pain or shortness of breath. Did have a cough, not bringing up any sputum. No abdominal pain. No diarrhea. PHYSICAL EXAMINATION: VITAL SIGNS: Blood pressure 154/71, pulse of 89, temperature of 98, she is 98% on room air. GENERAL DESCRIPTION: This is an elderly female lying in bed, in no distress. RESPIRATORY SYSTEM: Unlabored breathing, decreased breath sounds on the bases. No wheeze. HEART: S1, S2. Regular rate and rhythm. ABDOMEN: Soft. No tenderness. EXTREMITIES: Right leg wound is currently dressed, no drainage on the dressing. LABORATORY DATA: Creatinine is 2.27. White count is 5.57. DIAGNOSTIC IMPRESSION AND PLAN: The patient initially presented to hospital with sepsis, concern likely for possible pneumonia, urinary tract infection, and right lower extremity wound and cellulitis. Overall improvement on Zosyn, to continue while inpatient, and monitor clinical course closely. MMODL / IJN: [id number] /
--- NOTE | 2023-11-16 15:55 | PN ---
PROGRESS NOTE DATE OF SERVICE: 11/10/2023 LOCATION: 418. REASON FOR FOLLOWUP: Pneumonia, UTI, and right leg wound and cellulitis. INTERVAL HISTORY: The patient is afebrile. She is currently breathing comfortably on room air. Denies any chest pain or shortness of breath. Occasional cough. No nausea, vomiting, abdominal pain, or diarrhea. PHYSICAL EXAMINATION: VITAL SIGNS: Blood pressure 140/66, pulse of 73, temperature 98.5. GENERAL DESCRIPTION: This is an elderly female lying in bed, in no distress. RESPIRATORY SYSTEM: Unlabored breathing. Clear to auscultation anteriorly. HEART: S1, S2. Regular rate and rhythm. ABDOMEN: Soft. No tenderness. EXTREMITIES: Right leg wound is currently dressed. There is no drainage on the dressing. LABORATORY DATA: White count is 5.4. Creatinine is 2.27. DIAGNOSTIC IMPRESSION AND PLAN: The patient was admitted to the hospital with sepsis concerning for pneumonia, UTI, as well as right leg wound and cellulitis. Has shown overall improvement on Zosyn, which can be discontinued on discharge as the patient received adequate antibiotic therapy for underlying infection. MMODL / IJN: [id number] /
--- NOTE | 2023-11-16 15:55 | PN ---
Date of service is 11/11/2023 PROGRESS NOTE LOCATION: [facility]. REASON FOR FOLLOWUP: Pneumonia, UTI, and right leg wound and cellulitis. INTERVAL HISTORY: The patient is afebrile. The patient is breathing comfortably. Denies any chest pain or shortness of breath. Occasional cough. No abdominal pain or pain to the right leg wound. PHYSICAL EXAMINATION: VITAL SIGNS: Blood pressure 159/85, pulse 65, temperature 97.8. GENERAL DESCRIPTION: This is an elderly female lying in bed, in no distress. RESPIRATORY SYSTEM: Unlabored breathing. Clear to auscultation anteriorly. HEART: S1, S2. Regular rate and rhythm. ABDOMEN: Soft. No tenderness. EXTREMITIES: Right leg wound is currently dressed. There is no drainage on the dressing. LABORATORY DATA: White count 5.57, creatinine 2.27. DIAGNOSTIC IMPRESSION AND PLAN: The patient was admitted to the hospital with sepsis. Source was likely pneumonia, UTI, right leg wound cellulitis. The patient has received adequate antibiotic, currently on Zosyn, this can be discontinued on discharge. Local wound care to the right leg to continue as ordered. Monitor the clinical course closely. MMODL / IJN: [id number] / MTDTamara
--- NOTE | 2023-11-16 15:56 | PN ---
Date of service is 11/12/2023 PROGRESS NOTE LOCATION: [facility]. REASON FOR FOLLOWUP: Pneumonia, UTI, and right leg wound and cellulitis. INTERVAL HISTORY: The patient is afebrile. The patient is breathing comfortably. No chest pain or shortness of breath. Occasional cough. No abdominal pain. No diarrhea. No pain to the right lower extremity wound. PHYSICAL EXAMINATION: VITAL SIGNS: Blood pressure 170/93, pulse of 80, temperature 97.9. GENERAL DESCRIPTION: This is an elderly female, lying in bed, in no distress. RESPIRATORY SYSTEM: Unlabored breathing. Clear to auscultation anteriorly. HEART: S1, S2. Regular rate and rhythm. ABDOMEN: Soft, no tenderness. EXTREMITIES: Right leg wound is currently dressed. No drainage on the dressing. DIAGNOSTIC IMPRESSION AND PLAN: The patient was initially admitted to the hospital with sepsis, source likely pneumonia, UTI and there was right lower extremity wound and cellulitis. The patient has received adequate antibiotic therapy. We will go ahead and discontinue Zosyn. Monitor the patient closely off antibiotic. Local wound care to the right leg wound with dry Aquacel soft dressing. Keep the right heel wound off pressure to prevent any further worsening also discussed with the nursing staff. MMODL / IJN: [id number] / NISHA
--- NOTE | 2023-11-16 15:57 | PN ---
PROGRESS NOTE DATE OF SERVICE: 11/14/2023 LOCATION: 480. REASON FOR FOLLOWUP: Pneumonia, UTI, and right leg wound cellulitis. INTERVAL HISTORY: The patient is afebrile. Apparently, the patient did have significant mental status changes, has been refusing her care, per sitter at the bedside. The patient did respond to her name; however, did not answer any questions. No vomiting or diarrhea has been reported. PHYSICAL EXAMINATION: VITAL SIGNS: Blood pressure 188/88 with a pulse of 91, temperature 98.1. She is 95% on 3 L nasal cannula. GENERAL DESCRIPTION: This is an elderly female, lying in bed, in no distress. RESPIRATORY SYSTEM: Unlabored breathing. Decreased breath sounds in the bases. No wheeze. HEART: S1, S2. Regular rate and rhythm. ABDOMEN: Soft, no tenderness. EXTREMITIES: Right leg wound is currently dressed. No drainage on the dressing. DIAGNOSTIC IMPRESSION AND PLAN: The patient admitted to the hospital with sepsis, source of pneumonia, UTI and also concern for right leg wound cellulitis, has been on adequate antibiotic. Local wound care tonight. Continue with Aquacel dressing. Monitor the patient closely off antibiotic. MMODL / IJN: [id number] / MTDD
--- NOTE | 2023-11-16 15:57 | PN ---
PROGRESS NOTE DATE OF SERVICE: 11/13/2023 This document has been redictated DENNY / IJN: [id number] / MTDD
--- NOTE | 2023-11-16 15:57 | PN ---
PROGRESS NOTE DATE OF SERVICE: 11/13/2023 LOCATION: 480. REASON FOR FOLLOWUP: Pneumonia, UTI, and right leg wound cellulitis. INTERVAL HISTORY: The patient is afebrile. The patient is breathing comfortably on nasal cannula oxygen. Currently, some mental status changes have been reported by the family at the bedside and are keeping her oxygen on. The patient denies any chest pain or cough. No abdominal pain. No pain to the right leg wound. PHYSICAL EXAMINATION: VITAL SIGNS: Stable. GENERAL DESCRIPTION: This is an elderly female, lying in bed, in no distress. RESPIRATORY SYSTEM: Unlabored breathing. Clear to auscultation anteriorly. HEART: S1, S2. Regular rate. ABDOMEN: Soft, no tenderness. EXTREMITIES: Right leg wound is currently dressed. DIAGNOSTIC IMPRESSION AND PLAN: The patient with initial presentation to hospital with sepsis, concerning for pneumonia, UTI, right leg wound cellulitis. The patient received adequate antibiotic therapy, currently being monitored closely off antibiotic and continue supportive care. MMODL / IJN: [id number] /
--- NOTE | 2023-11-16 15:58 | PN ---
PROGRESS NOTE DATE OF SERVICE: 11/15/2023 LOCATION: 480. REASON FOR FOLLOWUP: Pneumonia, UTI, and right leg wound. INTERVAL HISTORY: The patient is afebrile. Apparently, the patient did have mental status changes, refusing her care, needs a sitter at the bedside. The patient denies any chest pain, no cough. Still has the nasal cannula oxygen. No vomiting or diarrhea has been reported by the sitter at the bedside. PHYSICAL EXAMINATION: VITAL SIGNS: Blood pressure 114/70 with a pulse of 89, temperature 98.6. She is 87% on 3 L nasal cannula. GENERAL DESCRIPTION: This is an elderly female, lying in bed, in no distress. RESPIRATORY SYSTEM: Unlabored breathing, decreased breath sounds in the bases. No wheeze. HEART: S1, S2. Regular rate and rhythm. ABDOMEN: Soft, no tenderness. EXTREMITIES: Right leg wound is currently dressed. LABORATORY DATA: Creatinine is 2.31. DIAGNOSTIC IMPRESSION AND PLAN: The patient with admission to hospital with sepsis secondary to likely pneumonia, UTI, and did have a right leg wound cellulitis. Has received adequate antibiotic, currently monitor closely off antibiotic. Local wound care to the right leg with Aquacel Silver dressing. Monitor clinical course closely. MMODL / IJN: [id number] / NISHA
[2023-11-16] MEDS ORDERED: IPRATROPIUM-ALBUTEROL 3 ML NEB ONE (19:36)
[2023-11-16] MEDS ORDERED: ATORVASTATIN 20 MG TAB ONE (20:55)
[2023-11-16] MEDS ORDERED: TORSEMIDE 20 MG TAB ONE (23:59)
[2023-11-16] MEDS ORDERED: DARBEPOETIN ALFA 40 MCG/0.4 ML SYRINGE ONE (23:59)
[2023-11-17] MEDS ORDERED: PANTOPRAZOLE 40 MG/10 ML VIAL ONE (07:47)
[2023-11-17] MEDS ORDERED: APIXABAN 5 MG TAB ONE ×2 (07:47→21:41)
[2023-11-17] MEDS ORDERED: FERROUS SULFATE 325 MG TAB PO ONE ×2 (07:48→21:41)
[2023-11-17] MEDS ORDERED: THIAMINE 100 MG TAB ONE (07:48)
[2023-11-17] MEDS ORDERED: TORSEMIDE 20 MG TAB ONE (07:48)
[2023-11-17] MEDS ORDERED: POTASSIUM CHLORIDE ER 20 MEQ TAB.ER PO ONE (14:44)
[2023-11-17] MEDS ORDERED: ATORVASTATIN 20 MG TAB ONE (21:41)
--- NOTE | 2023-11-18 01:10 | PN ---
PROGRESS NOTE DATE OF SERVICE: 11/16/2023 LOCATION: 480. REASON FOR FOLLOWUP: Right leg wound cellulitis. INTERVAL HISTORY: The patient is afebrile. The patient is more awake and alert today. She is breathing comfortably. Denies any chest pain or shortness of breath, no abdominal pain or pain right leg wound. PHYSICAL EXAMINATION: VITAL SIGNS: Blood pressure 164/77 with a pulse of 88, temperature 98.1. She is 95% on 2 L nasal cannula. GENERAL DESCRIPTION: The patient is an elderly female, lying in bed, in no distress. RESPIRATORY SYSTEM: Unlabored breathing. Decreased breath sounds in the bases. No wheeze. HEART: S1, S2. Regular rate and rhythm. ABDOMEN: Soft. EXTREMITIES: The right leg wound is currently dressed. No drainage on the dressing. DIAGNOSTIC IMPRESSION AND PLAN: Patient with initial admission to hospital with sepsis. Source was likely component of pneumonia, UTI, and right leg wound cellulitis, has received adequate antibiotic, currently being monitored closely off antibiotic. Local wound care to continue with Aquacel Silver dressing. Daughter at the bedside. Questions were answered. MMODL / IJN: [id number] / NISHA
[2023-11-18 04:00] LABS: African American GFR (CKD) 22 (>60 ml/min/1.73 sqM); Anion Gap 0 mmol/L; Blood Urea Nitrogen 24 mg/dL (7-17); Carbon Dioxide 31 mmol/L (22-30); Chloride 110 mmol/L (98-107); Glucose 94 mg/dL (74-99); Magnesium 1.6 mg/dL (1.6-2.3); Non-African American GFR(CKD) 19 (>60 ml/min/1.73 sqM); Potassium 3.2 mmol/L (3.5-5.1); Sodium 141 mmol/L (137-145)
[2023-11-18 04:11] LABS: Anisocytosis Slight; Basophils # (A) 0.1 k/uL (0-0.2); Basophils % (A) 2 %; Eosinophils # (A) 0.2 k/uL (0-0.7); Eosinophils % (A) 6 %; HCT 31.8 % (34.0-46.0); HGB 9.9 gm/dL (11.4-16.0); Hypochromasia Marked; Lymphocytes # (A) 0.9 k/uL (1.0-4.8); Lymphocytes % (A) 24 %; MCH 29.6 pg (25.0-35.0); MCHC 31.2 g/dL (31.0-37.0); MCV 95.1 fL (80.0-100.0); Mean Platelet Volume 7.9; Monocytes # (A) 0.3 k/uL (0-1.0); Monocytes % (A) 7 %; Neutrophils # (A) 2.2 k/uL (1.3-7.7); Neutrophils % (A) 59 %; Platelet Count 272 k/uL (150-450); RBC 3.34 m/uL (3.80-5.40); RDW 17.3 % (11.5-15.5); WBC 3.8 k/uL (3.8-10.6)
[2023-11-18 05:51] LABS: Glucose,Whole Blood 95 mg/dL (70-110)
[2023-11-18] MEDS: TORSEMIDE 20 MG TAB PO SCH (11:03)
[2023-11-18] MEDS: POTASSIUM BICARBONATE/CIT AC 20 MEQ TABLET.EFF PO ONE (11:03)
[2023-11-18] MEDS: ZINC OXIDE PASTE (Z-GUARD) 1 APPLIC TOPICAL SCH (11:03)
[2023-11-18] MEDS: APIXABAN 5 MG TAB PO SCH (11:03)
[2023-11-18] MEDS: FERROUS SULFATE 325 MG TAB PO SCH (11:04)
--- NOTE | 2023-11-18 11:33 | P.PN ---
Subjective Patient is seen in follow-up for acute kidney injury and chronic kidney disease. Renal function fairly stable. On D5W. Sodium level 141 today. Oral intake fair. Nonoliguric. Vital signs are stable. General: No acute distress. HEENT: Head exam is unremarkable. On nasal cannula. LUNGS: No audible rhonchi or wheezes. HEART: Rate and Rhythm are regular. ABDOMEN: Obese, nontender. EXTREMITITES: Trace edema. Objective - Vital Signs Vital signs: Vital Signs Temp 97.5 F L 11/18/23 07:27 Pulse 87 11/18/23 07:27 Resp 18 11/18/23 07:27 BP 138/81 11/18/23 07:27 Pulse Ox 93 L 11/18/23 08:20 FiO2 60 10/29/23 04:22 Intake & Output 11/17/23 11/18/23 11/18/23 18:59 06:59 18:59 Other: Voiding Method Indwelling Catheter ABP, PAP, CO, CI - Last Documented Arterial Blood Pressure 137/52 - Labs CBC & Chem 7: 11/18/23 02:12 11/18/23 02:21 Labs: Abnormal Lab Results - Last 24 Hours (Table) 11/18/23 11/18/23 Range/Units 02:12 02:21 RBC 3.34 L (3.80-5.40) m/uL Hgb 9.9 L (11.4-16.0) gm/dL Hct 31.8 L (34.0-46.0) % RDW 17.3 H (11.5-15.5) % Lymphocytes # 0.9 L (1.0-4.8) k/uL Potassium 3.2 L (3.5-5.1) mmol/L Chloride 110 H (98-107) mmol/L Carbon Dioxide 31 H (22-30) mmol/L BUN 24 H (7-17) mg/dL Creatinine 2.54 H (0.52-1.04) mg/dL Assessment and Plan Plan: Assessment: 1. Chronic kidney disease stage IV. Creatinine fairly stable at 2.53. 2. Volume overload. On torsemide. Improved. 3. Sepsis secondary to pneumonia and cellulitis. s/p antibiotics. 4. Hypernatremia from lack of oral water intake and free water diuresis. Improved with D5W. 5. Anemia of chronic kidney disease maintained on Aranesp. 6. Hypokalemia from diuresis. Plan: Maintain torsemide. Replace potassium. Check iron studies. Avoid nephrotoxins. Encouraged oral intake. Continue to monitor renal function and urine output.
[2023-11-18] MEDS: HYDROcodone/APAP 5-325MG 1 EACH TAB ONE (11:53)
--- NOTE | 2023-11-18 11:56 | P.PN ---
Subjective Progress Note Date: 11/18/23 The patient is seen today November 18, 2023 in follow-up on the regular medical floor. She is currently awake and alert in no acute distress. 2 L/min per nasal cannula. She is afebrile. Hemodynamically stable. 272. Sodium 141. Potassium 3.2. Bicarb 31. BUN 24. Creatinine 2.54. Glucose 94. She is continued on DuoNeb inhalations. Completed antibiotics. Remains anticoagulated with Eliquis. Objective - Vital Signs Vital signs: Vital Signs Temp 97.5 F L 11/18/23 07:27 Pulse 87 11/18/23 07:27 Resp 18 11/18/23 07:27 BP 138/81 11/18/23 07:27 Pulse Ox 93 L 11/18/23 08:20 FiO2 60 10/29/23 04:22 Intake & Output 11/17/23 11/18/23 11/18/23 18:59 06:59 18:59 Other: Voiding Method Indwelling Catheter ABP, PAP, CO, CI - Last Documented Arterial Blood Pressure 137/52 - Exam GENERAL EXAM: Alert, obese, 68-year-old female, on 2 L nasal cannula, comfortable in no apparent distress. HEAD: Normocephalic. EYES: Normal reaction of pupils, equal size. NOSE: Clear with pink turbinates. THROAT: No erythema or exudates. NECK: No masses, no JVD. CHEST: No chest wall deformity. LUNGS: Equal air entry with no crackles, wheeze, rhonchi or dullness. CVS: S1 and S2 normal with no audible murmur, regular rhythm. ABDOMEN: No hepatosplenomegaly, normal bowel sounds, no guarding or rigidity. SPINE: No scoliosis or deformity SKIN: No rashes CENTRAL NERVOUS SYSTEM: No focal deficits, tone is normal in all 4 extremities. EXTREMITIES: There is no peripheral edema. No clubbing, no cyanosis. Peripheral pulses are intact. - Labs CBC & Chem 7: 11/18/23 02:12 11/18/23 02:21 Labs: Abnormal Lab Results - Last 24 Hours (Table) 11/18/23 11/18/23 Range/Units 02:12 02:21 RBC 3.34 L (3.80-5.40) m/uL Hgb 9.9 L (11.4-16.0) gm/dL Hct 31.8 L (34.0-46.0) % RDW 17.3 H (11.5-15.5) % Lymphocytes # 0.9 L (1.0-4.8) k/uL Potassium 3.2 L (3.5-5.1) mmol/L Chloride 110 H (98-107) mmol/L Carbon Dioxide 31 H (22-30) mmol/L BUN 24 H (7-17) mg/dL Creatinine 2.54 H (0.52-1.04) mg/dL Assessment and Plan Assessment: Assessment: Acute hypoxic respiratory failure secondary to suspected aspiration pneumonia Cellulitis of the right lower extremity Peripheral vascular occlusive disease Hypertension Diabetes mellitus Hyperlipidemia Acute on chronic kidney disease Plan: The patient was seen and evaluated Labs and medications reviewed Completed antibiotics Continue bronchodilators Titrate down the FiO2 as tolerated Awaiting ECF placement Nephrology is following We will continue to follow I have personally seen and examined the patient, performed the documentation and the assessment and plan as written. Number of minutes spent on the visit: 10.
[2023-11-18 11:58] LABS: Glucose,Whole Blood 132 mg/dL (70-110)
[2023-11-18] MEDS: PIPERACILLIN-TAZOBACTAM 3.375 GM VIAL ONE (12:00)
[2023-11-18] MEDS: FERROUS SULFATE 325 MG TAB PO ONE ×8 (12:01→12:08)
[2023-11-18] MEDS: APIXABAN 5 MG TAB ONE ×8 (12:01→12:08)
[2023-11-18] MEDS: ERGOCALCIFEROL 1,250 MCG (50,000 IU) CAPSULE PO SCH (12:05)
[2023-11-18] MEDS: DARBEPOETIN ALFA 40 MCG/0.4 ML SYRINGE SQ SCH (12:09)
[2023-11-18] MEDS: Potassium Replacement Protocol 1 EACH MISC MISCELLANE ONE (12:10)
[2023-11-18] MEDS: DEXTROSE 5% IN WATER 1,000 ML IV SCH (12:24)
--- NOTE | 2023-11-18 12:51 | P.PN ---
Subjective addendum: Please note Electronic system was down up to 11/17/2023 and everything was documented on paper chart. Per records: 68-year-old female presenting to the emergency department with syncopal episodes. Episode started within the last hour. Patient comes from intermediate and had a syncopal episode there. There is questionable hypotension. Patient did have 1 syncopal episode by EMS and was drowsy several times however blood pressure they obtained was not hypotensive. Patient admits to feeling drowsy and fatigued at this time however has no other complaints. No chest pain. No dyspnea. Patient denies confusion. According to the chart patient was transferred from the intermediate facility because of mottling of bilateral lower extremity difficulty breathing and confusion; in the ED patient was found to be bradycardic with rhythm strip showing 6-second pauses; EKG revealed sinus bradycardia with prolonged TN interval --Patient was evaluated by cardiology in ED and deemed to have severe bradycardia with sick sinus syndrome and 6-second pauses with slow junctional escape beats; patient was also found to be hypotensive and was placed on norepinephrine for blood pressure support and bradycardia; patient was taken to the [facility] for TVP; patient is on anticoagulation therapy which was placed on hold given concern for stroke with patient with mental status change The patient was taken to the cardiac [facility], underwent temporary transvenous pacemaker placement using left femoral approach. In the cardiac catheterization lab having a pacemaker implantation, patient was noted to have significant hypotension requiring maximal therapy with norepinephrine and dopamine at 25 mcg/kg/min. Patient also received Ronnell-Synephrine, continues to have significant episodes of hypotension and worsening mental status/encephalopathy. Patient was sent to the ICU, and she was intubated in the intensive care unit. 11/18/2023 Patient was hypernatremic over the weekend because she was not eating and drinking well she required some D5W, currently improved. She is awake alert but somewhat sleepy and lethargic. She denies any specific complaint. Sitter at bedside Vitals are stable and currently saturating 93% on 2 L oxygen via nasal cannula and she is afebrile. Labs today reviewed showing hemoglobin 9.9. BMP showing potassium 3.2 which is replaced. Creatinine at baseline 2.5. Glucose controlled. Magnesium 1.6 Please refer to the paper copy for more details Objective - Vital Signs Vital signs: Vital Signs Temp 97.5 F L 11/18/23 07:27 Pulse 87 11/18/23 07:27 Resp 18 11/18/23 07:27 BP 138/81 11/18/23 07:27 Pulse Ox 93 L 11/18/23 08:20 FiO2 60 10/29/23 04:22 Intake & Output 11/17/23 11/18/23 11/18/23 18:59 06:59 18:59 Other: Voiding Method Indwelling Catheter ABP, PAP, CO, CI - Last Documented Arterial Blood Pressure 137/52 - Exam GENERAL: The patient is alert and oriented x3, not in any acute distress. Well developed, well nourished. HEENT: Pupils are round and equally reacting to light. EOMI. No scleral icterus. No conjunctival pallor. Normocephalic, atraumatic. No pharyngeal erythema. No thyromegaly. CARDIOVASCULAR: S1 and S2 present. No murmurs, rubs, or gallops. PULMONARY: Chest is clear to auscultation, no wheezing , no crackles. ABDOMEN: Soft, nontender, nondistended, normoactive bowel sounds. No palpable organomegaly. MUSCULOSKELETAL: No joint swelling or deformity. EXTREMITIES: No cyanosis, clubbing, or pedal edema. NEUROLOGICAL: Gross neurological examination did not reveal any focal deficits. SKIN: No rashes. no petechiae. - Labs CBC & Chem 7: 11/18/23 02:12 11/18/23 02:21 Labs: Abnormal Lab Results - Last 24 Hours (Table) 11/18/23 11/18/23 11/18/23 Range/Units 02:12 02:21 11:56 RBC 3.34 L (3.80-5.40) m/uL Hgb 9.9 L (11.4-16.0) gm/dL Hct 31.8 L (34.0-46.0) % RDW 17.3 H (11.5-15.5) % Lymphocytes # 0.9 L (1.0-4.8) k/uL Potassium 3.2 L (3.5-5.1) mmol/L Chloride 110 H (98-107) mmol/L Carbon Dioxide 31 H (22-30) mmol/L BUN 24 H (7-17) mg/dL Creatinine 2.54 H (0.52-1.04) mg/dL POC Glucose (mg/dL) 132 H (70-110) mg/dL Assessment and Plan Assessment: UTI right leg cellulitis Hypertension Acute hypoxic respiratory failure improved Sick sinus syndrome CKD Hypernatremia improved Peripheral vascular disease Diabetes mellitus Plan: Continue with oxygen Encourage oral hydration Continue with Eliquis On Lipitor Pulmonary team consult Patient currently off antibiotic per ID team will follow closely GI and DVT prophylaxis
--- NOTE | 2023-11-18 15:16 | P.PN ---
Subjective Progress Note Date: 11/18/23 Patient was seen for a follow-up. Please refer to my notes from the paper chart for details. Patient was initially seen by Dr. Tod Bhakta in consultation on 10/28/2023. Please refer to his note for details. Patient is laying in the bed, appears comfortable, smiling. Watching TV. Denies any headache or dizziness. Patient's sister arrived, who provided with some additional history. She mentions that patient has history of mobility issues for a long time because of her hip problems for "decades old". She uses cane once in a while. She has very limited walking. When she goes to the mall, the family dropped her to the gait and she uses a cart. 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 In the last couple months since July, when she was hospitalized had a respiratory failure, put on breathing machine, then discharged to [facility]. Since then she has not been well. She has been more confused, more disoriented. She would not pay the bills, screw up her medications. Objective - Vital Signs Vital signs: Vital Signs Temp 97.5 F L 11/18/23 07:27 Pulse 87 11/18/23 07:27 Resp 18 11/18/23 07:27 BP 138/81 11/18/23 07:27 Pulse Ox 93 L 11/18/23 08:20 FiO2 60 10/29/23 04:22 Intake & Output 11/17/23 11/18/23 11/18/23 18:59 06:59 18:59 Other: Voiding Method Indwelling Catheter ABP, PAP, CO, CI - Last Documented Arterial Blood Pressure 137/52 - Exam Patient is alert and awake in no distress. Patient states it is May, then said it is June. States this is 2011. Patient states is at [facility] in [place]. Speech and language functions are normal. Patient is very pleasant. Biceps is 4+, triceps 4+. Her hands and her mitten. In the lower limbs, hip flexion is about 4-with limited range of motion. She can wiggle her feet. - Labs CBC & Chem 7: 11/18/23 02:12 11/18/23 02:21 Labs: Abnormal Lab Results - Last 24 Hours (Table) 11/18/23 11/18/23 11/18/23 Range/Units 02:12 02:21 11:56 RBC 3.34 L (3.80-5.40) m/uL Hgb 9.9 L (11.4-16.0) gm/dL Hct 31.8 L (34.0-46.0) % RDW 17.3 H (11.5-15.5) % Lymphocytes # 0.9 L (1.0-4.8) k/uL Potassium 3.2 L (3.5-5.1) mmol/L Chloride 110 H (98-107) mmol/L Carbon Dioxide 31 H (22-30) mmol/L BUN 24 H (7-17) mg/dL Creatinine 2.54 H (0.52-1.04) mg/dL POC Glucose (mg/dL) 132 H (70-110) mg/dL Assessment and Plan Assessment: * Altered mental status due to toxic metabolic encephalopathy patient has been having cognitive decline since last admission in July 2023. Needs further workup. * Patient was admitted for syncopal episode, was found to have heart rate of 20. Patient had a temporary venous pacemaker placed, which has been removed. * Status post sepsis, cellulitis, pneumonia and UTI * Chronic renal disease * Status postextubation 11/02/2023 * Diabetes, not well-controlled, with last A1c 7.8 on 09/04/2023 * Hypertension * Hyperlipidemia * Obesity * Hyponatremia, resolved Plan: * Patient is off antibiotics. ID following. * Continue Eliquis * Repeat EEG in the morning. Initial EEG on 10/29/2023 was abnormal with moderate to severe encephalopathy and transient, brief sharp appearing waves while the eyes were manually opened by the driver license technician. Please refer to detailed report. * Initial EEG on 10/29/2023 revealed: * B12, folate * Carotid Doppler * MRI of the brain. * Await placement when above workup completed. * Dr. Tod Bhakta to start neurology service for the morning.
[2023-11-18] MEDS: POTASSIUM CHLORIDE ER 20 MEQ TAB.ER PO STA (16:06)
[2023-11-18] MEDS: MAGNESIUM SULFATE-D5W PMX 1 GM in DEXTROSE/WATER 1 100ML.BAG IVPB ONE (16:06)
[2023-11-18 16:54] LABS: Glucose,Whole Blood 93 mg/dL (70-110)
--- NOTE | 2023-11-18 17:22 | US ---
EXAMINATION TYPE: US carotid duplex BILAT DATE OF EXAM: 11/18/2023 COMPARISON: NONE CLINICAL INDICATION: Female, 68 years old with history of AMS; AMS per order. Prior smoker, hypertens ion, hyperlipidemia, diabetes. TECHNIQUE: Carotid duplex ultrasound examination. Indirect Doppler criteria was utilized. FINDINGS: EXAM MEASUREMENTS: RIGHT: Peak Systolic Velocity (PSV) cm/sec ----- Right CCA: 37.2 ----- Right ICA: 66.0 ----- Right ECA: 79.0 ICA/CCA ratio: 1.8 RIGHT: End Diastole cm/sec ----- Right CCA: 10.9 ----- Right ICA: 21.5 ----- Right ECA: 14.2 LEFT: Peak Systolic Velocity (PSV) cm/sec ----- Left CCA: 48.3 ----- Left ICA: 81.4 ----- Left ECA: 119.4 ICA/CCA ratio: 1.7 LEFT: End Diastole cm/sec ----- Left CCA: 14.9 ----- Left ICA: 15.4 ----- Left ECA: 12.8 VERTEBRALS (direction of flow): Right Vertebral: Antegrade Left Vertebral: Antegrade Rhythm: Arrhythmia [employer] TECHNICIAN NOTES: Shadowing plaque seen within bilateral bulbs and bilateral proximal ICA and ECA. Greater amount of plaque seen left bulb/left prox ICA. Some narrowing seen left proximal ICA and ECA . No elevated velocities. IMPRESSION: Moderate atherosclerotic change particularly at the left carotid bulb but no velocity elevations to s uggest a hemodynamically significant internal carotid artery stenosis. Criteria for Assigning % of Stenosis / Diameter reduction (Estimation based on the indirect measurements of the internal carotid artery velocities (ICA PSV). 1. Normal (no stenosis)=ICA PSV < 125 cm/s: ratio < 2.0: ICA EDV<40 cm/s. 2. Less than 50% stenosis=ICA PSV < 125 cm/s: ratio < 2.0: ICA EDV<40 cm/s. 3. 50 to 69% stenosis=ICA PSV of 125 to 230 cm/s: ration 2.0 ? 4.0: ICA EDV 40-100 cm/s. 4. Greater than 70% stenosis to near occlusion= ICA PSV > 230 cm/s: ratio > 4.0: ICA EDV > 100 cm/s. 5. Near occlusion= ICA PSV velocities may be low or undetectable: variable ratio and ICA EDV. 6. Total occlusion=unable to detect flow.
--- NOTE | 2023-11-18 21:20 | P.PN ---
Subjective Progress Note Date: 11/18/23 Principal diagnosis: Reason for follow-up is right lower extremity wound Patient is a 68-year-old female past medical history significant for hypertension hyperlipidemia diabetes mellitus depression with initial presentation to the hospital with SIRS/sepsis concerning for pneumonia UTI right leg wound and cellulitis. On today's evaluation that is 11/18/2023,the patient denies any fever or any chills, patient is breathing comfortably on 2 L nasal cannula oxygen the patient denies chest pain shortness of breath and no significant cough, patient denies abdominal pain, no nausea vomiting or diarrhea. Patient white count is 3.8 creatinine is 2.54 Objective - Vital Signs Vital signs: Vital Signs Temp 97.5 F L 11/18/23 07:27 Pulse 87 11/18/23 07:27 Resp 18 11/18/23 07:27 BP 138/81 11/18/23 07:27 Pulse Ox 93 L 11/18/23 08:20 FiO2 60 10/29/23 04:22 Intake & Output 11/17/23 11/18/23 11/18/23 18:59 06:59 18:59 Other: Voiding Method Indwelling Catheter ABP, PAP, CO, CI - Last Documented Arterial Blood Pressure 137/52 - Exam GENERAL DESCRIPTION: An elderly female lying in bed in no distress RESPIRATORY SYSTEM: Unlabored breathing , decreased breath sounds at bases HEART: S1 S2 regular rate and rhythm , ABDOMEN: Soft , no tenderness EXTREMITIES: Right leg wound is currently dressed - Labs CBC & Chem 7: 11/18/23 02:12 11/18/23 02:21 Labs: Abnormal Lab Results - Last 24 Hours (Table) 11/18/23 11/18/23 11/18/23 Range/Units 02:12 02:21 11:56 RBC 3.34 L (3.80-5.40) m/uL Hgb 9.9 L (11.4-16.0) gm/dL Hct 31.8 L (34.0-46.0) % RDW 17.3 H (11.5-15.5) % Lymphocytes # 0.9 L (1.0-4.8) k/uL Potassium 3.2 L (3.5-5.1) mmol/L Chloride 110 H (98-107) mmol/L Carbon Dioxide 31 H (22-30) mmol/L BUN 24 H (7-17) mg/dL Creatinine 2.54 H (0.52-1.04) mg/dL POC Glucose (mg/dL) 132 H (70-110) mg/dL Assessment and Plan (1) Sepsis Current Visit: Yes Status: Acute Code(s): A41.9 - SEPSIS, UNSPECIFIED ORGANISM SNOMED Code(s): 17218219 (2) UTI (urinary tract infection) Current Visit: Yes Status: Acute Code(s): N39.0 - URINARY TRACT INFECTION, SITE NOT SPECIFIED SNOMED Code(s): 61848449 (3) Leg wound, right Current Visit: Yes Status: Acute Code(s): S81.801A - UNSPECIFIED OPEN WOUND, RIGHT LOWER LEG, INITIAL ENCOUNTER SNOMED Code(s): 00014454872580968 Plan: 1patient presented to hospital with syncopal episode in this patient who did have a features of SIRS/sepsis concerning for possible UTI and pneumonia right leg wound and cellulitis while patient has received adequate antibiotic therapy 2-local wound care to the right lower extremity wound with a dry Aquacel dr lang followed by Ray wrap change every 48 hour Dictation was produced using [email or web address] dictation software. please excuse any grammatical, word or spelling errors. Time with Patient: Less than 30
[2023-11-18 21:24] LABS: Glucose,Whole Blood 127 mg/dL (70-110)
[2023-11-19 06:48] LABS: Glucose,Whole Blood 83 mg/dL (70-110)
[2023-11-19 09:20] LABS: % Iron Saturation 35.23 (12.00-45.00)
[2023-11-19 09:23] LABS: BUN/Creat Ratio 8.42 Ratio (12.00-20.00); Blood Urea Nitrogen 21.9 mg/dL (9.0-27.0); Calcium 8.5 mg/dL (8.7-10.3); Carbon Dioxide 28.6 mmol/L (21.6-31.8); Chloride 106 mmol/L (96-109); Glucose 88 mg/dL (70-110); Magnesium 1.7 mg/dL (1.5-2.4); Sodium 146 mmol/L (135-145)
--- NOTE | 2023-11-19 10:50 | P.PN ---
Subjective Patient is seen in follow-up for acute kidney injury and chronic kidney disease. Renal function fairly stable. Sodium level 146. On torsemide. Oral intake fair. Nonoliguric. Vital signs are stable. General: No acute distress. HEENT: Head exam is unremarkable. On nasal cannula. LUNGS: No audible rhonchi or wheezes. HEART: Rate and Rhythm are regular. ABDOMEN: Obese, nontender. EXTREMITITES: Trace edema. Objective - Vital Signs Vital signs: Vital Signs Temp 97.5 F L 11/19/23 08:00 Pulse 83 11/19/23 08:00 Resp 19 11/19/23 08:00 BP 156/78 11/19/23 08:00 Pulse Ox 96 11/19/23 08:00 FiO2 60 10/29/23 04:22 Intake & Output 11/18/23 11/19/23 11/19/23 18:59 06:59 18:59 Output Total 300 Balance -300 Output: Urine 300 Other: Voiding Method Indwelling Catheter Indwelling Catheter # Voids 700 ABP, PAP, CO, CI - Last Documented Arterial Blood Pressure 137/52 - Labs CBC & Chem 7: 11/18/23 02:12 11/19/23 05:18 Labs: Abnormal Lab Results - Last 24 Hours (Table) 11/18/23 11/18/23 11/18/23 Range/Units 02:21 02:21 11:56 Sodium (135-145) mmol/L Creatinine (0.6-1.5) mg/dL Est GFR (CKD-EPI) (>=60) BUN/Creatinine Ratio (12.00-20.00) Ratio POC Glucose (mg/dL) 132 H (70-110) mg/dL Calcium (8.7-10.3) mg/dL TIBC 176 L (228-460) UG/DL Transferrin 126.0 L (204.0-354.0) mg/dL Vitamin B12 1421.0 H (200.0-944.0) pg/mL 11/18/23 11/19/23 Range/Units 21:22 05:18 Sodium 146 H (135-145) mmol/L Creatinine 2.6 H (0.6-1.5) mg/dL Est GFR (CKD-EPI) 20 L (>=60) BUN/Creatinine Ratio 8.42 L (12.00-20.00) Ratio POC Glucose (mg/dL) 127 H (70-110) mg/dL Calcium 8.5 L (8.7-10.3) mg/dL TIBC (228-460) UG/DL Transferrin (204.0-354.0) mg/dL Vitamin B12 (200.0-944.0) pg/mL Assessment and Plan Plan: Assessment: 1. Chronic kidney disease stage IV. Creatinine fairly stable at 2.6. 2. Volume overload. On torsemide. Improved. 3. Sepsis secondary to pneumonia and cellulitis. s/p antibiotics. 4. Hypernatremia from lack of oral water intake and free water diuresis. Improved with D5W. 5. Anemia of chronic kidney disease maintained on Aranesp. Iron replete. 6. Hypokalemia from diuresis. Replaced. Improved. Plan: Hold torsemide. Resume D5W at 50 cc an hour. Encourage oral intake, including free water. Avoid nephrotoxins. Continue to monitor renal function and urine output.
[2023-11-19] MEDS: POTASSIUM CHLORIDE ER 20 MEQ TAB.ER PO ONE ×2 (11:52→12:50)
[2023-11-19 11:58] LABS: Glucose,Whole Blood 101 mg/dL (70-110)
--- NOTE | 2023-11-19 12:07 | P.PN ---
Subjective Progress Note Date: 11/19/23 68-year-old female presenting to the emergency department with syncopal episodes. Episode started within the last hour. Patient comes from senior care and had a syncopal episode there. There is questionable hypotension. Patient did have 1 syncopal episode by EMS and was drowsy several times however blood pressure they obtained was not hypotensive. Patient admits to feeling drowsy and fatigued at this time however has no other complaints. No chest pain. No dyspnea. Patient denies confusion. According to the chart patient was transferred from the senior care facility because of mottling of bilateral lower extremity difficulty breathing and confusion; in the ED patient was found to be bradycardic with rhythm strip showing 6-second pauses; EKG revealed sinus bradycardia with prolonged MN i nterval --Patient was evaluated by cardiology in ED and deemed to have severe bradycardia with sick sinus syndrome and 6-second pauses with slow junctional escape beats; patient was also found to be hypotensive and was placed on norepinephrine for blood pressure support and bradycardia; patient was taken to the [facility] for [facility]; patient is on anticoagulation therapy which was placed on hold given concern for stroke with patient with mental status change The patient was taken to the cardiac [facility], underwent temporary transvenous pacemaker placement using left femoral approach. In the cardiac catheterization lab having a pacemaker implantation, patient was noted to have significant hypotension requiring maximal therapy with norepinephrine and dopamine at 25 mcg/kg/min. Patient also received Ronnell-Synephrine, continues to have significant episodes of hypotension and worsening mental status/encephalopathy. Patient was sent to the ICU, and she was intubated in the intensive care unit. 11/18/2023 Patient was hypernatremic over the weekend because she was not eating and drinking well she required some D5W, currently improved. She is awake alert but somewhat sleepy and lethargic. She denies any specific complaint. Sitter at bedside Vitals are stable and currently saturating 93% on 2 L oxygen via nasal cannula and she is afebrile. Labs today reviewed showing hemoglobin 9.9. BMP showing potassium 3.2 which is replaced. Creatinine at baseline 2.5. Glucose controlled. Magnesium 1.6 11/18. Patient seen and examined. Labs done this morning showed sodium 146, potassium 4, BUN 21.9, creatinine 2.6 REVIEW OF SYSTEMS: CONSTITUTIONAL: No fever, no malaise,. CARDIOVASCULAR: No chest pain, no palpitations, no syncope. PULMONARY: No shortness of breath, no cough, GASTROINTESTINAL: No diarrhea, no nausea, no vomiting, no abdominal pain. NEUROLOGICAL: No headaches, no weakness, PHYSICAL EXAMINATION: GENERAL: The patient is alert and oriented x1, not in any acute distress. Well developed, well nourished. HEENT: Pupils are round and equally reacting to light. EOMI. No scleral icterus. No conjunctival pallor. Normocephalic, atraumatic. No pharyngeal erythema. No thyromegaly. CARDIOVASCULAR: S1 and S2 present. No murmurs, rubs, or gallops. PULMONARY: Chest is clear to auscultation, no wheezing or crackles. ABDOMEN: Soft, nontender, nondistended, normoactive bowel sounds. No palpable organomegaly. MUSCULOSKELETAL: No joint swelling or deformity. EXTREMITIES: No cyanosis, clubbing, or pedal edema. NEUROLOGICAL: Gross neurological examination did not reveal any focal deficits. SKIN: No rashes. Assessment and plan UTI right leg cellulitis Hypertension Acute hypoxic respiratory failure improved Sick sinus syndrome CKD Hypernatremia improved Peripheral vascular disease Diabetes mellitus Monitor vital signs Monitor CBC Monitor CMP Encourage oral hydration EEG ordered MRI ordered Neurology following PT and OT recommend rehab Labs and medication were reviewed.. Continue same treatment. Continue with symptomatic treatment. Resume home medication. Monitor labs and vitals. DVT and GI prophylaxis. Further recommendations as per clinical course of the patient Dictation was produced using [employer] dictation software. please excuse any grammatical, word or spelling errors. Objective - Vital Signs Vital signs: Vital Signs Temp 97.5 F L 11/19/23 08:00 Pulse 83 11/19/23 08:00 Resp 19 11/19/23 08:00 BP 156/78 11/19/23 08:00 Pulse Ox 96 11/19/23 08:00 FiO2 60 10/29/23 04:22 Intake & Output 11/18/23 11/19/23 11/19/23 18:59 06:59 18:59 Output Total 300 Balance -300 Output: Urine 300 Other: Voiding Method Indwelling Catheter Indwelling Catheter # Voids 700 ABP, PAP, CO, CI - Last Documented Arterial Blood Pressure 137/52 - Labs CBC & Chem 7: 11/18/23 02:12 11/19/23 05:18 Labs: Abnormal Lab Results - Last 24 Hours (Table) 11/18/23 11/18/23 11/18/23 Range/Units 02:21 02:21 21:22 Sodium (135-145) mmol/L Creatinine (0.6-1.5) mg/dL Est GFR (CKD-EPI) (>=60) BUN/Creatinine Ratio (12.00-20.00) Ratio POC Glucose (mg/dL) 127 H (70-110) mg/dL Calcium (8.7-10.3) mg/dL TIBC 176 L (228-460) UG/DL Transferrin 126.0 L (204.0-354.0) mg/dL Vitamin B12 1421.0 H (200.0-944.0) pg/mL 11/19/23 Range/Units 05:18 Sodium 146 H (135-145) mmol/L Creatinine 2.6 H (0.6-1.5) mg/dL Est GFR (CKD-EPI) 20 L (>=60) BUN/Creatinine Ratio 8.42 L (12.00-20.00) Ratio POC Glucose (mg/dL) (70-110) mg/dL Calcium 8.5 L (8.7-10.3) mg/dL TIBC (228-460) UG/DL Transferrin (204.0-354.0) mg/dL Vitamin B12 (200.0-944.0) pg/mL
[2023-11-19] MEDS: DEXTROSE 5% IN WATER 1,000 ML IV SCH (12:09)
--- NOTE | 2023-11-19 13:23 | P.PN ---
Subjective Progress Note Date: 11/19/23 The patient is seen today November 18, 2023 in follow-up on the regular medical floor. She is currently awake and alert in no acute distress. 2 L/min per nasal cannula. She is afebrile. Hemodynamically stable. 272. Sodium 141. Potassium 3.2. Bicarb 31. BUN 24. Creatinine 2.54. Glucose 94. She is continued on DuoNeb inhalations. Completed antibiotics. Remains anticoagulated with Eliquis. The patient is seen today November 19, 2023 and follow-up on the regular medical floor. She is sitting up in bed. Awake and alert in no acute distress. She is maintaining O2 saturation in the 90s on 2 L/min per nasal cannula. No IV fluids. She is still having issues with some altered mental status. Carotid Dopplers revealed no significant carotid stenosis. MRI of the brain is pending. Blood and sputum cultures revealed no growth. Sodium 146. Potassium 4.0. Bicarb 28. BUN 22. Creatinine 2.6. Glucose 88. She remains on DuoNeb inhalations, Pulmicort inhalations. Anticoagulated with Eliquis. Objective - Vital Signs Vital signs: Vital Signs Temp 97.5 F L 11/19/23 08:00 Pulse 83 11/19/23 08:00 Resp 19 11/19/23 08:00 BP 156/78 11/19/23 08:00 Pulse Ox 96 11/19/23 08:00 FiO2 60 10/29/23 04:22 Intake & Output 11/18/23 11/19/23 11/19/23 18:59 06:59 18:59 Output Total 300 Balance -300 Output: Urine 300 Other: Voiding Method Indwelling Catheter Indwelling Catheter # Voids 700 ABP, PAP, CO, CI - Last Documented Arterial Blood Pressure 137/52 - Exam GENERAL EXAM: Alert, obese, 68-year-old female, on 2 L nasal cannula, sitting up in bed, comfortable in no apparent distress. HEAD: Normocephalic. EYES: Normal reaction of pupils, equal size. NOSE: Clear with pink turbinates. THROAT: No erythema or exudates. NECK: No masses, no JVD. CHEST: No chest wall deformity. LUNGS: Equal air entry with no crackles, wheeze, rhonchi or dullness. CVS: S1 and S2 normal with no audible murmur, regular rhythm. ABDOMEN: No hepatosplenomegaly, normal bowel sounds, no guarding or rigidity. SPINE: No scoliosis or deformity SKIN: No rashes CENTRAL NERVOUS SYSTEM: No focal deficits, tone is normal in all 4 extremities. EXTREMITIES: There is no peripheral edema. No clubbing, no cyanosis. Peripheral pulses are intact. - Labs CBC & Chem 7: 11/18/23 02:12 11/19/23 05:18 Labs: Abnormal Lab Results - Last 24 Hours (Table) 11/18/23 11/18/23 11/18/23 Range/Units 02:21 02:21 21:22 Sodium (135-145) mmol/L Creatinine (0.6-1.5) mg/dL Est GFR (CKD-EPI) (>=60) BUN/Creatinine Ratio (12.00-20.00) Ratio POC Glucose (mg/dL) 127 H (70-110) mg/dL Calcium (8.7-10.3) mg/dL TIBC 176 L (228-460) UG/DL Transferrin 126.0 L (204.0-354.0) mg/dL Vitamin B12 1421.0 H (200.0-944.0) pg/mL 11/19/23 Range/Units 05:18 Sodium 146 H (135-145) mmol/L Creatinine 2.6 H (0.6-1.5) mg/dL Est GFR (CKD-EPI) 20 L (>=60) BUN/Creatinine Ratio 8.42 L (12.00-20.00) Ratio POC Glucose (mg/dL) (70-110) mg/dL Calcium 8.5 L (8.7-10.3) mg/dL TIBC (228-460) UG/DL Transferrin (204.0-354.0) mg/dL Vitamin B12 (200.0-944.0) pg/mL Assessment and Plan Assessment: Acute hypoxic respiratory failure secondary to suspected aspiration pneumonia Cellulitis of the right lower extremity Peripheral vascular occlusive disease Hypertension Diabetes mellitus Hyperlipidemia Acute on chronic kidney disease Altered mental status, MRI of the brain pending Plan: The patient was seen and evaluated Labs and medications reviewed Completed antibiotics Continue bronchodilators EEG, MRI of the brain pending Plan is for [facility] discharge I have personally seen and examined the patient, performed the documentation and the assessment and plan as written. Number of minutes spent on the visit: 10.
--- NOTE | 2023-11-19 13:36 | MR ---
EXAMINATION TYPE: MR brain wo con DATE OF EXAM: 11/19/2023 12:54 PM CLINICAL INDICATION: Female, 68 years old with history of AMS; COMPARISON: 10/28/2023. TECHNIQUE: Multi planar, multi sequence imaging was performed through the brain including: T1, T2, In version recovery, Diffusion weighted imaging, and gradient echo imaging. No gadolinium was given. FINDINGS: The friend-white junctions, ventricular system, basal cisterns appear unremarkable. Scattered foci of high T2 signal intensity are seen within the periventricular white matter. Midline structures show n o abnormality. Diffusion-weighted imaging shows no evidence of restricted diffusion. The susceptibili ty weighted images do not reveal any evidence for micro-hemorrhage. The bone marrow signal is within normal limits. Paranasal sinuses and mastoid air cells: High T2 signal mucosal thickening of the left maxillary sinu s. Scattered high T2 signal in the bilateral mastoid air cells. Visualized orbits: Bilateral aphakia IMPRESSION: 1. No evidence of intracranial mass or acute/subacute infarct. 2. Nonspecific white matter changes, likely secondary to small vessel ischemic disease. 3. Trace bilateral mastoid air cell effusions. 4. Moderate left maxillary sinus mucosal thickening.
--- NOTE | 2023-11-19 13:48 | FL ---
Exam Date: 11/19/2023 1:41 PM. Modified barium swallow for dysphagia. Consistencies administered: Various consistency of barium. Fluoro time: 58.8 seconds trauma 25 images No images were sent to PACS. Please see speech pathology report. DAP: 3 mGym2 Gycm2
[2023-11-19 17:34] LABS: Glucose,Whole Blood 104 mg/dL (70-110)
--- NOTE | 2023-11-19 17:58 | P.PN ---
Subjective Progress Note Date: 11/19/23 I initially saw the patient on 10/28/2023 and ever since patient was being managed by Dr. Small for neurological care. Please refer to his notes for further details. Seems the patient continues to have altered mental status. During this admission she admitted for syncopal episode and was found to have a heart rate of 20s and had temporary venous pacemaker which was removed. Objective - Vital Signs Vital signs: Vital Signs Temp 97.5 F L 11/19/23 08:00 Pulse 83 11/19/23 08:00 Resp 19 11/19/23 08:00 BP 156/78 11/19/23 08:00 Pulse Ox 96 11/19/23 08:00 FiO2 60 10/29/23 04:22 Intake & Output 11/18/23 11/19/23 11/19/23 18:59 06:59 18:59 Output Total 300 500 Balance -300 -500 Output: Urine 300 500 Other: Voiding Method Indwelling Catheter Indwelling Catheter Indwelling Catheter # Voids 700 ABP, PAP, CO, CI - Last Documented Arterial Blood Pressure 137/52 - Exam General: patient is lying in bed and does not appear in acute distress. Neuro: Drowsy but is is oriented to self correctly stated she is in the hospital. She is able to name pen correctly. She is following few simple commands such as sticking her tongue out lifting her arms. Pulls are round equal reactive to light. No facial weakness. No dysarthria Motor is left in arms and wiggling her feet symmetrically. - Labs CBC & Chem 7: 11/18/23 02:12 11/19/23 05:18 Labs: Abnormal Lab Results - Last 24 Hours (Table) 11/18/23 11/18/23 11/18/23 Range/Units 02:21 02:21 21:22 Sodium (135-145) mmol/L Creatinine (0.6-1.5) mg/dL Est GFR (CKD-EPI) (>=60) BUN/Creatinine Ratio (12.00-20.00) Ratio POC Glucose (mg/dL) 127 H (70-110) mg/dL Calcium (8.7-10.3) mg/dL TIBC 176 L (228-460) UG/DL Transferrin 126.0 L (204.0-354.0) mg/dL Vitamin B12 1421.0 H (200.0-944.0) pg/mL 11/19/23 Range/Units 05:18 Sodium 146 H (135-145) mmol/L Creatinine 2.6 H (0.6-1.5) mg/dL Est GFR (CKD-EPI) 20 L (>=60) BUN/Creatinine Ratio 8.42 L (12.00-20.00) Ratio POC Glucose (mg/dL) (70-110) mg/dL Calcium 8.5 L (8.7-10.3) mg/dL TIBC (228-460) UG/DL Transferrin (204.0-354.0) mg/dL Vitamin B12 (200.0-944.0) pg/mL Assessment and Plan Assessment: * Altered mental status due to toxic metabolic encephalopathy patient has been having cognitive decline since last admission in July 2023. Needs further workup--mentation is slightly improving * Patient was admitted for syncopal episode, was found to have heart rate of 20. Patient had a temporary venous pacemaker placed, which has been removed. * Status post sepsis, cellulitis, pneumonia and UTI * Chronic renal disease * Status postextubation 11/02/2023 * Diabetes, not well-controlled, with last A1c 7.8 on 09/04/2023 * Hypertension * Hyperlipidemia * Obesity * Hyponatremia, resolved Plan: * Patient is off antibiotics. ID following. * Continue Eliquis * Repeat EEG today: Preliminary No seizure or clear discharges. * Initial EEG on 10/29/[address] Small was abnormal with moderate to severe encephalopathy and transient, brief sharp appearing waves while the eyes were manually opened by the electrical instrument technician. Please refer to detailed report. * B12: 1421, folate 16.80 * Carotid Doppler: Moderate atherosclerotic changes particularly at the left carotid bulb but no velocity elevation to suggest hemodynamically significant internal carotid artery stenosis * MRI of the brain: No evidence of intracranial mass or acute/subacute infarct. Nonspecific white matter changes likely secondary due to small vessel ischemic disease. Trace bilateral mastoid air cell effusion. Moderate left maxillary sinus mucosal thickening. * Will defer the rest of medical management to primary and other specialist. Will follow-up with patient sporadically. Time with Patient: Less than 30
[2023-11-19 21:13] LABS: Glucose,Whole Blood 87 mg/dL (70-110)
[2023-11-20 05:33] LABS: Glucose,Whole Blood 87 mg/dL (70-110)
--- NOTE | 2023-11-20 10:12 | PN ---
PROGRESS NOTE DATE OF SERVICE: 11/17/2023 LOCATION: 480. REASON FOR FOLLOWUP: Right lower extremity wound. INTERVAL HISTORY: The patient is afebrile. She is breathing comfortably on nasal cannula oxygen. The patient is sleeping but arousable. Denies any chest pain, shortness of breath, or cough. No abdominal pain. No diarrhea. EXAMINATION: VITAL SIGNS: Blood pressure 138/69, pulse of 89, temperature 97.7. GENERAL DESCRIPTION: This is an elderly female, lying in bed, in no distress. RESPIRATORY SYSTEM: Unlabored breathing. Clear to auscultation anteriorly. HEART: S1, S2. Regular rate and rhythm. ABDOMEN: Soft. EXTREMITIES: Right leg wound is currently dressed. No drainage on the dressing. LABS: Creatinine is 2.29. No CBC was done. DIAGNOSTIC IMPRESSION AND PLAN: The patient with initial admission to the hospital with sepsis, source is likely combination of pneumonia and UTI in addition to right leg wound cellulitis. Has received adequate antibiotic, currently being monitored closely off antibiotic. Local wound care to continue with Aquacel Silver dressing and monitor clinical course. MMODL / IJN: [id number] /
--- NOTE | 2023-11-20 10:14 | EEG ---
DATE OF SERVICE: 10/29/2023 ELECTROENCEPHALOGRAM REPORT PREAMBLE: EEG was performed on 10/29/2023, but because complete system shut down of [facility], therefore not able to read the EEG until today on 11/18/2023 until the system is reinstated. The patient is a 68-year-old female with altered mental status, rule out seizure. CURRENT MEDICATIONS: 1. Lipitor. 2. Daptomycin. 3. Dopamine. 4. Synthroid. 5. Norepinephrine. 6. Propofol. 7. Vasopressin. EEG FINDINGS: This is a 21-channel portable EEG recorded with video component, utilizing 10/20 international system with referential and bipolar montages. Background consists of moderately well-developed, poorly regulated, mixed frequencies of low amplitude theta, mixed with some 2-3 hertz delta slowing in bihemispheric region. Background does not seem to be reactive to manual eye opening or closing. Some intermittent sleep spindles were seen during the study. During middle of the recording, when the dialysis chief equipment technician manually open the eyes and kept it open, there were some abnormal sharp appearing waves seen at 2 hertz in generalized distribution. This activity resolved as soon as the eyelids were let go. No other epileptiform activity was seen otherwise. IMPRESSION: 1. Abnormal EEG due to background slowing, suggestive of moderate to severe encephalopathy. 2. Briefly, while the dialysis chief equipment technician manually open the eyes, there were some-sharp appearing waves seen at 2 hertz seen in bihemispheric region, but this activity resolved once the eyes closed again. This is of uncertain clinical significance. Suggest repeating EEG. MMODL / IJN: [id number] / NISHA
--- NOTE | 2023-11-20 10:14 | EEG ---
ELECTROENCEPHALOGRAM REPORT CLINICAL HISTORY: This is a 68-year-old woman with altered mental status. The video EEG is obtained to evaluate for seizure epileptiform activity. RELEVANT MEDICATIONS: The patient is not on any antiseizure medications. EEG TYPE: A routine 21-channel EEG with video using the 10/20 electrode placement system. DESCRIPTION: Wakefulness is obtained. During awake state, the background consists of low-to- moderate voltage of 6 to 7 Hz activity. There is no physiological stage 2 sleep architecture. There is no focal slowing. There is mild myogenic artifact over the left temporal region. INTERICTAL AND ICTAL: None. ACTIVATION PROCEDURE: Photic stimulation and hyperventilation are not performed. CLINICAL INTERPRETATION: This is an abnormal routine EEG. The background slowing is suggestive of mild encephalopathy. Otherwise, there is no focal slowing, clear epileptiform discharge, or seizure noted during the study. Clinical correlation is recommended. DENNY / JASONN: [id number] / MTDD
[2023-11-20 10:23] LABS: BUN/Creat Ratio 8.15 Ratio (12.00-20.00); Blood Urea Nitrogen 21.2 mg/dL (9.0-27.0); Calcium 8.6 mg/dL (8.7-10.3); Carbon Dioxide 29.1 mmol/L (21.6-31.8); Chloride 104 mmol/L (96-109); Glucose 107 mg/dL (70-110); Magnesium 1.6 mg/dL (1.5-2.4); Potassium 3.7 mmol/L (3.5-5.5); Sodium 143 mmol/L (135-145)
--- NOTE | 2023-11-20 10:56 | US ---
EXAMINATION TYPE: Pre-Operative Non-Invasive Evaluation of the hand for Potential Radial Artery [address], Measurements only DATE OF EXAM: 11/20/2023 8:03 AM CLINICAL INDICATION: Female, 68 years old with history of Evaluate Radiocephalic Graft; SIDE PERFORMED: Left TECHNIQUE: Radial artery is measured utilizing real time linear array sonography. Findings: Cephalic branch seen extending to proximal radial artery there appears to be color Doppler flow through the graft. IMPRESSION: No cephalic branch extends towards the radial artery, graft appears patent. KN - preliminary given to DENISE Sears
--- NOTE | 2023-11-20 11:07 | P.PN ---
Subjective Patient is seen in follow-up for acute kidney injury and chronic kidney disease. Renal function fairly stable. Sodium level 143. On D5W. Oral intake fair. Nonoliguric. Vital signs are stable. General: No acute distress. HEENT: Head exam is unremarkable. On nasal cannula. LUNGS: No audible rhonchi or wheezes. HEART: Rate and Rhythm are regular. ABDOMEN: Obese, nontender. EXTREMITITES: Trace edema. Objective - Vital Signs Vital signs: Vital Signs Temp 97.6 F 11/20/23 07:16 Pulse 84 11/20/23 07:16 Resp 17 11/20/23 07:16 BP 155/88 11/20/23 07:16 Pulse Ox 96 11/20/23 07:16 FiO2 60 10/29/23 04:22 Intake & Output 11/19/23 11/20/23 11/20/23 18:59 06:59 18:59 Output Total 800 175 Balance -800 -175 Output: Urine 800 175 Other: Voiding Method Indwelling Catheter Indwelling Catheter ABP, PAP, CO, CI - Last Documented Arterial Blood Pressure 137/52 - Labs CBC & Chem 7: 11/18/23 02:12 11/20/23 07:32 Labs: Abnormal Lab Results - Last 24 Hours (Table) 11/20/23 Range/Units 07:32 Creatinine 2.6 H (0.6-1.5) mg/dL Est GFR (CKD-EPI) 20 L (>=60) BUN/Creatinine Ratio 8.15 L (12.00-20.00) Ratio Calcium 8.6 L (8.7-10.3) mg/dL Assessment and Plan Plan: Assessment: 1. Chronic kidney disease stage IV. Creatinine fairly stable at 2.6. 2. Volume overload. Improved with diuresis. 3. Sepsis secondary to pneumonia and cellulitis. s/p antibiotics. 4. Hypernatremia from lack of oral water intake and free water diuresis. Improved with D5W. 5. Anemia of chronic kidney disease maintained on Aranesp. Iron replete. 6. Hypokalemia from diuresis. Replaced. Improved. Plan: Continue to hold torsemide. Maintain D5W at 50 cc an hour. Encourage oral intake, including free water. Avoid nephrotoxins. Continue to monitor renal function and urine output.
[2023-11-20 11:44] LABS: Glucose,Whole Blood 113 mg/dL (70-110)
--- NOTE | 2023-11-20 12:18 | P.PN ---
Subjective Progress Note Date: 11/20/23 The patient is seen today November 18, 2023 in follow-up on the regular medical floor. She is currently awake and alert in no acute distress. 2 L/min per nasal cannula. She is afebrile. Hemodynamically stable. 272. Sodium 141. Potassium 3.2. Bicarb 31. BUN 24. Creatinine 2.54. Glucose 94. She is continued on DuoNeb inhalations. Completed antibiotics. Remains anticoagulated with Eliquis. The patient is seen today November 19, 2023 and follow-up on the regular medical floor. She is sitting up in bed. Awake and alert in no acute distress. She is maintaining O2 saturation in the 90s on 2 L/min per nasal cannula. No IV fluids. She is still having issues with some altered mental status. Carotid Dopplers revealed no significant carotid stenosis. MRI of the brain is pending. Blood and sputum cultures revealed no growth. Sodium 146. Potassium 4.0. Bicarb 28. BUN 22. Creatinine 2.6. Glucose 88. She remains on DuoNeb inhalations, Pulmicort inhalations. Anticoagulated with Eliquis. The patient is seen today November 20, 2023 in follow-up on the regular medical floor. She is sitting up in bed. Awake and alert in no acute distress. Maintaining O2 saturations in the 90s on 2 L/min per nasal cannula. RI of the brain revealed no acute intracranial process. Barium swallow was reviewed. The patient is tolerating a dysphagia level 3 chopped diet. Sodium 143. Potassium 3.7. Bicarb 29. BUN 21. Creatinine 2.6. Glucose 107. Maru on bronchodilators. Anticoagulated with Eliquis. Objective - Vital Signs Vital signs: Vital Signs Temp 97.6 F 11/20/23 07:16 Pulse 84 11/20/23 08:00 Resp 17 11/20/23 08:00 BP 155/88 11/20/23 07:16 Pulse Ox 96 11/20/23 07:16 FiO2 60 10/29/23 04:22 Intake & Output 11/19/23 11/20/23 11/20/23 18:59 06:59 18:59 Output Total 800 175 Balance -800 -175 Output: Urine 800 175 Other: Voiding Method Indwelling Catheter Indwelling Catheter Indwelling Catheter ABP, PAP, CO, CI - Last Documented Arterial Blood Pressure 137/52 - Exam GENERAL EXAM: Alert, obese, 68-year-old female, on 2 L nasal cannula, comfortable in no apparent distress. HEAD: Normocephalic. EYES: Normal reaction of pupils, equal size. NOSE: Clear with pink turbinates. THROAT: No erythema or exudates. NECK: No masses, no JVD. CHEST: No chest wall deformity. LUNGS: Equal air entry with no crackles, wheeze, rhonchi or dullness. CVS: S1 and S2 normal with no audible murmur, regular rhythm. ABDOMEN: No hepatosplenomegaly, normal bowel sounds, no guarding or rigidity. SPINE: No scoliosis or deformity SKIN: No rashes CENTRAL NERVOUS SYSTEM: No focal deficits, tone is normal in all 4 extremities. EXTREMITIES: There is no peripheral edema. No clubbing, no cyanosis. Peripheral pulses are intact. - Labs CBC & Chem 7: 11/18/23 02:12 11/20/23 07:32 Labs: Abnormal Lab Results - Last 24 Hours (Table) 11/20/23 11/20/23 Range/Units 07:32 11:42 Creatinine 2.6 H (0.6-1.5) mg/dL Est GFR (CKD-EPI) 20 L (>=60) BUN/Creatinine Ratio 8.15 L (12.00-20.00) Ratio POC Glucose (mg/dL) 113 H (70-110) mg/dL Calcium 8.6 L (8.7-10.3) mg/dL Assessment and Plan Assessment: Acute hypoxic respiratory failure secondary to suspected aspiration pneumonia Cellulitis of the right lower extremity Peripheral vascular occlusive disease Hypertension Diabetes mellitus Hyperlipidemia Acute on chronic kidney disease Altered mental status, MRI of the brain revealed no acute intracranial process Plan: The patient was seen and evaluated Imaging, labs and medications reviewed Completed antibiotics Continue bronchodilators Tolerating a dysphagia level 3 chopped diet Plan is for [facility] at discharge I have personally seen and examined the patient, performed the documentation and the assessment and plan as written. Number of minutes spent on the visit: 10.
--- NOTE | 2023-11-20 12:50 | P.PN ---
Subjective Progress Note Date: 11/20/23 68-year-old female presenting to the emergency department with syncopal episodes. Episode started within the last hour. [facility]. There is questionable hypotension. Patient did have 1 syncopal episode by EMS and was drowsy several times however blood pressure they obtained was not hypotensive. Patient admits to feeling drowsy and fatigued at this time however has no other complaints. No chest pain. No dyspnea. Patient denies confusion. According to the chart patient was [facility] because of mottling of bilateral lower extremity difficulty breathing and confusion; in the ED patient was found to be bradycardic with rhythm strip showing 6-second pauses; EKG revealed sinus bradycardia with prolonged LA i nterval --Patient was evaluated by cardiology in ED and deemed to have severe bradycardia with sick sinus syndrome and 6-second pauses with slow junctional escape beats; patient was also found to be hypotensive and was placed on norepinephrine for blood pressure support and bradycardia; patient was taken to the [facility] for [facility]; patient is on anticoagulation therapy which was placed on hold given concern for stroke with patient with mental status change The patient was taken to the cardiac [facility], underwent temporary transvenous pacemaker placement using left femoral approach. In the cardiac catheterization lab having a pacemaker implantation, patient was noted to have significant hypotension requiring maximal therapy with norepinephrine and dopamine at 25 mcg/kg/min. Patient also received Ronnell-Synephrine, continues to have significant episodes of hypotension and worsening mental status/encephalopathy. Patient was sent to the ICU, and she was intubated in the intensive care unit. 11/18/2023 Patient was hypernatremic over the weekend because she was not eating and drinking well she required some D5W, currently improved. She is awake alert but somewhat sleepy and lethargic. She denies any specific complaint. Sitter at bedside Vitals are stable and currently saturating 93% on 2 L oxygen via nasal cannula and she is afebrile. Labs today reviewed showing hemoglobin 9.9. BMP showing potassium 3.2 which is replaced. Creatinine at baseline 2.5. Glucose controlled. Magnesium 1.6 11/18. Patient seen and examined. Labs done this morning showed sodium 146, potassium 4, BUN 21.9, creatinine 2.6 11/19. Patient seen and examined. MRI brain done showed no evidence of intracranial mass or acute/subacute infarct. EEG negative for any seizure-like activity . Patient currently on D5W, sodium level is improved. REVIEW OF SYSTEMS: CONSTITUTIONAL: No fever, no malaise,. CARDIOVASCULAR: No chest pain, no palpitations, no syncope. PULMONARY: No shortness of breath, no cough, GASTROINTESTINAL: No diarrhea, no nausea, no vomiting, no abdominal pain. NEUROLOGICAL: No headaches, no weakness, PHYSICAL EXAMINATION: GENERAL: The patient is alert and oriented x1, not in any acute distress. Well developed, well nourished. HEENT: Pupils are round and equally reacting to light. EOMI. No scleral icterus. No conjunctival pallor. Normocephalic, atraumatic. No pharyngeal erythema. No thyromegaly. CARDIOVASCULAR: S1 and S2 present. No murmurs, rubs, or gallops. PULMONARY: Chest is clear to auscultation, no wheezing or crackles. ABDOMEN: Soft, nontender, nondistended, normoactive bowel sounds. No palpable organomegaly. MUSCULOSKELETAL: No joint swelling or deformity. EXTREMITIES: No cyanosis, clubbing, or pedal edema. NEUROLOGICAL: Gross neurological examination did not reveal any focal deficits. SKIN: No rashes. Assessment and plan UTI right leg cellulitis Hypertension Acute hypoxic respiratory failure improved Sick sinus syndrome CKD Hypernatremia improved Peripheral vascular disease Diabetes mellitus Monitor vital signs Monitor CBC Monitor CMP Encourage oral hydration MRI brain done showed no evidence of intracranial mass or acute/subacute infarct . EEG negative for any seizure-like activity Currently on D5W Neurology following Nephrology following PT and OT recommend rehab Labs and medication were reviewed.. Continue same treatment. Continue with symptomatic treatment. Resume home medication. Monitor labs and vitals. DVT and GI prophylaxis. Further recommendations as per clinical course of the patient Dictation was produced using [employer] dictation software. please excuse any grammatical, word or spelling errors. Objective - Vital Signs Vital signs: Vital Signs Temp 97.6 F 11/20/23 07:16 Pulse 84 11/20/23 07:16 Resp 17 11/20/23 07:16 BP 155/88 11/20/23 07:16 Pulse Ox 96 11/20/23 07:16 FiO2 60 10/29/23 04:22 Intake & Output 11/19/23 11/20/23 11/20/23 18:59 06:59 18:59 Output Total 800 175 Balance -800 -175 Output: Urine 800 175 Other: Voiding Method Indwelling Catheter Indwelling Catheter ABP, PAP, CO, CI - Last Documented Arterial Blood Pressure 137/52 - Labs CBC & Chem 7: 11/18/23 02:12 11/20/23 07:32
--- NOTE | 2023-11-20 13:03 | P.PN ---
Subjective Progress Note Date: 11/20/23 Principal diagnosis: CKD Patient seen and evaluated. Has a history of left upper extremity radiocephalic fistula which has thrombosed. Currently not on hemodialysis Objective - Vital Signs Vital signs: Vital Signs Temp 97.6 F 11/20/23 07:16 Pulse 84 11/20/23 08:00 Resp 17 11/20/23 08:00 BP 155/88 11/20/23 07:16 Pulse Ox 96 11/20/23 07:16 FiO2 60 10/29/23 04:22 Intake & Output 11/19/23 11/20/23 11/20/23 18:59 06:59 18:59 Output Total 800 175 Balance -800 -175 Output: Urine 800 175 Other: Voiding Method Indwelling Catheter Indwelling Catheter Indwelling Catheter ABP, PAP, CO, CI - Last Documented Arterial Blood Pressure 137/52 - Exam Left upper extremity radiocephalic fistula without palpable thrill or bruit Palpable radial pulse - Constitutional General appearance: Present: morbidly obese - EENT Eyes: Present: PERRLA - Respiratory Respiratory: bilateral: CTA - Labs CBC & Chem 7: 11/18/23 02:12 11/20/23 07:32 Labs: Abnormal Lab Results - Last 24 Hours (Table) 11/20/23 11/20/23 Range/Units 07:32 11:42 Creatinine 2.6 H (0.6-1.5) mg/dL Est GFR (CKD-EPI) 20 L (>=60) BUN/Creatinine Ratio 8.15 L (12.00-20.00) Ratio POC Glucose (mg/dL) 113 H (70-110) mg/dL Calcium 8.6 L (8.7-10.3) mg/dL Assessment and Plan Assessment: Chronic kidney disease Thrombosed left upper extremity radiocephalic fistula Plan: Okay to follow-up in the office for possible scheduling of another access in the left upper extremity. Patient may require loop forearm graft versus brachiocephalic fistula in the future. Will sign off and reevaluate at your request.
--- NOTE | 2023-11-20 13:32 | P.PN ---
Subjective Progress Note Date: 11/19/23 Principal diagnosis: Reason for follow-up is right lower extremity wound Patient is a 68-year-old female past medical history significant for hypertension hyperlipidemia diabetes mellitus depression with initial presentation to the hospital with SIRS/sepsis concerning for pneumonia UTI right leg wound and cellulitis. On today's evaluation that is 11/19/2023,the patient remains to be afebrile, patient is on 2 L nasal cannula supplemental oxygen and denies any shortness of breath no chest pain or cough.Patient denies having any nausea or vomiting, no abdominal pain and no diarrhea has been reported, no pain to the right leg wound. Patient did have a creatinine of 2.6 electrolytes normal except sodium is 146 Objective - Vital Signs Vital signs: Vital Signs Temp 97.5 F L 11/19/23 08:00 Pulse 83 11/19/23 08:00 Resp 19 11/19/23 08:00 BP 156/78 11/19/23 08:00 Pulse Ox 96 11/19/23 08:00 FiO2 60 10/29/23 04:22 Intake & Output 11/18/23 11/19/23 11/19/23 18:59 06:59 18:59 Output Total 300 Balance -300 Output: Urine 300 Other: Voiding Method Indwelling Catheter Indwelling Catheter # Voids 700 ABP, PAP, CO, CI - Last Documented Arterial Blood Pressure 137/52 - Exam GENERAL DESCRIPTION: An elderly female lying in bed in no distress RESPIRATORY SYSTEM: Unlabored breathing , decreased breath sounds at bases HEART: S1 S2 regular rate and rhythm , ABDOMEN: Soft , no tenderness EXTREMITIES: Right leg wound is currently dressed - Labs CBC & Chem 7: 11/18/23 02:12 11/20/23 07:32 Labs: Abnormal Lab Results - Last 24 Hours (Table) 11/18/23 11/18/23 11/18/23 Range/Units 02:21 02:21 21:22 Sodium (135-145) mmol/L Creatinine (0.6-1.5) mg/dL Est GFR (CKD-EPI) (>=60) BUN/Creatinine Ratio (12.00-20.00) Ratio POC Glucose (mg/dL) 127 H (70-110) mg/dL Calcium (8.7-10.3) mg/dL TIBC 176 L (228-460) UG/DL Transferrin 126.0 L (204.0-354.0) mg/dL Vitamin B12 1421.0 H (200.0-944.0) pg/mL 11/19/23 Range/Units 05:18 Sodium 146 H (135-145) mmol/L Creatinine 2.6 H (0.6-1.5) mg/dL Est GFR (CKD-EPI) 20 L (>=60) BUN/Creatinine Ratio 8.42 L (12.00-20.00) Ratio POC Glucose (mg/dL) (70-110) mg/dL Calcium 8.5 L (8.7-10.3) mg/dL TIBC (228-460) UG/DL Transferrin (204.0-354.0) mg/dL Vitamin B12 (200.0-944.0) pg/mL Assessment and Plan (1) Sepsis Current Visit: Yes Status: Acute Code(s): A41.9 - SEPSIS, UNSPECIFIED ORGANISM SNOMED Code(s): 18100278 (2) UTI (urinary tract infection) Current Visit: Yes Status: Acute Code(s): N39.0 - URINARY TRACT INFECTION, SITE NOT SPECIFIED SNOMED Code(s): 36867073 (3) Leg wound, right Current Visit: Yes Status: Acute Code(s): S81.801A - UNSPECIFIED OPEN WOUND, RIGHT LOWER LEG, INITIAL ENCOUNTER SNOMED Code(s): 39204079375240737 Plan: 1patient presented to hospital with syncopal episode in this patient who did have a features of SIRS/sepsis concerning for possible UTI and pneumonia right leg wound and cellulitis while patient has received adequate antibiotic therapy 2-local wound care to the right lower extremity wound with a dry Aquacel dressing followed by Ray wrap change every 48 hour Patient remains to be afebrile and is being monitored closely off antibiotics Dictation was produced using [employer] dictation software. please excuse any grammatical, word or spelling errors. Time with Patient: Less than 30
--- NOTE | 2023-11-20 13:33 | P.PN ---
Subjective Progress Note Date: 11/20/23 Principal diagnosis: Reason for follow-up is right lower extremity wound Patient is a 68-year-old female past medical history significant for hypertension hyperlipidemia diabetes mellitus depression with initial presentation to the hospital with SIRS/sepsis concerning for pneumonia UTI right leg wound and cellulitis. On today's evaluation that is 11/20/2023, the patient continues to be afebrile, the patient is on 2 L nasal cannula oxygen and breathing comfortably, the Pt denies having any chest pain or cough, the patient denies having any abdominal pain no vomiting or any diarrhea has been reported by the nursing staff . Patient did have a creatinine 2.6 electrolytes are normal Objective - Vital Signs Vital signs: Vital Signs Temp 97.6 F 11/20/23 07:16 Pulse 84 11/20/23 08:00 Resp 17 11/20/23 08:00 BP 155/88 11/20/23 07:16 Pulse Ox 96 11/20/23 07:16 FiO2 60 10/29/23 04:22 Intake & Output 11/19/23 11/20/23 11/20/23 18:59 06:59 18:59 Output Total 800 175 Balance -800 -175 Output: Urine 800 175 Other: Voiding Method Indwelling Catheter Indwelling Catheter Indwelling Catheter ABP, PAP, CO, CI - Last Documented Arterial Blood Pressure 137/52 - Exam GENERAL DESCRIPTION: An elderly female lying in bed in no distress RESPIRATORY SYSTEM: Unlabored breathing , decreased breath sounds at bases HEART: S1 S2 regular rate and rhythm , ABDOMEN: Soft , no tenderness EXTREMITIES: Right leg wound is currently dressed - Labs CBC & Chem 7: 11/18/23 02:12 11/20/23 07:32 Labs: Abnormal Lab Results - Last 24 Hours (Table) 11/20/23 11/20/23 Range/Units 07:32 11:42 Creatinine 2.6 H (0.6-1.5) mg/dL Est GFR (CKD-EPI) 20 L (>=60) BUN/Creatinine Ratio 8.15 L (12.00-20.00) Ratio POC Glucose (mg/dL) 113 H (70-110) mg/dL Calcium 8.6 L (8.7-10.3) mg/dL Assessment and Plan (1) Sepsis Current Visit: Yes Status: Acute Code(s): A41.9 - SEPSIS, UNSPECIFIED ORGANISM SNOMED Code(s): 67196939 (2) UTI (urinary tract infection) Current Visit: Yes Status: Acute Code(s): N39.0 - URINARY TRACT INFECTION, SITE NOT SPECIFIED SNOMED Code(s): 14491241 (3) Leg wound, right Current Visit: Yes Status: Acute Code(s): S81.801A - UNSPECIFIED OPEN WOUND, RIGHT LOWER LEG, INITIAL ENCOUNTER SNOMED Code(s): 33483095242741833 Plan: 1patient presented to hospital with syncopal episode in this patient who did h ave a features of SIRS/sepsis concerning for possible UTI and pneumonia right leg wound and cellulitis while patient has received adequate antibiotic therapy and is currently being monitored closely off antibiotic therapy 2-local wound care to the right lower extremity wound with a dry Aquacel dress ing followed by Ray wrap change every 48 hour Dictation was produced using [employer] dictation software. please excuse any grammatical, word or spelling errors. Time with Patient: Less than 30
[2023-11-20 15:17] VITALS: BMI 45.3
[2023-11-20 16:40] LABS: Glucose,Whole Blood 109 mg/dL (70-110)
[2023-11-20 20:36] LABS: Glucose,Whole Blood 242 mg/dL (70-110)
[2023-11-21 00:29] LABS: Glucose,Whole Blood 105 mg/dL (70-110)
[2023-11-21 05:44] LABS: Glucose,Whole Blood 102 mg/dL (70-110)
[2023-11-21 09:26] VITALS: RESP 17
[2023-11-21 09:32] LABS: African American GFR (CKD) 26 (>60 ml/min/1.73 sqM); Anion Gap 1 mmol/L; Blood Urea Nitrogen 24 mg/dL (7-17); Calcium 8.5 mg/dL (8.4-10.2); Carbon Dioxide 32 mmol/L (22-30); Chloride 104 mmol/L (98-107); Glucose 97 mg/dL (74-99); Magnesium 1.5 mg/dL (1.6-2.3); Non-African American GFR(CKD) 22 (>60 ml/min/1.73 sqM); Potassium 3.6 mmol/L (3.5-5.1); Sodium 137 mmol/L (137-145)
--- NOTE | 2023-11-21 10:41 | P.PN ---
Subjective Patient is seen in follow-up for acute kidney injury and chronic kidney disease. Renal function better. Sodium level 137. On D5W. Oral intake fair. Nonoliguric. Vital signs are stable. General: No acute distress. HEENT: Head exam is unremarkable. On nasal cannula. LUNGS: No audible rhonchi or wheezes. HEART: Rate and Rhythm are regular. ABDOMEN: Obese, nontender. EXTREMITITES: Trace edema. Objective - Vital Signs Vital signs: Vital Signs Temp 97.3 F L 11/21/23 08:01 Pulse 82 11/21/23 08:01 Resp 17 11/21/23 08:01 BP 146/83 11/21/23 08:01 Pulse Ox 96 11/21/23 08:31 FiO2 60 10/29/23 04:22 Intake & Output 11/20/23 11/21/23 11/21/23 18:59 06:59 18:59 Output Total 600 300 Balance -600 -300 Weight 123.7 kg Output: Urine 600 300 Other: Voiding Method Indwelling Catheter Indwelling Catheter ABP, PAP, CO, CI - Last Documented Arterial Blood Pressure 137/52 - Labs CBC & Chem 7: 11/18/23 02:12 11/21/23 08:39 Labs: Abnormal Lab Results - Last 24 Hours (Table) 11/20/23 11/20/23 11/21/23 Range/Units 11:42 20:31 08:39 Carbon Dioxide 32 H (22-30) mmol/L BUN 24 H (7-17) mg/dL Creatinine 2.24 H (0.52-1.04) mg/dL POC Glucose (mg/dL) 113 H 242 H (70-110) mg/dL Magnesium 1.5 L (1.6-2.3) mg/dL Microbiology - Last 24 Hours (Table) 10/28/23 05:45 Gram Stain - Final Sputum Sputum Culture - Final Assessment and Plan Plan: Assessment: 1. Chronic kidney disease stage IV. Renal function better. Creatinine 2.24 today. 2. Volume overload. Improved with diuresis. 3. Sepsis secondary to pneumonia and cellulitis. s/p antibiotics. 4. Hypernatremia from lack of oral water intake and free water diuresis. Improved with D5W. 5. Anemia of chronic kidney disease maintained on Aranesp. Iron replete. 6. Hypokalemia from diuresis. Replaced. Plan: Continue to hold torsemide. Stop D5W. Replace potassium and magnesium. Encourage oral intake, including free water. Avoid nephrotoxins. Continue to monitor renal function and urine output.
[2023-11-21] MEDS: POTASSIUM CHLORIDE ER 20 MEQ TAB.ER PO STA (10:56)
--- NOTE | 2023-11-21 11:54 | P.PN ---
Subjective Progress Note Date: 11/21/23 Principal diagnosis: Cardiac arrest. The patient is seen today November 18, 2023 in follow-up on the regular medical floor. She is currently awake and alert in no acute distress. 2 L/min per nasal cannula. She is afebrile. Hemodynamically stable. 272. Sodium 141. Potassium 3.2. Bicarb 31. BUN 24. Creatinine 2.54. Glucose 94. She is continued on DuoNeb inhalations. Completed antibiotics. Remains anticoagulated with Eliquis. The patient is seen today November 19, 2023 and follow-up on the regular medical floor. She is sitting up in bed. Awake and alert in no acute distress. She is maintaining O2 saturation in the 90s on 2 L/min per nasal cannula. No IV fluid s. She is still having issues with some altered mental status. Carotid Dopplers revealed no significant carotid stenosis. MRI of the brain is pending. Blood and sputum cultures revealed no growth. Sodium 146. Potassium 4.0. Bicarb 28. BUN 22. Creatinine 2.6. Glucose 88. She remains on DuoNeb inhalations, Pulmicort inhalations. Anticoagulated with Eliquis. The patient is seen today November 20, 2023 in follow-up on the regular medical floor. She is sitting up in bed. Awake and alert in no acute distress. Maintaining O2 saturations in the 90s on 2 L/min per nasal cannula. RI of the brain revealed no acute intracranial process. Barium swallow was reviewed. The patient is tolerating a dysphagia level 3 chopped diet. Sodium 143. Potassium 3.7. Bicarb 29. BUN 21. Creatinine 2.6. Glucose 107. Maru on bronchodilators. Anticoagulated with Eliquis. Progress note dated November 21, 2023. 68-year-old female seen today in room 480. The patient is on D5W at 50 cc an hour. She is getting oxygen by nasal cannula 2 L, although she is not wearing it. The patient is scheduled to be discharged to a rehab facility/group home. The patient does have some chronic changes to the lower extremities, consistent with cellulitis and/or CHF. Current laboratory data includes a glucose 102, calcium 8.5, magnesium 1.5, sodium 137, potassium 3.6, chlorides 104, CO2 32, BUN 24, and creatinine 2.24. Blood and sputum sampling is negative. Objective - Vital Signs Vital signs: Vital Signs Temp 97.3 F L 11/21/23 08:01 Pulse 82 11/21/23 08:01 Resp 17 11/21/23 08:01 BP 146/83 11/21/23 08:01 Pulse Ox 96 11/21/23 08:31 FiO2 60 10/29/23 04:22 Intake & Output 11/20/23 11/21/23 11/21/23 18:59 06:59 18:59 Output Total 600 300 Balance -600 -300 Weight 123.7 kg Output: Urine 600 300 Other: Voiding Method Indwelling Catheter Indwelling Catheter ABP, PAP, CO, CI - Last Documented Arterial Blood Pressure 137/52 - Exam No acute distress, oriented 3. HEENT examination is grossly unremarkable. Neck supple. Full range of motion. No adenopathy thyromegaly or neck vein distention. Cardiovascular examination reveals regular rhythm rate. S1-S2 normal. No S3 or S4. No discernible murmur noted. Heart sounds are distant. Heart rate 82 bpm. Lungs reveal clear breath sounds. Breath sounds are equal bilaterally. No adventitious lung sounds including wheezes rhonchi or crackles. Abdomen soft bowel sounds are heard. No masses or tenderness. Extremities are intact. No clubbing. Minimal lower extremity edema. Chronic venous stasis changes noted. Skin is without rash or lesion. Neurologic examination is brief but nonfocal. - Labs CBC & Chem 7: 11/18/23 02:12 11/21/23 08:39 Labs: Abnormal Lab Results - Last 24 Hours (Table) 11/20/23 11/21/23 Range/Units 20:31 08:39 Carbon Dioxide 32 H (22-30) mmol/L BUN 24 H (7-17) mg/dL Creatinine 2.24 H (0.52-1.04) mg/dL POC Glucose (mg/dL) 242 H (70-110) mg/dL Magnesium 1.5 L (1.6-2.3) mg/dL Microbiology - Last 24 Hours (Table) 10/28/23 05:45 Gram Stain - Final Sputum Sputum Culture - Final Assessment and Plan Assessment: Acute hypoxic respiratory failure secondary to suspected aspiration pneumonia. Cellulitis of the right lower extremity. Peripheral vascular occlusive disease. Hypertension. Diabetes mellitus. Hyperlipidemia. Acute on chronic kidney disease. Obesity. Altered mental status, MRI of the brain revealed no acute intracranial process. Plan: Plan dated November 21, 2023. The patient is doing very well. The patient is currently on D5W at 50 cc an hour. The patient is getting O2, at 2 L. She is not wearing it. Clinically, the patient is pretty much at baseline. She was a bit confused as to discharge plans, as she states that she was going home, but she is actually going to one of the local group home/rehab facilities. Labs, x-rays, and all medications are reviewed. Prognosis is guarded. We will continue to follow make recommendations. Time with Patient: Less than 30
[2023-11-21 12:01] LABS: Glucose,Whole Blood 108 mg/dL (70-110)
--- NOTE | 2023-11-21 12:35 | P.PN ---
Subjective Progress Note Date: 11/21/23 Principal diagnosis: Reason for follow-up is right lower extremity wound Patient is a 68-year-old female past medical history significant for hypertension hyperlipidemia diabetes mellitus depression with initial presentation to the hospital with SIRS/sepsis concerning for pneumonia UTI right leg wound and cellulitis. On today's evaluation that is 11/21/2023, Patient is afebrile patient is currently on 2 L current oxygen and denies having any shortness of breath, the patient denies any chest pain or cough, the patient denies any nausea vomiting did not have any abdominal pain and no diarrhea. Patient did have a creatinine of 2.24 blood and sputum culture negative Objective - Vital Signs Vital signs: Vital Signs Temp 97.3 F L 11/21/23 08:01 Pulse 82 11/21/23 08:01 Resp 17 11/21/23 08:01 BP 146/83 11/21/23 08:01 Pulse Ox 96 11/21/23 08:31 FiO2 60 10/29/23 04:22 Intake & Output 11/20/23 11/21/23 11/21/23 18:59 06:59 18:59 Output Total 600 300 Balance -600 -300 Weight 123.7 kg Output: Urine 600 300 Other: Voiding Method Indwelling Catheter Indwelling Catheter ABP, PAP, CO, CI - Last Documented Arterial Blood Pressure 137/52 - Exam GENERAL DESCRIPTION: An elderly female lying in bed in no distress RESPIRATORY SYSTEM: Unlabored breathing , decreased breath sounds at bases HEART: S1 S2 regular rate and rhythm , ABDOMEN: Soft , no tenderness EXTREMITIES: Right leg wound is currently dressed - Labs CBC & Chem 7: 11/18/23 02:12 11/21/23 08:39 Labs: Abnormal Lab Results - Last 24 Hours (Table) 11/20/23 11/21/23 Range/Units 20:31 08:39 Carbon Dioxide 32 H (22-30) mmol/L BUN 24 H (7-17) mg/dL Creatinine 2.24 H (0.52-1.04) mg/dL POC Glucose (mg/dL) 242 H (70-110) mg/dL Magnesium 1.5 L (1.6-2.3) mg/dL Microbiology - Last 24 Hours (Table) 10/28/23 05:45 Gram Stain - Final Sputum Sputum Culture - Final Assessment and Plan (1) Sepsis Current Visit: Yes Status: Acute Code(s): A41.9 - SEPSIS, UNSPECIFIED ORGANISM SNOMED Code(s): 32506052 (2) UTI (urinary tract infection) Current Visit: Yes Status: Acute Code(s): N39.0 - URINARY TRACT INFECTION, SITE NOT SPECIFIED SNOMED Code(s): 93258745 (3) Leg wound, right Current Visit: Yes Status: Acute Code(s): S81.801A - UNSPECIFIED OPEN WOUND, RIGHT LOWER LEG, INITIAL ENCOUNTER SNOMED Code(s): 18033733714406596 Plan: 1patient presented to hospital with syncopal episode in this patient who did have a features of SIRS/sepsis concerning for possible UTI and pneumonia right leg wound and cellulitis while patient has received adequate antibiotic therapy and is currently being monitored closely off antibiotic therapy 2-patient right leg wound is currently healing and is currently being treated with a dry Aquacel dressing followed by Ray wrap change every 48 hour Dictation was produced using [facility] dictation software. please excuse any grammatical, word or spelling errors. Time with Patient: Less than 30
--- NOTE | 2023-11-21 13:00 | XR ---
Patient: Nuria Granado A Ordering Physician: Unknown, Unknown ID: [id number] Phone, Pager: Phone: N/A Pager: N/A : 1955 Age/Gender: 68Y, F Primary Location: N/A Procedure: XR Chest 1 View Study D ate: 11/04/2023 5:22:00 AM EXAMINATION TYPE: XR chest 1V DATE OF EXAM: 11/18/2023 1:18 PM CLINICAL INDICATION: Low to COMPARISON: Chest radiographs from 10/29/2023 TECHNIQUE: XR chest 1V Frontal view of the chest. FINDINGS: Lungs/Pleura: Suspected layering right pleural effusion. There is no evidence of pleural effusion, fo tra consolidation, or pneumothorax. Pulmonary vascularity: Pulmonary vascular congestion. Heart/mediastinum: Cardiomediastinal silhouette is enlarged. Musculoskeletal: No acute osseous pathology. Other findings: None Lines/Tubes: Right internal jugular central venous catheter with distal tip at the cavoatrial junction. IMPRESSION: 1. The lung volumes with suspected layering pleural effusion. Correlate with serum BNP to exclude a component of congestive heart failure.
--- NOTE | 2023-11-21 13:00 | P.PN ---
Subjective Progress Note Date: 11/21/23 68-year-old female presenting to the emergency department with syncopal episodes. Episode started within the last hour. [facility] from [facility] and had a syncopal episode there. There is questionable hypotension. Patient did have 1 syncopal episode by EMS and was drowsy several times however blood pressure they obtained was not hypotensive. Patient admits to feeling drowsy and fatigued at this time however has no other complaints. No chest pain. No dyspnea. Patient denies confusion. According to the chart patient was [facility] the jail facility because of mottling of bilateral lower extremity difficulty breathing and confusion; in the ED patient was found to be bradycardic with rhythm strip showing 6-second pauses; EKG revealed sinus bradycardia with prolonged NH i nterval --Patient was evaluated by cardiology in ED and deemed to have severe bradycardia with sick sinus syndrome and 6-second pauses with slow junctional escape beats; patient was also found to be hypotensive and was placed on norepinephrine for blood pressure support and bradycardia; patient was taken to the [facility] for TVP; patient is on anticoagulation therapy which was placed on hold given concern for stroke with patient with mental status change The patient was taken to the cardiac [facility] T[facility], underwent temporary transvenous pacemaker placement using left femoral approach. In the cardiac catheterization lab having a pacemaker implantation, patient was noted to have significant hypotension requiring maximal therapy with norepinephrine and dopamine at 25 mcg/kg/min. Patient also received Ronnell-Synephrine, continues to have significant episodes of hypotension and worsening mental status/encephalopathy. Patient was sent to the ICU, and she was intubated in the intensive care unit. 11/18/2023 Patient was hypernatremic over the weekend because she was not eating and drinking well she required some D5W, currently improved. She is awake alert but somewhat sleepy and lethargic. She denies any specific complaint. Sitter at bedside Vitals are stable and currently saturating 93% on 2 L oxygen via nasal cannula and she is afebrile. Labs today reviewed showing hemoglobin 9.9. BMP showing potassium 3.2 which is replaced. Creatinine at baseline 2.5. Glucose controlled. Magnesium 1.6 11/18. Patient seen and examined. Labs done this morning showed sodium 146, potassium 4, BUN 21.9, creatinine 2.6 11/19. Patient seen and examined. MRI brain done showed no evidence of intracranial mass or acute/subacute infarct. EEG negative for any seizure-like activity . Patient currently on D5W, sodium level is improved. 11/20. Patient seen and examined. IV fluids were discontinued by nephrology. REVIEW OF SYSTEMS: CONSTITUTIONAL: No fever, no malaise,. CARDIOVASCULAR: No chest pain, no palpitations, no syncope. PULMONARY: No shortness of breath, no cough, GASTROINTESTINAL: No diarrhea, no nausea, no vomiting, no abdominal pain. NEUROLOGICAL: No headaches, no weakness, PHYSICAL EXAMINATION: GENERAL: The patient is alert and oriented x1, not in any acute distress. Well developed, well nourished. HEENT: Pupils are round and equally reacting to light. EOMI. No scleral icterus. No conjunctival pallor. Normocephalic, atraumatic. No pharyngeal erythema. No thyromegaly. CARDIOVASCULAR: S1 and S2 present. No murmurs, rubs, or gallops. PULMONARY: Chest is clear to auscultation, no wheezing or crackles. ABDOMEN: Soft, nontender, nondistended, normoactive bowel sounds. No palpable organomegaly. MUSCULOSKELETAL: No joint swelling or deformity. EXTREMITIES: No cyanosis, clubbing, or pedal edema. NEUROLOGICAL: Gross neurological examination did not reveal any focal deficits. SKIN: No rashes. Assessment and plan UTI right leg cellulitis Hypertension Acute hypoxic respiratory failure improved Sick sinus syndrome CKD Hypernatremia improved Peripheral vascular disease Diabetes mellitus Monitor vital signs Monitor CBC Monitor CMP Encourage oral hydration MRI brain done showed no evidence of intracranial mass or acute/subacute infarct. EEG negative for any seizure-like activity DC fluids Neurology following Nephrology following PT and OT recommend rehab Labs and medication were reviewed.. Continue same treatment. Continue with symptomatic treatment. Resume home medication. Monitor labs and vitals. DVT and GI prophylaxis. Further recommendations as per clinical course of the patient Dictation was produced using [employer] dictation software. please excuse any grammatical, word or spelling errors. Objective - Vital Signs Vital signs: Vital Signs Temp 97.3 F L 11/21/23 08:01 Pulse 82 11/21/23 08:01 Resp 17 11/21/23 08:01 BP 146/83 11/21/23 08:01 Pulse Ox 96 11/21/23 08:31 FiO2 60 08/05/24 04:22 Intake & Output 11/20/23 11/21/23 11/21/23 18:59 06:59 18:59 Output Total 600 300 Balance -600 -300 Weight 123.7 kg Output: Urine 600 300 Other: Voiding Method Indwelling Catheter Indwelling Catheter ABP, PAP, CO, CI - Last Documented Arterial Blood Pressure 137/52 - Labs CBC & Chem 7: 11/18/23 02:12 11/21/23 08:39 Labs: Abnormal Lab Results - Last 24 Hours (Table) 11/20/23 11/21/23 Range/Units 20:31 08:39 Carbon Dioxide 32 H (22-30) mmol/L BUN 24 H (7-17) mg/dL Creatinine 2.24 H (0.52-1.04) mg/dL POC Glucose (mg/dL) 242 H (70-110) mg/dL Magnesium 1.5 L (1.6-2.3) mg/dL Microbiology - Last 24 Hours (Table) 10/28/23 05:45 Gram Stain - Final Sputum Sputum Culture - Final
[2023-11-21 14:05] LABS: African American GFR (CKD) 22 (>60 ml/min/1.73 sqM); Anion Gap 7 mmol/L; Blood Urea Nitrogen 51 mg/dL (7-17); Calcium 7.5 mg/dL (8.4-10.2); Carbon Dioxide 16 mmol/L (22-30); Chloride 106 mmol/L (98-107); Glucose 137 mg/dL (74-99); Non-African American GFR(CKD) 19 (>60 ml/min/1.73 sqM); Potassium 5.3 mmol/L (3.5-5.1); Sodium 129 mmol/L (137-145)
[2023-11-21 14:06] LABS: HCT 27.8 % (34.0-46.0); HGB 8.9 gm/dL (11.4-16.0); MCV 91.6 fL (80.0-100.0); RBC 3.04 m/uL (3.80-5.40); WBC 17.9 k/uL (3.8-10.6)
[2023-11-21 14:07] LABS: Basophils % (A) 0 %; Eosinophils # (A) 0.1 k/uL (0-0.7); Eosinophils % (A) 0 %; Lymphocytes # (A) 0.5 k/uL (1.0-4.8); Lymphocytes % (A) 3 %; MCH 29.4 pg (25.0-35.0); MCHC 32.1 g/dL (31.0-37.0); Monocytes # (A) 0.7 k/uL (0-1.0); Monocytes % (A) 4 %; Neutrophils # (A) 16.5 k/uL (1.3-7.7); Neutrophils % (A) 92 %; Platelet Count 89 k/uL (150-450)
[2023-11-21 14:08] LABS: Basophils # (A) 0.1 k/uL (0-0.2)
[2023-11-21 16:46] LABS: Glucose,Whole Blood 117 mg/dL (70-110)
[2023-11-21] MEDS ORDERED: ATORVASTATIN 20 MG TAB ONE (21:00)
[2023-11-21] MEDS ORDERED: APIXABAN 5 MG TAB ONE (21:00)
[2023-11-21] MEDS ORDERED: FERROUS SULFATE 325 MG TAB PO ONE (21:00)
[2023-11-21 21:06] LABS: Glucose,Whole Blood 118 mg/dL (70-110)
[2023-11-22 05:28] LABS: Glucose,Whole Blood 89 mg/dL (70-110)
--- NOTE | 2023-11-22 10:09 | P.DS ---
Providers Date of admission: 10/27/23 16:10 Expected date of discharge: 11/22/23 Attending physician: Danny Green MD Consults: 10/27/23 16:10 Consult Physician Stat Consulting Provider: Parvez Nix Consult Reason/Comments: critical care Do you want consulting provider notified?: Already Contacted 10/27/23 23:07 Consult Physician Stat Consulting Provider: Belkis Hoffman Consult Reason/Comments: CKD Do you want consulting provider notified?: Already Contacted 10/27/23 23:09 Consult Physician Stat Consulting Provider: Tod Bhakta Consult Reason/Comments: Fixed and dilated pupils Do you want consulting provider notified?: Already Contacted 10/28/23 06:19 Consult Physician Stat Consulting Provider: Siomara Watts Consult Reason/Comments: Wound RLE Do you want consulting provider notified?: Already Contacted 10/28/23 14:43 Consult Physician Routine Consulting Provider: Tapan Marin Consult Reason/Comments: History of AV Fistula Do you want consulting provider notified?: Yes Primary care physician: Marcy Adams Hospital Course: Discharge diagnoses; UTI right leg cellulitis Hypertension Acute hypoxic respiratory failure improved Sick sinus syndrome CKD Hypernatremia improved Peripheral vascular disease Diabetes mellitus Hospital course; 68-year-old female presenting to the emergency department with syncopal episodes. Episode started within the last hour. Patient comes from care home and had a syncopal episode there. There is questionable hypotension. Patient did have 1 syncopal episode by EMS and was drowsy several times however blood pressure they obtained was not hypotensive. Patient admits to feeling drowsy and fatigued at this time however has no other complaints. No chest pain. No dyspnea. Patient denies confusion. According to the chart patient was transferred from the care home facility because of mottling of bilateral lower extremity difficulty breathing and confusion; in the ED patient was found to be bradycardic with rhythm strip showing 6-second pauses; EKG revealed sinus bradycardia with prolonged TN interval --Patient was evaluated by cardiology in ED and deemed to have severe bradycardia with sick sinus syndrome and 6-second pauses with slow junctional escape beats; patient was also found to be hypotensive and was placed on norepinephrine for blood pressure support and bradycardia; patient was taken to the [facility] for TVP; patient is on anticoagulation therapy which was placed on hold given concern for stroke with patient with mental status change The patient was taken to the cardiac [facility], underwent temporary transvenous pacemaker placement using left femoral approach. In the cardiac catheterization lab having a pacemaker implantation, patient was noted to have significant hypotension requiring maximal therapy with norepinephrine and dopamine at 25 mcg/kg/min. Patient also received Ronnell-Synephrine, continues to have significant episodes of hypotension and worsening mental status/encephalopathy. Patient was sent to the ICU, and she was intubated in the intensive care unit. 11/18/2023 Patient was hypernatremic over the weekend because she was not eating and drinking well she required some D5W, currently improved. She is awake alert but somewhat sleepy and lethargic. She denies any specific complaint. Sitter at bedside Vitals are stable and currently saturating 93% on 2 L oxygen via nasal cannula and she is afebrile. Labs today reviewed showing hemoglobin 9.9. BMP showing potassium 3.2 which is replaced. Creatinine at baseline 2.5. Glucose controlled. Magnesium 1.6 11/18. Patient seen and examined. Labs done this morning showed sodium 146, potassium 4, BUN 21.9, creatinine 2.6 11/19. Patient seen and examined. MRI brain done showed no evidence of intracranial mass or acute/subacute infarct. EEG negative for any seizure-like activity . Patient currently on D5W, sodium level is improved. 11/20. Patient seen and examined. IV fluids were discontinued by nephrology. 11/21. Patient seen and examined. Patient is doing better, currently off the fluids. Patient is being cleared by nephrology, pulmonology and ID. Discharged in stable condition PHYSICAL EXAMINATION: GENERAL: The patient is alert and oriented x1, not in any acute distress. Well developed, well nourished. HEENT: Pupils are round and equally reacting to light. EOMI. No scleral icterus. No conjunctival pallor. Normocephalic, atraumatic. No pharyngeal erythema. No thyromegaly. CARDIOVASCULAR: S1 and S2 present. No murmurs, rubs, or gallops. PULMONARY: Chest is clear to auscultation, no wheezing or crackles. ABDOMEN: Soft, nontender, nondistended, normoactive bowel sounds. No palpable organomegaly. MUSCULOSKELETAL: No joint swelling or deformity. EXTREMITIES: No cyanosis, clubbing, or pedal edema. NEUROLOGICAL: Gross neurological examination did not reveal any focal deficits. SKIN: No rashes. Dictation was produced using [employer] dictation software. please excuse any grammatical, word or spelling errors. Patient Condition at Discharge: Fair Plan - Discharge Summary Discharge Rx Participant: No New Discharge Prescriptions: Continue Ergocalciferol [Vitamin D2 (1250 Mcg = 26696 Iu)] 1,250 mcg PO WE Ferrous Sulfate [Iron] 325 mg PO BID Insulin Lispro [Admelog Solostar] See Protocol SQ ACHS Ipratropium-Albuterol Nebulize [Duoneb 0.5 mg-3 mg/3 ml Soln] 3 ml INHALATION RT-BID Apixaban [Eliquis] 5 mg PO BID Budesonide [Pulmicort] 0.5 mg INHALATION RT-BID Atorvastatin [Lipitor] 20 mg PO HS Dialyvite 1 tab PO DAILY Insulin Lispro [Admelog Solostar] 2 units SQ DAILY@1100 Acetaminophen Tab [Tylenol] 650 mg PO Q6H PRN PRN Reason: Pain Dulaglutide [Trulicity] 0.75 mg SQ FR sitaGLIPtin [Januvia] 50 mg PO DAILY Thiamine [Vitamin B-1] 100 mg PO DAILY Levothyroxine Sodium [Synthroid] 175 mcg PO DAILY Insulin Glargine [Lantus Vial] 10 unit SQ DAILY Famotidine [Pepcid] 10 mg PO DAILY L.acidoph,Paracasei, B.lactis [Probiotic] 1 cap PO DAILY Discontinued Metoprolol Tartrate [Lopressor] 25 mg PO DAILY amLODIPine [Norvasc] 10 mg PO DAILY Potassium Chloride ER [K-Dur 20] 20 meq PO Q48H Bumetanide [Bumex] 1 mg PO DAILY Bumetanide [Bumex] 1 mg PO Q48H Atorvastatin [Lipitor] 10 mg PO DAILY Discharge Medication List Dialyvite 1 tab PO DAILY 08/09/22 [History] Ergocalciferol [Vitamin D2 (1250 Mcg = 32541 Iu)] 1,250 mcg PO WE 08/09/22 [History] Ferrous Sulfate [Iron] 325 mg PO BID 08/09/22 [History] Acetaminophen Tab [Tylenol] 650 mg PO Q6H PRN 10/27/23 [History] Apixaban [Eliquis] 5 mg PO BID 10/27/23 [History] Atorvastatin [Lipitor] 20 mg PO HS 10/27/23 [History] Budesonide [Pulmicort] 0.5 mg INHALATION RT-BID 10/27/23 [History] Dulaglutide [Trulicity] 0.75 mg SQ FR 10/27/23 [History] Famotidine [Pepcid] 10 mg PO DAILY 10/27/23 [History] Insulin Glargine [Lantus Vial] 10 unit SQ DAILY 10/27/23 [History] Insulin Lispro [Admelog Solostar] 2 units SQ DAILY@1100 10/27/23 [History] Insulin Lispro [Admelog Solostar] See Protocol SQ ACHS 10/27/23 [History] Ipratropium-Albuterol Nebulize [Duoneb 0.5 mg-3 mg/3 ml Soln] 3 ml INHALATION RT-BID 10/27/23 [History] L.acidoph,Paracasei, B.lactis [Probiotic] 1 cap PO DAILY 10/27/23 [History] Levothyroxine Sodium [Synthroid] 175 mcg PO DAILY 10/27/23 [History] Thiamine [Vitamin B-1] 100 mg PO DAILY 10/27/23 [History] sitaGLIPtin [Januvia] 50 mg PO DAILY 10/27/23 [History] Follow up Appointment(s)/Referral(s): Marcy Adams MD [Primary Care Provider] - 1-2 days [facility], [NON-STAFF] - As Needed Discharge Disposition: TRANSFER TO SNF/ECF
--- NOTE | 2023-11-22 10:27 | P.PN ---
Subjective Patient is seen in follow-up for acute kidney injury and chronic kidney disease. Renal function better. Creatinine 2.24 yesterday. Oral intake fair. Nonoliguric. Vital signs are stable. General: No acute distress. HEENT: Head exam is unremarkable. On room air. LUNGS: No audible rhonchi or wheezes. HEART: Rate and Rhythm are regular. ABDOMEN: Obese, nontender. EXTREMITITES: Trace edema. Objective - Vital Signs Vital signs: Vital Signs Temp 98.1 F 11/22/23 06:59 Pulse 82 11/22/23 08:17 Resp 17 11/22/23 08:17 BP 155/90 11/22/23 06:59 Pulse Ox 93 L 11/22/23 06:59 FiO2 60 10/29/23 04:22 Intake & Output 11/21/23 11/22/23 11/22/23 18:59 06:59 18:59 Output Total 450 Balance -450 Output: Urine 450 Other: Voiding Method Indwelling Catheter Indwelling Catheter ABP, PAP, CO, CI - Last Documented Arterial Blood Pressure 137/52 - Labs CBC & Chem 7: 11/18/23 02:12 11/21/23 08:39 Labs: Abnormal Lab Results - Last 24 Hours (Table) 10/29/23 10/29/23 11/18/23 Range/Units 10:12 10:12 02:12 WBC 17.9 H (3.8-10.6) k/uL RBC 3.04 L 3.34 L (3.80-5.40) m/uL Hgb 8.9 L D 9.9 L (11.4-16.0) gm/dL Hct 27.8 L 31.8 L (34.0-46.0) % RDW 17.0 H 17.3 H (11.5-15.5) % Plt Count 89 L (150-450) k/uL Neutrophils # 16.5 H (1.3-7.7) k/uL Lymphocytes # 0.5 L 0.9 L (1.0-4.8) k/uL Sodium 129 L (137-145) mmol/L Potassium 5.3 H (3.5-5.1) mmol/L Carbon Dioxide 16 L (22-30) mmol/L BUN 51 H (7-17) mg/dL Creatinine 2.54 H (0.52-1.04) mg/dL Glucose 137 H (74-99) mg/dL POC Glucose (mg/dL) (70-110) mg/dL Calcium 7.5 L (8.4-10.2) mg/dL 11/21/23 11/21/23 Range/Units 16:44 21:04 WBC (3.8-10.6) k/uL RBC (3.80-5.40) m/uL Hgb (11.4-16.0) gm/dL Hct (34.0-46.0) % RDW (11.5-15.5) % Plt Count (150-450) k/uL Neutrophils # (1.3-7.7) k/uL Lymphocytes # (1.0-4.8) k/uL Sodium (137-145) mmol/L Potassium (3.5-5.1) mmol/L Carbon Dioxide (22-30) mmol/L BUN (7-17) mg/dL Creatinine (0.52-1.04) mg/dL Glucose (74-99) mg/dL POC Glucose (mg/dL) 117 H 118 H (70-110) mg/dL Calcium (8.4-10.2) mg/dL Assessment and Plan Plan: Assessment: 1. Chronic kidney disease stage IV. Renal function better. Creatinine 2.24 yesterday. 2. Volume overload. Improved with diuresis. 3. Sepsis secondary to pneumonia and cellulitis. s/p antibiotics. 4. Hypernatremia from lack of oral water intake and free water diuresis. Improved with D5W. 5. Anemia of chronic kidney disease maintained on Aranesp. Iron replete. 6. Hypokalemia from diuresis. Replaced. 7. Hypomagnesemia from poor intake. Replaced. Plan: Continue to hold torsemide. Remains off IV fluids. Replace electrolytes as needed. Encourage oral intake, including free water. Avoid nephrotoxins. Continue to monitor renal function and urine output.
[2023-11-22 11:17] LABS: BUN/Creat Ratio 8.61 Ratio (12.00-20.00); Blood Urea Nitrogen 19.8 mg/dL (9.0-27.0); Calcium 8.3 mg/dL (8.7-10.3); Carbon Dioxide 28.3 mmol/L (21.6-31.8); Chloride 102 mmol/L (96-109); Glucose 88 mg/dL (70-110); Magnesium 1.5 mg/dL (1.5-2.4); Potassium 3.6 mmol/L (3.5-5.5); Sodium 140 mmol/L (135-145)
[2023-11-22 11:40] LABS: Glucose,Whole Blood 105 mg/dL (70-110)
[2023-11-22] MEDS: amLODIPine 5 MG TAB PO SCH (11:42)
--- NOTE | 2023-11-22 12:29 | P.PN ---
Subjective Progress Note Date: 11/22/23 The patient is seen today November 18, 2023 in follow-up on the regular medical floor. She is currently awake and alert in no acute distress. 2 L/min per nasal cannula. She is afebrile. Hemodynamically stable. 272. Sodium 141. Potassium 3.2. Bicarb 31. BUN 24. Creatinine 2.54. Glucose 94. She is continued on DuoNeb inhalations. Completed antibiotics. Remains anticoagulated with Eliquis. The patient is seen today November 19, 2023 and follow-up on the regular medical floor. She is sitting up in bed. Awake and alert in no acute distress. She is maintaining O2 saturation in the 90s on 2 L/min per nasal cannula. No IV fluids. She is still having issues with some altered mental status. Carotid Dopplers revealed no significant carotid stenosis. MRI of the brain is pending. Blood and sputum cultures revealed no growth. Sodium 146. Potassium 4.0. Bicarb 28. BUN 22. Creatinine 2.6. Glucose 88. She remains on DuoNeb inhalations, Pulmicort inhalations. Anticoagulated with Eliquis. The patient is seen today November 20, 2023 in follow-up on the regular medical floor. She is sitting up in bed. Awake and alert in no acute distress. Maintaining O2 saturations in the 90s on 2 L/min per nasal cannula. RI of the brain revealed no acute intracranial process. Barium swallow was reviewed. The patient is tolerating a dysphagia level 3 chopped diet. Sodium 143. Potassium 3.7. Bicarb 29. BUN 21. Creatinine 2.6. Glucose 107. Maru on bronchodilators. Anticoagulated with Eliquis. The patient is seen today November 22, 2023 in follow-up on the regular medical floor. She is awake and alert in no acute distress. Sitting up in bed. She is maintaining O2 saturations in the 90s on room air. She has been afebrile. Hemodynamically stable. She has D5W at 50 mL/h. The plan is for [facility] today. Blood and sputum cultures were negative. Sodium 140. Potassium 3.6. Bicarb 28. BUN 20. Creatinine 2.3. Glucose 88. Objective - Vital Signs Vital signs: Vital Signs Temp 98.1 F 11/22/23 06:59 Pulse 82 11/22/23 08:17 Resp 17 08/29/24 08:17 BP 155/90 11/22/23 06:59 Pulse Ox 93 L 11/22/23 06:59 FiO2 60 10/29/23 04:22 Intake & Output 11/21/23 11/22/23 11/22/23 18:59 06:59 18:59 Output Total 450 Balance -450 Output: Urine 450 Other: Voiding Method Indwelling Catheter Indwelling Catheter ABP, PAP, CO, CI - Last Documented Arterial Blood Pressure 137/52 - Exam GENERAL EXAM: Alert, obese, 68-year-old female, sitting up in bed, on room air, comfortable in no apparent distress. HEAD: Normocephalic. EYES: Normal reaction of pupils, equal size. NOSE: Clear with pink turbinates. THROAT: No erythema or exudates. NECK: No masses, no JVD. CHEST: No chest wall deformity. LUNGS: Equal air entry with no crackles, wheeze, rhonchi or dullness. CVS: S1 and S2 normal with no audible murmur, regular rhythm. ABDOMEN: No hepatosplenomegaly, normal bowel sounds, no guarding or rigidity. SPINE: No scoliosis or deformity SKIN: No rashes CENTRAL NERVOUS SYSTEM: No focal deficits, tone is normal in all 4 extremities. EXTREMITIES: There is no peripheral edema. No clubbing, no cyanosis. Peripheral pulses are intact. - Labs CBC & Chem 7: 11/18/23 02:12 11/22/23 05:52 Labs: Abnormal Lab Results - Last 24 Hours (Table) 10/29/23 10/29/23 11/18/23 Range/Units 10:12 10:12 02:12 WBC 17.9 H (3.8-10.6) k/uL RBC 3.04 L 3.34 L (3.80-5.40) m/uL Hgb 8.9 L D 9.9 L (11.4-16.0) gm/dL Hct 27.8 L 31.8 L (34.0-46.0) % RDW 17.0 H 17.3 H (11.5-15.5) % Plt Count 89 L (150-450) k/uL Neutrophils # 16.5 H (1.3-7.7) k/uL Lymphocytes # 0.5 L 0.9 L (1.0-4.8) k/uL Sodium 129 L (137-145) mmol/L Potassium 5.3 H (3.5-5.1) mmol/L Carbon Dioxide 16 L (22-30) mmol/L BUN 51 H (7-17) mg/dL Creatinine 2.54 H (0.52-1.04) mg/dL Est GFR (CKD-EPI) (>=60) BUN/Creatinine Ratio (12.00-20.00) Ratio Glucose 137 H (74-99) mg/dL POC Glucose (mg/dL) (70-110) mg/dL Calcium 7.5 L (8.4-10.2) mg/dL 11/21/23 11/21/23 11/22/23 Range/Units 16:44 21:04 05:52 WBC (3.8-10.6) k/uL RBC (3.80-5.40) m/uL Hgb (11.4-16.0) gm/dL Hct (34.0-46.0) % RDW (11.5-15.5) % Plt Count (150-450) k/uL Neutrophils # (1.3-7.7) k/uL Lymphocytes # (1.0-4.8) k/uL Sodium (137-145) mmol/L Potassium (3.5-5.1) mmol/L Carbon Dioxide (22-30) mmol/L BUN (7-17) mg/dL Creatinine 2.3 H (0.52-1.04) mg/dL Est GFR (CKD-EPI) 23 L (>=60) BUN/Creatinine Ratio 8.61 L (12.00-20.00) Ratio Glucose (74-99) mg/dL POC Glucose (mg/dL) 117 H 118 H (70-110) mg/dL Calcium 8.3 L (8.4-10.2) mg/dL Assessment and Plan Assessment: Acute hypoxic respiratory failure secondary to suspected aspiration pneumonia, recovered and on room air Cellulitis of the right lower extremity Peripheral vascular occlusive disease Hypertension Diabetes mellitus Hyperlipidemia Acute on chronic kidney disease Altered mental status, MRI of the brain revealed no acute intracranial process Plan: The patient was seen and evaluated Labs and medications reviewed Completed antibiotics Continue bronchodilators Stable for discharge from the pulmonary standpoint Plan is to return to [facility] I have personally seen and examined the patient, performed the documentation and the assessment and plan as written. Number of minutes spent on the visit: 10.
[2023-11-22] MEDS: POTASSIUM CHLORIDE ER 20 MEQ TAB.ER PO STA (13:32)
[2023-11-22] MEDS: MAGNESIUM OXIDE 400 MG TAB PO SCH (13:32)
--- NOTE | 2023-11-22 15:27 | P.PN ---
Subjective Progress Note Date: 11/22/23 Principal diagnosis: Reason for follow-up is right lower extremity wound Patient is a 68-year-old female past medical history significant for hypertension hyperlipidemia diabetes mellitus depression with initial presentation to the hospital with SIRS/sepsis concerning for pneumonia UTI right leg wound and cellulitis. On today's evaluation that is 11/22/2023, patient has been afebrile, patient is breathing comfortably and is currently on room air, patient denies having any significant cough no chest pain shortness of breath, patient denies nausea vomiting or diarrhea and no abdominal pain patient denies pain to the right lower extremity. Patient creatinine of 2.3 no CBC was done today Objective - Vital Signs Vital signs: Vital Signs Temp 98.1 F 11/22/23 06:59 Pulse 82 11/22/23 08:17 Resp 17 11/22/23 08:17 BP 155/90 11/22/23 06:59 Pulse Ox 93 L 11/22/23 06:59 FiO2 60 10/29/23 04:22 Intake & Output 11/21/23 11/22/23 11/22/23 18:59 06:59 18:59 Output Total 450 Balance -450 Output: Urine 450 Other: Voiding Method Indwelling Catheter Indwelling Catheter ABP, PAP, CO, CI - Last Documented Arterial Blood Pressure 137/52 - Exam GENERAL DESCRIPTION: An elderly female lying in bed in no distress RESPIRATORY SYSTEM: Unlabored breathing , decreased breath sounds at bases HEART: S1 S2 regular rate and rhythm , ABDOMEN: Soft , no tenderness EXTREMITIES: Right leg wound is currently dressed - Labs CBC & Chem 7: 11/18/23 02:12 11/22/23 05:52 Labs: Abnormal Lab Results - Last 24 Hours (Table) 11/21/23 11/21/23 11/22/23 Range/Units 16:44 21:04 05:52 Creatinine 2.3 H (0.6-1.5) mg/dL Est GFR (CKD-EPI) 23 L (>=60) BUN/Creatinine Ratio 8.61 L (12.00-20.00) Ratio POC Glucose (mg/dL) 117 H 118 H (70-110) mg/dL Calcium 8.3 L (8.7-10.3) mg/dL Assessment and Plan (1) Sepsis Current Visit: Yes Status: Acute Code(s): A41.9 - SEPSIS, UNSPECIFIED ORGANISM SNOMED Code(s): 34508868 (2) UTI (urinary tract infection) Current Visit: Yes Status: Acute Code(s): N39.0 - URINARY TRACT INFECTION, SITE NOT SPECIFIED SNOMED Code(s): 88692442 (3) Leg wound, right Current Visit: Yes Status: Acute Code(s): S81.801A - UNSPECIFIED OPEN WOUND, RIGHT LOWER LEG, INITIAL ENCOUNTER SNOMED Code(s): 95415406474581723 Plan: 1patient presented to hospital with syncopal episode in this patient who did have a features of SIRS/sepsis concerning for possible UTI and pneumonia right leg wound and cellulitis while patient has received adequate antibiotic therapy and is currently being monitored closely off antibiotic therapy 2-patient right leg wound is currently healing and is currently being treated with a dry Aquacel dressing followed by Ray wrap change every 48 hour, no need for antibiotics on discharge Dictation was produced using [employer] dictation software. please excuse any grammatical, word or spelling errors. Time with Patient: Less than 30
[2023-11-22 16:30] VITALS: BP 129/79; PULSE 81; TEMP 97.5
[2023-11-22 17:00] LABS: Glucose,Whole Blood 105 mg/dL (70-110)
[2023-11-23] MEDS ORDERED: INSULIN ASPART (NovoLOG) 100 UNIT/ML VIAL SQ SCH
--- NOTE | 2023-12-04 17:03 | CA ---
Transthoracic Echo Report Name: Nuria Granado Age: 68 Gender: F : 1955 Exam Date: 10/29/2023 08:14 Exam Location: [facility] Ht (in): 62 Wt (lb): 300 Ordering Physician: Pedrito Steward MD Attending/Referring Phys: [employer]ra[employer] Mechanic Lisa Ogden RDCS Procedure CPT: Indications: LVEF and effusion Cardiac Hx: Technical Quality: Poor Contrast 1: Definity Total Dose (mL): 2 Contrast 2: Total Dose (mL): MEASUREMENTS (Male / Female) Normal Values 2D ECHO LV Diastolic Diameter PLAX 4.7 cm 4.2 - 5.9 / 3.9 - 5.3 cm LV Systolic Diameter PLAX 3.2 cm IVS Diastolic Thickness 1.3 cm 0.6 - 1.0 / 0.6 - 0.9 cm LVPW Diastolic Thickness 1.5 cm 0.6 - 1.0 / 0.6 - 0.9 cm LV Relative Wall Thickness 0.6 RV Internal Dim ED PLAX 3.1 cm LA Systolic Diameter LX 4.4 cm 3.0 - 4.0 / 2.7 - 3.8 cm LA Volume 84.5 cm??? 18 - 58 / 22 - 52 cm??? LA Volume Index 33.3 cm???/m??? 16 - 28 cm???/m??? M-MODE Aortic Root Diameter MM 2.8 cm LA Systolic Diameter MM 4.3 cm LA Ao Ratio MM 1.5 AV Cusp Separation MM 1.9 cm DOPPLER AV Peak Velocity 224.5 cm/s AV Peak Gradient 20.2 mmHg AV Mean Velocity 159.2 cm/s AV Mean Gradient 11.2 mmHg AV Velocity Time Integral 50.7 cm LVOT Peak Velocity 115.9 cm/s LVOT Peak Gradient 5.4 mmHg LVOT Velocity Time Integral 25.8 cm TR Peak Velocity 254.0 cm/s TR Peak Gradient 25.8 mmHg Right Atrial Pressure 20.0 mmHg Pulmonary Artery Systolic Pressu 45.8 mmHg Right Ventricular Systolic Press 45.8 mmHg FINDINGS Left Ventricle Left ventricular ejection fraction is estimated at 55-60 %. Moderately increased septal wall thickness. Moderately increased posterior wall thickness. Left ventricular cavity size normal. No obvious regional wall motion abnormalities. Right Ventricle Moderate right ventricular dilatation. Mild pulmonary hypertension. Right Atrium Catheter/pacemaker wire in the right atrial cavity. Moderate right atrial dilatation. Left Atrium Moderately increased left atrial diameter. Mildly increased left atrial volume. Mildly increased left atrial area. Mitral Valve Structurally normal mitral valve. Mitral valve thickened. Mild mitral regurgitation. Aortic Valve Trileaflet aortic valve. Focal thickening of the aortic valve cusps. Mild aortic stenosis with a peak gradient of 20 mmHg and a mean gradient of 11 mmHg. No aortic regurgitation. Tricuspid Valve Mild tricuspid regurgitation. Structurally normal tricuspid valve. Pulmonic Valve Structurally normal pulmonic valve. Pericardium No pericardial or pleural effusion. Aorta Normal size aortic root and proximal ascending aorta. CONCLUSIONS Normal LV systolic function Mild pulmonary hypertension Moderate right atrial enlargement Mild aortic stenosis Previewed by: Dr. Jacques Teresa MD (Electronically Signed) Final Date: 04 December 2023 17:02
--- NOTE | 2023-12-05 15:07 | XR ---
Patient Nuria Granado ID [id number] Order # EXAMINATION TYPE: XR chest 1V DATE OF EXAM: 11/11/2023 COMPARISON: 10/31/2023 INDICATION: Intubated TECHNIQUE: Single frontal view of the chest is obtained. FINDINGS: The heart size is enlarged. The pulmonary vasculature is normal. Bibasilar infiltrates are present. These are worsening over the interval. Small effusions may be deve loping. Endotracheal tube tip is above the milad. Nasogastric tube tip appears to be near the gastroesophage al junction. Distal portion is not clearly identified however and may be obscured by body habitus. Ri ght central venous catheter is present with tip in the superior vena cava region. IMPRESSION: 1. Developing bibasilar infiltrates and small effusions. Follow-up recommended. 2. Cardiomegaly. 3. Lines and catheters discussed above.
--- NOTE | 2023-12-06 08:18 | XR ---
Patient Nuria Granado ID [id number] Order # EXAMINATION TYPE: XR chest 1V DATE OF EXAM: 11/11/2023 COMPARISON: [id number] INDICATION: Extubation TECHNIQUE: Single frontal view of the chest is obtained. FINDINGS: The heart size is enlarged. The pulmonary vasculature is normal. Right lower lobe infiltrate is present. Correlate for atelectasis and pneumonia. Mild infiltrate may be in the retrocardiac left chest, this is improved. Right central venous catheter tip is in the distal superior vena cava region. IMPRESSION: 1. Bibasilar infiltrates. Correlate for atelectasis and pneumonia. Left lower lung field.
--- NOTE | 2023-12-11 09:48 | XR ---
Patient: Nuria Granado A Ordering Physician: Unknown, Unknown ID: [id number] Phone, Pager: Phone: N/A Pager: N/A : 1955 Age/Gender: 68Y, F Primary Location: N/A Procedure: CHEST 2VIEW Study Date: 11/13/2023 6:40:14 AM EXAMINATION TYPE: XR chest 2V DATE OF EXAM: 11/13/2023 COMPARISON: NONE HISTORY: Shortness of breath TECHNIQUE: Frontal and lateral views of the chest are obtained. FINDINGS: Lung volumes are diminished. Basilar atelectasis and/or infiltrates with small effusions. Heart size is stable. Mediastinal structures are stable and grossly unremarkable. No evidence for hilar prominence. Degenerative changes dorsal spine. IMPRESSION: Lung volumes are diminished. Basilar atelectasis and/or infiltrates with small effusions.
== END 2023-11-22 23:30 | DRG 871 ==
LOC: EC 13:15 → 2SICU 16:10 → 4SSUR 10-31 16:37
PROVIDERS: ADMIT Internal Medicine; ATTEND Internal Medicine
PROC: 02HV33Z Insertion of Infusion Device into Superior Vena Cava, Percutaneous Approach (ICD-10-PCS; 2023-10-27)
PROC: 3E043XZ Introduction of Vasopressor into Central Vein, Percutaneous Approach (ICD-10-PCS; 2023-10-27)
PROC: 5A1223Z Performance of Cardiac Pacing, Continuous (ICD-10-PCS; principal; 2023-10-27 16:08)
DX: A41.9 Sepsis, unspecified organism (principal); G92.8 Other toxic encephalopathy; J96.01 Acute respiratory failure with hypoxia; N17.0 Acute kidney failure with tubular necrosis; R65.21 Severe sepsis with septic shock; J18.9 Pneumonia, unspecified organism; J69.0 Pneumonitis due to inhalation of food and vomit; J81.0 Acute pulmonary edema; N18.4 Chronic kidney disease, stage 4 (severe); Z68.42 Body mass index [BMI] 45.0-49.9, adult; E87.0 Hyperosmolality and hypernatremia; E87.1 Hypo-osmolality and hyponatremia; E87.20 Acidosis, unspecified; N39.0 Urinary tract infection, site not specified; L03.115 Cellulitis of right lower limb; I48.92 Unspecified atrial flutter; E87.6 Hypokalemia; E78.5 Hyperlipidemia, unspecified; E11.22 Type 2 diabetes mellitus with diabetic chronic kidney disease; I12.9 Hypertensive chronic kidney disease with stage 1 through stage 4 chronic kidney disease, or unspecified chronic kidney disease; D63.1 Anemia in chronic kidney disease; E66.01 Morbid (severe) obesity due to excess calories; E03.9 Hypothyroidism, unspecified; E87.70 Fluid overload, unspecified; E11.51 Type 2 diabetes mellitus with diabetic peripheral angiopathy without gangrene; F32.A Depression, unspecified; I44.1 Atrioventricular block, second degree; I48.0 Paroxysmal atrial fibrillation; E83.42 Hypomagnesemia; I49.5 Sick sinus syndrome; Z79.01 Long term (current) use of anticoagulants; Z79.890 Hormone replacement therapy; Z79.4 Long term (current) use of insulin; Z79.85 Long-term (current) use of injectable non-insulin antidiabetic drugs; Z79.899 Other long term (current) drug therapy; Z87.891 Personal history of nicotine dependence; Z79.84 Long term (current) use of oral hypoglycemic drugs
CPT/HCPCS: 36415; 36556; 36600; 70450; 71045; 80051; 80053; 80202; 81001; 82565; 82805; 83605; 83735; 83880; 84100; 84132; 84145; 84439; 84443; 84481; 84484; 84520; 85025; 85610; 85730; 87040; 87070; 87205; 93005; 93308; 94002; 94003; 94640; 94660; 94760; 99291